=== PATIENT | female | born 2000 | race Caucasian/White ===

== ENCOUNTER 2018-05-29 18:23 | Emergency (ER) | payer OTHER ==
--- NOTE | 2018-05-29 20:29 | ER ---
Nurse's Notes [facility] Name: Mckenna Lou Age: 17 yrs Sex: Female : 2000 Arrival Date: 05/29/2018 Time: 18:25 Bed Treatment Private MD: None, None Diagnosis: Unspecified otitis externa, right ear Presentation: 05/29 19:04 Presenting complaint: Right ear pain x 2 weeks. Denies fever. Pt also reports she is hb approx 2 month . Transition of care: patient was not received from another setting of care. Onset of symptoms was May 18, 2018. Risk Assessment: Do you want to hurt yourself or someone else? Patient reports no desire to harm self or others. Care prior to arrival: None. 19:04 Method Of Arrival: Ambulatory hb 19:04 Acuity: VICKY 4 hb 20:21 Initial Sepsis Screen: Does the patient meet any 2 criteria? No. Patient's initial mg2 sepsis screen is negative. Does the patient have a suspected source of infection? No. Patient's initial sepsis screen is negative. 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 - Social history:: Smoking status: Patient/guardian denies using tobacco. - Ebola Screening: : No symptoms or risks identified at this time. Screenin:20 Abuse screen: Denies threats or abuse. Denies injuries from another. Nutritional mg2 screening: No deficits noted. Tuberculosis screening: No symptoms or risk factors identified. Fall Risk None identified. Assessment: 20:18 General: Appears in no apparent distress. comfortable, Behavior is calm, cooperative. mg2 Pain: Complains of pain in right ear Pain radiates to jaw Pain currently is 2 out of 10 on a pain scale. Quality of pain is described as aching, Pain began gradually, 2 weeks ago Is intermittent. Neuro: Level of Consciousness is awake, alert, obeys commands, Oriented to person, place, time, situation. Cardiovascular: Capillary refill < 3 seconds Patient's skin is warm and dry. Respiratory: Airway is patent Respiratory effort is even, unlabored, Respiratory pattern is regular, symmetrical. GI: No signs and/or symptoms were reported involving the gastrointestinal system. : No signs and/or symptoms were reported regarding the genitourinary system. EENT: Ear canal redness . Reports pain in right ear. Derm: Skin is intact, is healthy with good turgor, Skin is pink, warm \T\ dry. normal. Musculoskeletal: Circulation, motion, and sensation intact. Capillary refill < 3 seconds. Vital Signs: 19:05 BP 100 / 73; Pulse 76; Resp 16; Temp 97.9; Pulse Ox 100% on R/A; Pain 8/10; hb ED Course: 18:25 Patient arrived in ED. sb2 18:26 None, None is Private Physician. sb2 19:05 Triage completed. hb 19:06 Arm band placed on. hb 19:40 Michael Parr NP is PHCP. pm1 19:40 Ayush Mari MD is Attending Physician. pm1 20:09 Mohit Choi, FLORENCE is Primary Nurse. mg2 20:20 No provider procedures requiring assistance completed. Patient did not have IV access mg2 during this emergency room visit. 20:21 Patient has correct armband on for positive identification. Door closed. mg2 Administered Medications: No medications were administered Outcome: 20:29 Discharge ordered by MD. pm1 20:42 Discharged to home ambulatory, with family. mg2 20:42 Condition: stable 20:42 Discharge instructions given to patient, family, Instructed on discharge instructions, follow up and referral plans. medication usage, Demonstrated understanding of instructions, follow-up care, medications. 20:43 Patient left the ED. mg2 Signatures: Michael Parr NP MATERIAL CONTROL SUPERVISOR pm1 Svetlana Chacon RN RN Emmy Cornelius sb2 Mohit Choi, FLORENCE RN mg2 Corrections: (The following items were deleted from the chart) 19:07 19:04 Presenting complaint: Right ear pain x 2 weeks. Denies fever hb hb
--- NOTE | 2018-05-29 20:30 | EDPHYS ---
Physician Documentation [facility] Name: Mckenna Lou Age: 17 yrs Sex: Female : 2000 Arrival Date: 05/29/2018 Time: 18:25 Bed Treatment Private MD: None, None ED Physician Ayush Mari HPI: 05/29 20:25 This 17 yrs old Female presents to ER via Ambulatory with complaints of Right pm1 Ear Pain. 20:25 The patient presents with pain. The complaints affect the right ear. Onset: The pm1 symptoms/episode began/occurred 2 week(s) ago. Modifying factors: The symptoms are alleviated by nothing, the symptoms are aggravated by nothing. Associated signs and symptoms: Pertinent negatives: cough, fever, rhinorrhea. Severity of symptoms: in the emergency department the symptoms are worse. The patient has not experienced similar symptoms in the past. The patient has not recently seen a physician, and does not have an established primary care provider. Pain coming and going for the past two weeks. Worse the past few days. Patient has been taking baths. 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 - Social history:: Smoking status: Patient/guardian denies using tobacco. - Ebola Screening: : No symptoms or risks identified at this time. ROS: 20:25 Constitutional: Negative for fever, chills, and weight loss, Eyes: Negative for injury, pm1 pain, redness, and discharge. 20:25 Neck: Negative for injury, pain, and swelling, Cardiovascular: Negative for chest pain, palpitations, and edema, Respiratory: Negative for shortness of breath, cough, wheezing, and pleuritic chest pain, Abdomen/GI: Negative for abdominal pain, nausea, vomiting, diarrhea, and constipation, Back: Negative for injury and pain, : Negative for injury, bleeding, discharge, and swelling, MS/Extremity: Negative for injury and deformity, Skin: Negative for injury, rash, and discoloration, Neuro: Negative for headache, weakness, numbness, tingling, and seizure. 20:25 ENT: Positive for ear pain, Negative for drainage from ear(s), hearing loss, rhinorrhea, sinus congestion, sinus pain, sore throat, dental pain, difficulty swallowing, difficulty handling secretions, hoarseness. Exam: 20:25 Constitutional: This is a well developed, well nourished patient who is awake, alert, pm1 and in no acute distress. Head/Face: Normocephalic, atraumatic. Eyes: Pupils equal round and reactive to light, extra-ocular motions intact. Lids and lashes normal. Conjunctiva and sclera are non-icteric and not injected. Cornea within normal limits. Periorbital areas with no swelling, redness, or edema. 20:25 Neck: Trachea midline, no thyromegaly or masses palpated, and no cervical lymphadenopathy. Supple, full range of motion without nuchal rigidity, or vertebral point tenderness. No Meningismus. Chest/axilla: Normal chest wall appearance and motion. Nontender with no deformity. No lesions are appreciated. Cardiovascular: Regular rate and rhythm with a normal S1 and S2. No gallops, murmurs, or rubs. Normal PMI, no JVD. No pulse deficits. Respiratory: Lungs have equal breath sounds bilaterally, clear to auscultation and percussion. No rales, rhonchi or wheezes noted. No increased work of breathing, no retractions or nasal flaring. Abdomen/GI: Soft, non-tender, with normal bowel sounds. No distension or tympany. No guarding or rebound. No evidence of tenderness throughout. Back: No spinal tenderness. No costovertebral tenderness. Full range of motion. Skin: Warm, dry with normal turgor. Normal color with no rashes, no lesions, and no evidence of cellulitis. MS/ Extremity: Pulses equal, no cyanosis. Neurovascular intact. Full, normal range of motion. 20:25 ENT: External ear(s): pain with movement, Ear canal(s): erythema, that is minimal, of the right canal, swelling, that is minimal, TM's: are normal, no evidence of bulging, no dullness, no erythema, no fluid levels, no hemotympanum, no rupture, normal bony landmarks, Examination of the other ear shows no obvious abnormality, Nose: no acute changes, Mouth: is normal, no gum abnomalities, no lip abnormalities, no mucosal abnormalities, no tongue abnormalities, Dental exam: normal, no dental caries, no injury, no missing teeth, no pain, no trismus. 20:25 Neuro: Orientation: is normal, Motor: is normal, Gait: is steady, at a normal pace, without difficulty. Vital Signs: 19:05 BP 100 / 73; Pulse 76; Resp 16; Temp 97.9; Pulse Ox 100% on R/A; Pain 8/10; hb MDM: 19:50 Patient medically screened. [facility] 20:25 Data reviewed: vital signs. Data interpreted: Pulse oximetry: on room air is 100 %. pm1 Interpretation: normal. Counseling: I had a detailed discussion with the patient and/or guardian regarding: the historical points, exam findings, and any diagnostic results supporting the discharge/admit diagnosis, the need for outpatient follow up, to return to the emergency department if symptoms worsen or persist or if there are any questions or concerns that arise at home. Administered Medications: No medications were administered Disposition: 05/30 07:38 Co-signature as Attending Physician, Ayush Mari MD I agree with the assessment and [facility] plan of care. Disposition: 05/29/18 20:29 Discharged to Home. Impression: Unspecified otitis externa, right ear. - Condition is Stable. - Discharge Instructions: Ear Drops, Adult, Otitis Externa. - Prescriptions for Cortisporin 3.5- 10,000-1 mg/mL-unit/mL-% Otic solution - instill 4 drop by OTIC route every 6 hours for 10 days dispense suspension; 10 milliliter. - Medication Reconciliation Form, Thank You Letter, Antibiotic Education form. - Follow up: Emergency Department; When: As needed; Reason: Worsening of condition. Follow up: Private Physician; When: 2 - 3 days; Reason: Recheck today's complaints, Continuance of care, Re-evaluation by your physician. - Problem is new. - Symptoms have improved. Signatures: Ayush Mari MD MD cha Marinas, Patrick, PRESENTATION DESIGNER PRESENTATION DESIGNER pm1 Svetlana Chacon, FLORENCE RN hb Mohit Choi RN RN mg2 Corrections: (The following items were deleted from the chart) 05/29 20:43 20:29 05/29/2018 20:29 Discharged to Home. Impression: Unspecified otitis externa, mg2 right ear. Condition is Stable. Forms are Medication Reconciliation Form, Thank You Letter, Antibiotic Education, Prescription Opioid Use. Follow up: Emergency Department; When: As needed; Reason: Worsening of condition. Follow up: Private Physician; When: 2 - 3 days; Reason: Recheck today's complaints, Continuance of care, Re-evaluation by your physician. Problem is new. Symptoms have improved. pm1
== END 2018-05-29 20:43 | disposition home or self-care (01) ==
LOC: ER 18:23
DX: H60.91 Unspecified otitis externa, right ear (principal)
CPT/HCPCS: 99281

== ENCOUNTER 2018-06-24 17:59 | Emergency (ER) | payer OTHER ==
--- OUTSIDE RECORDS SUMMARY | 2018-06-24 18:01 | XMS REPORT ---
:2000 [facility] [address] [place] [address] Dr. Torres [address] [place] [id number] Care Team Providers Name Role Phone Unavailable Unavailable Unavailable Problems This patient has no known problems. Allergies, Adverse Reactions, Alerts This patient has no known allergies or adverse reactions. Medications This patient has no known medications.
[2018-06-24 22:03] LABS: Urine Blood NEGATIVE (NEG); Urine Glucose NEGATIVE (NEG); Urine Protein NEGATIVE (NEG)
[2018-06-24] MEDS ORDERED: NA CHLORIDE 0.9% 1,000 ML ONE (22:08)
[2018-06-24 22:23] LABS: Absolute Lymphocytes (CBC) 3.2 K/uL (0.7-4.9); Absolute Monocytes 0.7 K/uL (0.1-1.3); Absolute Neutrophil 8.2 K/uL (1.8-8.0); Basophils % 0.3 % (0-1.3); Eosinophils % 1.2 % (0-4.4); Hematocrit 40.4 % (36.0-45.0); Lymphocytes % 26.1 % (15.3-44.8); MPV 8.5 fL (7.6-11.3); Monocytes % 5.9 % (3.3-12.3); RBC Red Blood Cell Count 4.88 M/uL (3.86-4.86)
--- NOTE | 2018-06-24 22:45 | ER ---
Nurse's Notes [facility] Name: Mckenna Lou Age: 18 yrs Sex: Female : 2000 Arrival Date: 06/24/2018 Time: 18:05 Bed 11 Private MD: Diagnosis: related conditions, unspecified, first trimester;Headache;Dizziness and giddiness Presentation: 06/24 18:29 Presenting complaint: Patient states: intermittent lightheadedness and dizziness that ss began this morning. Pt reports she is 12 weeks . Transition of care: patient was not received from another setting of care. Onset of symptoms was June 24, 2018. Risk Assessment: Do you want to hurt yourself or someone else?. Initial Sepsis Screen: Does the patient meet any 2 criteria? No. Patient's initial sepsis screen is negative. Does the patient have a suspected source of infection? No. Patient's initial sepsis screen is negative. Care prior to arrival: None. 18:29 Method Of Arrival: Ambulatory ss 18:29 Acuity: VICKY 3 ss Historical: - Allergies: 18:31 No Known Allergies; ss - Home Meds: 18:31 None [Active]; ss - PMHx: 18:31 None; ss - PSHx: 18:31 None; ss - Immunization history:: Adult Immunizations up to date. - Social history:: Smoking status: Patient/guardian denies using tobacco. - Ebola Screening: : Patient denies exposure to infectious person Patient denies travel to an Ebola-affected area in the 21 days before illness onset. - Family history:: not pertinent. Screenin/12 00:26 Abuse screen: Denies threats or abuse. Denies injuries from another. Nutritional lp1 screening: No deficits noted. Tuberculosis screening: No symptoms or risk factors identified. Fall Risk None identified. Assessment: 06/24 21:30 General: Appears in no apparent distress. Behavior is appropriate for age. Pain: lp1 Complains of pain in head Pain currently is 6 out of 10 on a pain scale. Also complains of photophobia, inability to concentrate. Neuro: Level of Consciousness is awake, alert, obeys commands, Reports headache in entire. Cardiovascular: Patient's skin is warm and dry. Respiratory: Respiratory effort is even, unlabored. GI: No deficits noted. Patient currently denies cramping. : No signs and/or symptoms were reported regarding the genitourinary system. EENT: No signs and/or symptoms were reported regarding the EENT system. Derm: Skin is pink, warm \T\ dry. Musculoskeletal: No deficits noted. 06/25 00:25 Reassessment: Patient appears in no apparent distress at this time. Patient is alert, lp1 oriented x 3, equal unlabored respirations, skin warm/dry/pink. Patient states feeling better. Vital Signs: 06/24 18:31 BP 112 / 64; Pulse 89; Resp 16; Temp 98.1(TE); Pulse Ox 97% on R/A; Weight 48.08 kg; ss Height 5 ft. 1 in. (154.94 cm); Pain 0/10; 20:24 BP 122 / 66; Pulse 80; Resp 16; Pulse Ox 98% on R/A; ea 03 00:24 BP 124 / 65; Pulse 87; Resp 16; Pulse Ox 99% on R/A; Pain 1/10; lp1 03 18:31 Body Mass Index 20.03 (48.08 kg, 154.94 cm) ED Course: 06/24 18:05 Patient arrived in ED. mr 18:30 Triage completed. ss 18:31 Arm band placed on right wrist. ss 21:05 Maureen Stanley, [place]OR[place] is Primary Nurse. lp1 21:06 Ayush Mari MD is Attending Physician. luis 21:[address] via wheelchair. vm2 21:45 Matter Eval Tm 1 In Process Unspecified. EDMS 21:46 CT completed. Patient tolerated procedure well. Patient moved back from CT. vm2 21:54 CT Head Brain wo Cont In Process Unspecified. EDMS 22:22 Inserted saline lock: 22 gauge in right antecubital area, using aseptic technique. lp1 Blood collected. 03 00:26 No provider procedures requiring assistance completed. IV discontinued, No lp1 redness/swelling at site. Pressure dressing applied. 00:27 Patient has correct armband on for positive identification. lp1 Administered Medications: 06/24 22:23 Drug: NS 0.9% 1000 ml Route: IV; Rate: 1 bolus; Site: right antecubital; lp1 06/25 00:00 Follow up: IV Status: Completed infusion; IV Intake: 1000ml lp1 Intake: 00:00 IV: 1000ml; Total: 1000ml. lp1 Outcome: 06/24 22:45 Discharge ordered by . luis 06/25 00:28 Discharged to home ambulatory, with significant other. lp1 Condition: good Discharge instructions given to patient, Instructed on discharge instructions, follow up and referral plans. medication usage, Demonstrated understanding of instructions, follow-up care, medications, Prescriptions given X 1. 00:29 Patient left the ED. lp1 Signatures: Dispatcher [employer] [facility] Ayush Mari MD MD cha Rivera, Pattie mr Flor Silva, RN RN Maureen Hanks RN RN lp1 Tonja Vazquez 2 Nithya Cardona RN RN edilberto Corrections: (The following items were deleted from the chart) 00:27 06/24 22:22 Inserted saline lock: 20 gauge in right antecubital area, using aseptic lp1 technique. Blood collected. lp1 06/25 00:28 06/24 21:30 Pain: Complains of pain in head Pain currently is 6 out of 10 on a pain lp1 scale. lp1 06/25 00:28 06/24 21:30 Neuro: Level of Consciousness is awake, alert, obeys commands, Reports lp1 headache in entire lp1
--- NOTE | 2018-06-24 22:45 | EDPHYS ---
Physician Documentation [facility] Name: Mckenna Lou Age: 18 yrs Sex: Female : 2000 Arrival Date: 06/24/2018 Time: 18:05 Bed 11 Private MD: ED Physician Ayush Mari HPI: 06/24 21:26 This 18 yrs old Female presents to ER via Ambulatory with complaints of 12 luis wks , Dizziness, Blurred Vision, Headache. 21:26 The patient presents with dizziness, feeling faint. Onset: The symptoms/episode luis began/occurred just prior to arrival, this morning. Context: occurred at work. Modifying factors: The symptoms are alleviated by nothing, the symptoms are aggravated by nothing. Associated signs and symptoms: The patient has no apparent associated signs or symptoms. Severity of symptoms: At their worst the symptoms were. Patient's baseline: Neuro: alert and fully oriented. The patient has not experienced similar symptoms in the past. Historical: - Allergies: 18:31 No Known Allergies; ss - Home Meds: 18:31 None [Active]; ss - PMHx: 18:31 None; ss - PSHx: 18:31 None; ss - Immunization history:: Adult Immunizations up to date. - Social history:: Smoking status: Patient/guardian denies using tobacco. - Ebola Screening: : Patient denies exposure to infectious person Patient denies travel to an Ebola-affected area in the 21 days before illness onset. - Family history:: not pertinent. ROS: 21:26 Constitutional: Negative for fever, chills, and weight loss, Eyes: Negative for injury, luis pain, redness, and discharge, ENT: Negative for injury, pain, and discharge, Neck: Negative for injury, pain, and swelling, Cardiovascular: Negative for chest pain, palpitations, and edema, Respiratory: Negative for shortness of breath, cough, wheezing, and pleuritic chest pain, Back: Negative for injury and pain, : Negative for injury, bleeding, discharge, and swelling, MS/Extremity: Negative for injury and deformity, Skin: Negative for injury, rash, and discoloration, Neuro: Negative for headache, weakness, numbness, tingling, and seizure, Psych: Negative for depression, anxiety, suicide ideation, homicidal ideation, and hallucinations, Allergy/Immunology: Negative for hives, rash, and allergies, Endocrine: Negative for neck swelling, polydipsia, polyuria, polyphagia, and marked weight changes, Hematologic/Lymphatic: Negative for swollen nodes, abnormal bleeding, and unusual bruising. 21:26 Abdomen/GI: Positive for abdominal pain, of the suprapubic area. Exam: 21:26 Constitutional: This is a well developed, well nourished patient who is awake, alert, luis and in no acute distress. Head/Face: Normocephalic, atraumatic. Eyes: Pupils equal round and reactive to light, extra-ocular motions intact. Lids and lashes normal. Conjunctiva and sclera are non-icteric and not injected. Cornea within normal limits. Periorbital areas with no swelling, redness, or edema. ENT: Nares patent. No nasal discharge, no septal abnormalities noted. Tympanic membranes are normal and external auditory canals are clear. Oropharynx with no redness, swelling, or masses, exudates, or evidence of obstruction, uvula midline. Mucous membranes moist. Neck: Trachea midline, no thyromegaly or masses palpated, and no cervical lymphadenopathy. Supple, full range of motion without nuchal rigidity, or vertebral point tenderness. No Meningismus. Chest/axilla: Normal chest wall appearance and motion. Nontender with no deformity. No lesions are appreciated. Cardiovascular: Regular rate and rhythm with a normal S1 and S2. No gallops, murmurs, or rubs. Normal PMI, no JVD. No pulse deficits. Respiratory: Lungs have equal breath sounds bilaterally, clear to auscultation and percussion. No rales, rhonchi or wheezes noted. No increased work of breathing, no retractions or nasal flaring. Back: No spinal tenderness. No costovertebral tenderness. Full range of motion. Skin: Warm, dry with normal turgor. Normal color with no rashes, no lesions, and no evidence of cellulitis. MS/ Extremity: Pulses equal, no cyanosis. Neurovascular intact. Full, normal range of motion. Neuro: Awake and alert, GCS 15, oriented to person, place, time, and situation. Cranial nerves II-XII grossly intact. Motor strength 5/5 in all extremities. Sensory grossly intact. Cerebellar exam normal. Normal gait. 21:26 Abdomen/GI: Inspection: abdomen appears normal, Bowel sounds: normal, Palpation: nontender, Liver: no appreciated palpable abnormalities, Hernia: not appreciated. Vital Signs: 18:31 BP 112 / 64; Pulse 89; Resp 16; Temp 98.1(TE); Pulse Ox 97% on R/A; Weight 48.08 kg; ss Height 5 ft. 1 in. (154.94 cm); Pain 0/10; 20:24 BP 122 / 66; Pulse 80; Resp 16; Pulse Ox 98% on R/A; ea 06/25 00:24 BP 124 / 65; Pulse 87; Resp 16; Pulse Ox 99% on R/A; Pain 1/10; lp1 06/24 18:31 Body Mass Index 20.03 (48.08 kg, 154.94 cm) ss MDM: 06/24 21:06 Patient medically screened. [facility] 21:28 Data reviewed: vital signs, nurses notes, lab test result(s), radiologic studies, luis ultrasound. 06/24 21:26 Order name: Quantitative Hcg; Complete Time: 23:19 [facility] 06/24 21:26 Order name: Abo/rh Typing; Complete Time: 23:19 [facility] 06/24 21:26 Order name: Basic Metabolic Panel; Complete Time: 23:19 [facility] 06/24 21:26 Order name: CBC with Diff; Complete Time: 22:41 [facility] 06/24 21:26 Order name: Urine Culture [facility] 06/24 21:43 Order name: Urine Dipstick--Ancillary (enter results); Complete Time: 22:41 ms 06/24 21:26 Order name: Urine Test (obtain specimen); Complete Time: 21:45 [facility] 06/24 21:26 Order name: IV Saline Lock; Complete Time: 22:43 [facility] 06/24 21:26 Order name: Labs collected and sent; Complete Time: 22:43 [facility] 06/24 21:26 Order name: CT Head Brain wo Cont [facility] 06/24 21:43 Order name: Urine --Ancillary (enter results); Complete Time: 22:41 ms 06/24 21:45 Order name: Matter Eval Tm 1 EDMS 06/24 21:26 Order name: NPO; Complete Time: 22:43 [facility] 06/24 21:26 Order name: Urine Dipstick-Ancillary (obtain specimen); Complete Time: 21:45 [facility] Administered Medications: 22:23 Drug: NS 0.9% 1000 ml Route: IV; Rate: 1 bolus; Site: right antecubital; lp1 06/25 00:00 Follow up: IV Status: Completed infusion; IV Intake: 1000ml lp1 Disposition: 06/24/18 22:45 Discharged to Home. Impression: related conditions, unspecified, first trimester, Headache, Dizziness and giddiness. - Condition is Stable. - Discharge Instructions: Dizziness, General Headache Without Cause, First Trimester of , [id number], First Trimester of , Pelvic Rest, General Headache Without Cause, [id number], Dizziness, [id number]. - Prescriptions for Vitamin 27- 0.8 mg Oral Tablet - take 1 tablet by ORAL route once daily; 30 tablet. - Medication Reconciliation Form, Thank You Letter, Antibiotic Education, Prescription Opioid Use form. - Follow up: Private Physician; When: 2 - 3 days; Reason: Recheck today's complaints, Continuance of care, Re-evaluation by your physician. - Problem is new. - Symptoms have improved. Signatures: Dispatcher [employer] [facility] Ayush Mari MD MD cha Smirch, Shelby, RN RN Maureen Stanley RN RN lp1 Corrections: (The following items were deleted from the chart) 06/24 21:44 21:27 OB Limited+US.RAD.BRZ ordered. [facility] 06/25 00:29 06/24 22:45 06/24/2018 22:45 Discharged to Home. Impression: related lp1 conditions, unspecified, first trimester; Headache; Dizziness and giddiness. Condition is Stable. Discharge Instructions: Dizziness, General Headache Without Cause, First Trimester of , [id number], First Trimester of , Pelvic Rest, General Headache Without Cause, Zemi-[id number], Dizziness, [id number]. Prescriptions for Vitamin 27-0.8 mg Oral Tablet - take 1 tablet by ORAL route once daily; 30 tablet. and Forms are Medication Reconciliation Form, Thank You Letter, Antibiotic Education, Prescription Opioid Use. Follow up: Private Physician; When: 2 - 3 days; Reason: Recheck today's complaints, Continuance of care, Re-evaluation by your physician. Problem is new. Symptoms have improved. luis
[2018-06-24 23:02] LABS: BUN Blood Urea Nitrogen 8 mg/dL (7-18); Bicarbonate 24 mmol/L (21-32); Glucose Level 81 mg/dL (74-106); HCG, Quantitative 66555 mIU/mL (1-3); Potassium 3.8 mmol/L (3.5-5.1); Sodium Level 136 mmol/L (136-145)
--- NOTE | 2018-06-25 08:57 | RAD REPORT ---
EXAM DESCRIPTION: US - Matter Amyal Tm 1 - 06/24/2018 9:45 pm CLINICAL HISTORY: , abdominal and pelvic pain and cramping Preliminary findings were provided at the time of the study. COMPARISON: None. FINDINGS: A single intrauterine gestation is identified. Heart rate is 168 bpm. No hematoma, mass or other suspicious finding. Hazard-rump length measurement corresponds to a 12 W 3 D age. EWA is 2018. No suspicion for placental abnormality. Neither ovary was identifiable. No adnexal abnormality seen. No blood or fluid in the cul de sac. IMPRESSION: Single 12 W 3 D intrauterine gestation. EWA is 01/03/2019. No uterine or adnexal abnormalities seen.
--- NOTE | 2018-06-25 11:58 | RAD REPORT ---
EXAM DESCRIPTION: CT - Head Brain Wo Cont - 06/24/2018 9:54 pm CLINICAL HISTORY: The patient is 18 years old and is Female; intermittent lightheadedness and dizzin ess TECHNIQUE: Axial computed tomography images of the head/brain without intravenous contrast. Sagitt al and coronal reformatted images were created and reviewed. This CT exam was performed using one o r more of the following dose reduction techniques: automated exposure control, adjustment of the mA and/or kV according to patient size, and/or use of iterative reconstruction technique. COMPARISON: No relevant prior studies available. FINDINGS: Brain: Unremarkable. The concepcion-white matter differentiation is preserved . No hemorrhag e. No significant white matter disease. No edema. No extra-axial fluid collections. Ventricles: Unremarkable. No ventriculomegaly. Bones/joints: No acute fracture. Soft tissues: Unremarkable. Sinuses: Unremarkable as visualized. No acute sinusitis. Mastoid air cells: Unremarkable as visualized. No mastoid effusion. IMPRESSION: No acute intracranial findings. Electronically signed by: Dorothy Gary MD 06/24/2018 9:59 PM CDT Due to temporary technical issues with the PACS/Fluency reporting system, reports are being signed by the in house radiologist as a courtesy to ensure prompt reporting. The interpreting radiologist is f ully responsible for the content of the report.
== END 2018-06-25 00:29 | disposition home or self-care (01) ==
LOC: ER 17:59
DX: O26.891 Other specified pregnancy related conditions, first trimester (principal); R42 Dizziness and giddiness; R51 Headache; Z3A.12 12 weeks gestation of pregnancy
CPT/HCPCS: 36415; 70450; 76801; 80048; 81003; 81025; 84702; 85025; 86900; 86901; 87086; 87088; 96360; 96361; 99284; J7030

== ENCOUNTER 2019-09-24 12:04 | Emergency (ER) | payer OTHER ==
--- OUTSIDE RECORDS SUMMARY | 2019-09-24 12:07 | XMS REPORT | Continuity of Care Document ---
:2000 Author Organization [facility] t Address [address] [place] [address] Care Team Providers Name Role Phone Carlos HENRIQUEZ Attending Clinician Unavailable Armond Cunningham MD Attending Clinician Naomy Odonnell CRNA Attending Clinician Doctor Unassigned, Name Attending Clinician Unavailable Marty BRAND Attending Clinician Dina HENRIQUEZ Attending Clinician Unavailable [facility] Attending Clinician Armond Cunningham MD Admitting Clinician Marty BRAND Admitting Clinician Problems This patient has no known problems. Allergies, Adverse Reactions, Alerts This patient has no known allergies or adverse reactions. Medications This patient has no known medications. Procedures This patient has no known procedures. Encounters Start End Encounter Admission Attending Care Care Encounter Source Date/Time Date/Time Type Type Clinicians Facility Department ID 2019-09-18 2019-09-18 Nurse Camryn Gonzalez [id number] 00:00:00 00:00:00 Triage ARIADNE [id number] [facility] [id number] 2018-12-13 2018-12-16 [facility] Moon Cunningham [id number] 07:25:00 12:05:00 Encounter Armond Meredith [id number] [place] [id number] [place] [id number] 2018-12-14 2018-12-14 Anesthesia [place], [facility] [id number] 08:17:00 10:21:00 Irineo Meredith [id number] [place] [id number] [place] [id number] 2018-12-11 2018-12-11 Routine Cunningham, Moon [facility] [id number] 15:00:14 16:08:54 Armond Meredith 350.1.13.10 Visit [place] [id number] [facility] [id number] [address] 2018-12-11 2018-12-11 Orders Doctor KOBI [id number] 00:00:00 00:00:00 Only Unassigned, ARIADNE 350.1.13.10 [place] [id number] 2018-12-07 2018-12-08 [facility] KOBI Ferguson [id number] 22:27:00 02:15:00 Encounter Rosa Elena ARIADNE [id number] [place] [id number] [id number] 2018-12-07 2018-12-07 Nurse Milka Arroyo [id number] 00:00:00 00:00:00 Triage ARIADNE 350.1.13.10 [place] [id number] 2018-12-07 2018-12-07 Orders Doctor KOBI [id number] 00:00:00 00:00:00 Only Unassigned, ARIADNE 350.1.13.10 [place] [address]686 [id number] 2018-12-03 2018-12-03 [facility] [id number] 12:47:14 21:55:17 Visit [facility] [id number] [facility] [id number] [id number] 2018-11-20 2018-11-20 Orders Doctor PEACE [id number] 00:00:00 00:00:00 Only Unassigned, ARIADNE 350.1.13.10 [place] [facility] 4.2.7.2.686 [id number] 2018-11-18 2018-11-18 Patient Doctor KOBI [id number] 00:00:00 00:00:00 Secure Msg Unassigned, [facility]13.10 [facility] [id number] [id number] Results This patient has no known results.
--- OUTSIDE RECORDS SUMMARY | 2019-09-24 12:07 | XMS REPORT | Summary of Care ---
:2000 Author Organization [facility] Address [address] [place] [id number] Care Team Providers Name Role Phone Moon Cunningham MD Primary Care Provider Reason for Visit Reason Comments Assessment calf/ankle pain, swelling Encounter Details Date Type Department Care Team Description 09/18/2019 Nurse Triage [facility] Camryn Gonzalez RN Assessment (calf/ankle [address] pain, swellin g) [place] [address] Allergies No Known Allergiesdocumented as of this encounter (statuses as of 09/18/2019) Medications Medication Sig Dispensed Refills Start Date End Date Status vitamin w/FA Take 1 tablet by 100 tablet 3 12/16/2018 Active tabletIndications: 36 mouth daily. weeks gestation of , Maternal care for decelerations during , labor in third trimester with delivery, single or unspecified fetus, Liveborn infant, of sprague , born in hospital by delivery documented as of this encounter (statuses as of 09/18/2019) Active Problems Problem Noted Date depression 01/27/2019 labor 12/14/2018 documented as of this encounter (statuses as of 09/18/2019) Resolved Problems Problem Noted Date Resolved Date Liveborn infant, of sprague , born in hospital by 12/14/2018 01/27/2019 delivery Maternal care for decelerations during 12/1301/27/2019 Threatened labor, third trimester 12/13/2018 12/14/2018 36 weeks gestation of 12/01/2018 01/28/20 Abdominal pain affecting , antepartum 12/01/2018 12/13/2018 26 weeks gestation of 10/04/2018 12/14/19 19 documented as of this encounter (statuses as of 09/18/2019) Immunizations Name Administration Dates Next Due Influenza Virus Vaccine Quad .5 mL IM 6+ MO 06/12/2018 06/12/2019 TDAP (ADACEL) VACCINE 10/15/2018 documented as of this encounter Social History Tobacco Use Types Packs/Day Years Used Date Never Smoker Smokeless Tobacco: Never Used Alcohol Use Drinks/Week oz/Week Comments No Sex Assigned at Date Recorded Not on file Job Start Date Occupation Industry Not on file Not on file Not on file Travel History Travel Start Travel End No recent travel history available. COVID-19 Exposure Response Date Recorded In the last month, have you been in contact with No / Unsure 09/18/2019 9:18 PM CDT someone who was confirmed or suspected to have Coronavirus / COVID-19? documented as of this encounter Last Filed Vital Signs Not on filedocumented in this encounter Plan of Treatment Health Maintenance Due Date Last Done Comments MENINGOCOCCAL B VACCINES (1 of 2008 2 - Risk Bexsero 2-dose series) HPV VACCINES (1 - Female 2009 2-dose series) WELL CARE VISIT: 12-21 YEARS 2010 (yearly) PAP SMEAR 2019 CHLAMYDIA SCREENING 12/09/2019 12/08/2018, 06/12/2018 Depression Screening 12/12/2019 12/11/2018 INFLUENZA VACCINE (Season 12/16/2019 06/12/2018 Ended) DTaP,Tdap,and Td Vaccines (2 - 10/15/2028 10/15/2018 Td) MENINGOCOCCAL VACCINE Aged Out No longer eligible based on patient's age to complete this to pic PNEUMOCOCCAL 0-64 YEARS Aged Out No longe r eligible based COMBINED SERIES on patient's age to complete this to pic documented as of this encounter Results Not on filedocumented in this encounter Insurance Payer Benefit Plan / Subscriber ID Effective Phone Address T e Group Dates [facility] xxxxxxxxx 2018-Prese [address] Medic aid HEALTH CHOICE - HEALTH CHOICE nt [id number] 1 MANAGED MEDICAID [place], [place] [id number] documented as of this encounter
[2019-09-24 13:32] LABS: Urine Blood TRACE (NEG); Urine Glucose NEGATIVE (NEG); Urine Protein NEGATIVE (NEG)
[2019-09-24] MEDS ORDERED: ACETAMINOPHEN 325 MG TABLET ONE (13:54)
--- NOTE | 2019-09-24 14:15 | ER ---
Nurse's Notes [facility] Name: Mckenna Lou Age: 19 yrs Sex: Female : 2000 Arrival Date: 09/24/2019 Time: 12:09 Bed 18 Private MD: Diagnosis: Fever, unspecified;Acute pharyngitis Presentation: 09/23 12:12 Chief complaint: Patient states: i woke up this morning and my throat was really sore tw2 and i have a fever this morning, i took tylenol this morning about 1130, i think it might be strep. Coronavirus screen: Patient denies a cough. Patient denies shortness of breath or difficulty breathing. Patient reports a measured and/or subjective temperature greater than 100.4F. Patient denies travel on a cruise ship or to a country the [facility] currently lists as an affected area. Patient denies contact with known and/or suspected case of COVID-19. Ebola Screen: Patient denies travel to an Ebola-affected area in the 21 days before illness onset. Initial Sepsis Screen: Does the patient meet any 2 criteria? HR > 90 bpm. No. Patient's initial sepsis screen is negative. Does the patient have a suspected source of infection? No. Patient's initial sepsis screen is negative. Risk Assessment: Do you want to hurt yourself or someone else? Patient reports no desire to harm self or others. Onset of symptoms was September 24, 2019. 12:12 Method Of Arrival: Ambulatory tw2 12:12 Acuity: VICKY 4 tw2 Triage Assessment: 12:14 General: Appears in no apparent distress. slender, well groomed, Behavior is calm, tw2 cooperative, appropriate for age. Pain: Complains of pain in uvula, left aspect of posterior pharynx and right aspect of posterior pharynx and forehead. EENT: Denies nasal congestion, nasal discharge. 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 - Social history:: Smoking status: Patient/guardian denies using. Screenin:22 Abuse screen: Denies threats or abuse. Nutritional screening: No deficits noted. tw2 Tuberculosis screening: No symptoms or risk factors identified. Fall Risk None identified. Assessment: 12:20 General: Appears in no apparent distress. slender, well groomed, Behavior is calm, iw cooperative, appropriate for age. Pain: Complains of pain in right aspect of posterior pharynx and left aspect of posterior pharynx and uvula. Neuro: Level of Consciousness is awake, alert, obeys commands, Oriented to person, place, time, situation. Cardiovascular: Heart tones S1 S2 Patient's skin is warm and dry. Respiratory: Airway is patent Respiratory effort is even, unlabored, Respiratory pattern is regular, symmetrical, Breath sounds are clear bilaterally. GI: No signs and/or symptoms were reported involving the gastrointestinal system. Abdomen is flat, non-distended. : No signs and/or symptoms were reported regarding the genitourinary system. EENT: Throat is reddened Reports pain in right aspect of posterior pharynx and left aspect of posterior pharynx when swallowing. Derm: No signs and/or symptoms reported regarding the dermatologic system. Musculoskeletal: Range of motion: intact in all extremities. 13:59 Reassessment: Patient appears in no apparent distress at this time. No changes from iw previously documented assessment. Patient and/or family updated on plan of care and expected duration. Pain level reassessed. Patient is alert, oriented x 3, equal unlabored respirations, skin warm/dry/pink. pt sipping on juice at this time. 14:45 Reassessment: Patient appears in no apparent distress at this time. No changes from tw2 previously documented assessment. Patient and/or family updated on plan of care and expected duration. Pain level reassessed. Patient is alert, oriented x 3, equal unlabored respirations, skin warm/dry/pink. Vital Signs: 12:12 BP 117 / 66; Pulse 118; Resp 18; Temp 99.1(TE); Pulse Ox 98% on R/A; Weight 47.63 kg tw2 (R); Height 5 ft. 1 in. (154.94 cm); Pain 9/10; 14:01 BP 101 / 49; Pulse 92; Resp 17; Pulse Ox 100% on R/A; iw 14:45 Temp 98.8(TE); tw2 12:12 Body Mass Index 19.84 (47.63 kg, 154.94 cm) tw2 [place] Coma Score: 13:31 Eye Response: spontaneous(4). Verbal Response: oriented(5). Motor Response: obeys luis commands(6). Total: 15. ED Course: 12:09 Patient arrived in ED. mr 12:14 Triage completed. tw2 12:14 Arm band placed on. tw2 12:15 Bed in low position. Call light in reach. tw2 12:17 Sally Lee, RN is Primary Nurse. iw 12:28 Ayush Mari MD is Attending Physician. luis 13:11 Flu and/or RSV swab sent to lab. Strep swab sent to lab. jp3 13:21 Urine collected: clean catch specimen, clear, jessi colored. jp3 14:37 No provider procedures requiring assistance completed. Patient did not have IV access tw2 during this emergency room visit. Administered Medications: 13:49 Drug: Tylenol 650 mg Route: PO; hb 14:36 Follow up: Response: No adverse reaction tw2 14:30 Drug: Augmentin 875 mg Route: PO; tw2 14:45 Follow up: Response: No adverse reaction tw2 Point of Care Testing: Urine : 13:21 hCG Reading: Negative; Control Reading: Positive; jp3 Outcome: 14:13 Discharge ordered by . luis 14:37 Discharged to home ambulatory. tw2 14:45 Condition: stable tw2 14:45 Discharge instructions given to patient, Instructed on discharge instructions, follow up and referral plans. medication usage, Demonstrated understanding of instructions, follow-up care, medications, Prescriptions given X 1. 14:46 Patient left the ED. tw2 Signatures: Ayush Mari MD MD cha Rivera, Mary mr Sally Lee, RN RN Svetlana Chacon RN RN Izzy Kirk RN RN tw2 [place] jp3 Corrections: (The following items were deleted from the chart) 14:03 13:59 Reassessment: Patient appears in no apparent distress at this time. No changes iw from previously documented assessment. Patient and/or family updated on plan of care and expected duration. Pain level reassessed. Patient is alert, oriented x 3, equal unlabored respirations, skin warm/dry/pink. iw 14:04 14:01 BP 110 / 74; Pulse 92bpm; Resp 17bpm; Pulse Ox 100% RA; iw iw
--- NOTE | 2019-09-24 14:15 | EDPHYS ---
Physician Documentation [facility] Name: Mckenna Lou Age: 19 yrs Sex: Female : 2000 Arrival Date: 09/24/2019 Time: 12:09 Bed 18 Private MD: ED Physician Ayush Mari HPI: 09/23 13:25 This 19 yrs old Female presents to ER via Ambulatory with complaints of luis Fever, Sore Throat, Headache. 13:25 The patient reports fever, that was measured at 102 degrees Fahrenheit. Onset: The luis symptoms/episode began/occurred 2 day(s) ago. Onset: The symptoms/episode began/occurred acutely. Modifying factors: there are no obvious modifying factors. Associated signs and symptoms: Pertinent positives: chills, runny nose, sinus congestion. Severity of symptoms: At their worst the symptoms were mild in the emergency department the symptoms are unchanged. The patient has not experienced similar symptoms in the past. BUNDLE PERSON: 12:52 LMP 09/24/2019 tw2 Historical: - Allergies: 12:15 No Known Allergies; tw2 - Home Meds: 12:15 None [Active]; tw2 - PMHx: 12:15 None; tw2 - PSHx: 12:15 ; tw2 - Immunization history:: Adult Immunizations. - Social history:: Smoking status: Patient/guardian denies using. ROS: 13:27 Eyes: Negative for injury, pain, redness, and discharge, Neck: Negative for injury, luis pain, and swelling, Cardiovascular: Negative for chest pain, palpitations, and edema, Respiratory: Negative for shortness of breath, cough, wheezing, and pleuritic chest pain, Abdomen/GI: Negative for abdominal pain, nausea, vomiting, diarrhea, and constipation, Back: Negative for injury and pain, : Negative for injury, bleeding, discharge, and swelling, MS/Extremity: Negative for injury and deformity, Neuro: Negative for headache, weakness, numbness, tingling, and seizure, Psych: Negative for depression, anxiety, suicide ideation, homicidal ideation, and hallucinations, Allergy/Immunology: Negative for hives, rash, and allergies, Endocrine: Negative for neck swelling, polydipsia, polyuria, polyphagia, and marked weight changes, Hematologic/Lymphatic: Negative for swollen nodes, abnormal bleeding, and unusual bruising. 13:27 Constitutional: Positive for body aches, chills, fever. 13:27 ENT: Positive for difficulty swallowing, rhinorrhea, sinus congestion, sinus pain, sore throat. Exam: 13:27 Constitutional: This is a well developed, well nourished patient who is awake, alert, luis and in no acute distress. Head/Face: Normocephalic, atraumatic. Eyes: Pupils equal round and reactive to light, extra-ocular motions intact. Lids and lashes normal. Conjunctiva and sclera are non-icteric and not injected. Cornea within normal limits. Periorbital areas with no swelling, redness, or edema. Neck: Trachea midline, no thyromegaly or masses palpated, and no cervical lymphadenopathy. Supple, full range of motion without nuchal rigidity, or vertebral point tenderness. No Meningismus. Chest/axilla: Normal chest wall appearance and motion. Nontender with no deformity. No lesions are appreciated. Cardiovascular: Regular rate and rhythm with a normal S1 and S2. No gallops, murmurs, or rubs. Normal PMI, no JVD. No pulse deficits. Respiratory: Lungs have equal breath sounds bilaterally, clear to auscultation and percussion. No rales, rhonchi or wheezes noted. No increased work of breathing, no retractions or nasal flaring. Abdomen/GI: Soft, non-tender, with normal bowel sounds. No distension or tympany. No guarding or rebound. No evidence of tenderness throughout. Back: No spinal tenderness. No costovertebral tenderness. Full range of motion. Skin: Warm, dry with normal turgor. Normal color with no rashes, no lesions, and no evidence of cellulitis. MS/ Extremity: Pulses equal, no cyanosis. Neurovascular intact. Full, normal range of motion. Neuro: Awake and alert, GCS 15, oriented to person, place, time, and situation. Cranial nerves II-XII grossly intact. Motor strength 5/5 in all extremities. Sensory grossly intact. Cerebellar exam normal. Normal gait. Psych: Awake, alert, with orientation to person, place and time. Behavior, mood, and affect are within normal limits. 13:27 ENT: Posterior pharynx: Airway: normal, no evidence of obstruction, Tonsils: enlarged on the right, enlarged on the left, bilaterally enlarged, with erythema, with exudate, Uvula: normal, midline, non-edematous, no erythema, swelling, is not appreciated, that is mild, erythema, is not appreciated, that is mild, exudate, is not appreciated, peritonsillar mass, is not appreciated. 13:27 Neck: ROM/movement: is normal, no acute changes, Meningeal signs: are not present, Kernig's sign is negative, Brudzinski's sign is negative. Vital Signs: 12:12 BP 117 / 66; Pulse 118; Resp 18; Temp 99.1(TE); Pulse Ox 98% on R/A; Weight 47.63 kg tw2 (R); Height 5 ft. 1 in. (154.94 cm); Pain 9/10; 14:01 BP 101 / 49; Pulse 92; Resp 17; Pulse Ox 100% on R/A; iw 14:45 Temp 98.8(TE); tw2 12:12 Body Mass Index 19.84 (47.63 kg, 154.94 cm) tw2 [place] Coma Score: 13:31 Eye Response: spontaneous(4). Verbal Response: oriented(5). Motor Response: obeys [facility] commands(6). Total: 15. MDM: 12:28 Patient medically screened. [facility] 13:29 Data reviewed: vital signs, nurses notes, lab test result(s), Flu: strep. [facility] 13:31 Differential diagnosis: viral Infection, bacterial infection, URI, bronchitis, group A luis strep tonsillitis. Data interpreted: monitor worker: not applicable for this patient encounter. Pulse oximetry: on room air is 98 %. Counseling: I had a detailed discussion with the patient and/or guardian regarding: the historical points, exam findings, and any diagnostic results supporting the discharge/admit diagnosis, lab results. 14:08 ED course: weak, fever , sore throat and weakness. [facility] 14:45 ED course: case and finding explained to the patient. a note to work was givin to the [facility] patient through 09/26/19. 09/23 13:04 Order name: Flu; Complete Time: 14:04 iw 09/23 13:04 Order name: Strep; Complete Time: 14:04 09/23 13:27 Order name: Urine Dipstick--Ancillary (enter results); Complete Time: 14:04 09/23 13:27 Order name: Urine --Ancillary (enter results); Complete Time: 14:04 09/23 13:49 Order name: Throat Culture [facility] 09/23 13:30 Order name: PO challenge; Complete Time: 13:44 [facility] Administered Medications: 13:49 Drug: Tylenol 650 mg Route: PO; 14:36 Follow up: Response: No adverse reaction tw2 14:30 Drug: Augmentin 875 mg Route: PO; tw2 14:45 Follow up: Response: No adverse reaction tw2 Point of Care Testing: Urine : 13:21 hCG Reading: Negative; Control Reading: Positive; jp3 Disposition: 09/24/19 14:13 Discharged to Home. Impression: Fever, unspecified, Acute pharyngitis. - Condition is Stable. - Discharge Instructions: Fever, Adult, Pharyngitis, Pharyngitis, [id number]-[id number], Sore Throat, Gwav-rv-Vjaf, Fever, Adult, [id number]-[id number]. - Prescriptions for Augmentin 875- 125 mg Oral Tablet - take 1 tablet by ORAL route every 12 hours for 7 days; 14 tablet. - Medication Reconciliation Form, Thank You Letter, Antibiotic Education, Prescription Opioid Use, Work release form form. - Follow up: Private Physician; When: 2 - 3 days; Reason: Recheck today's complaints, Continuance of care, Re-evaluation by your physician. - Problem is new. - Symptoms have improved. Signatures: Dispatcher [employer] [facility] Ayush Mari MD MD cha Baxter, Heather, RN RN Izzy Kirk RN RN tw2 Corrections: (The following items were deleted from the chart) 14:46 14:13 09/24/2019 14:13 Discharged to Home. Impression: Fever, unspecified; Acute tw2 pharyngitis. Condition is Stable. Forms are Work release form, Medication Reconciliation Form, Thank You Letter, Antibiotic Education, Prescription Opioid Use. Follow up: Private Physician; When: 2 - 3 days; Reason: Recheck today's complaints, Continuance of care, Re-evaluation by your physician. Problem is new. Symptoms have improved. [facility]
[2019-09-24] MEDS ORDERED: AMOX/K CLAV 875 MG TAB ONE (14:41)
[2019-09-24 14:54] VITALS: BP 101/49; O2SAT 100
[2019-09-24 14:55] VITALS: TEMP 98.8
== END 2019-09-24 14:46 | disposition home or self-care (01) ==
LOC: ER 12:04
DX: R50.9 Fever, unspecified (principal); J02.9 Acute pharyngitis, unspecified
CPT/HCPCS: 81003; 81025; 87070; 87081; 87804; 99283

== ENCOUNTER 2020-10-31 05:51 | Emergency (ER) | payer OTHER ==
--- OUTSIDE RECORDS SUMMARY | 2020-10-31 05:55 | XMS REPORT | Continuity of Care Document ---
:2000 Author Organization [facility] t Address [address] [place] [address] Care Team Providers Name Role Phone Tavares Swanson DO Attending Clinician Ryan BRAND Attending Clinician Problems This patient has no known problems. Allergies, Adverse Reactions, Alerts This patient has no known allergies or adverse reactions. Medications This patient has no known medications. Procedures This patient has no known procedures. Encounters Start End Encounter Admission Attending Care Care Encounter Source Date/Time Date/Time Type Type Clinicians Facility Department ID 2020-07-06 2020-07-06 Patient ILIA Swanson [id number] 00:00:00 00:00:00 Outreach [facility] [id number] Tavares [facility] [id number] PAVILLION [phone] [facility] 2020-02-17 2020-02-17 [facility] [id number] 00:00:00 00:00:00 Oscar Meredith [id number] [place] [id number] Professio [phone] nal 044 [facility] 2020-01-20 2020-01-20 [facility] [id number] 00:00:00 00:00:00 Oscar Meredith [id number] [place] [id number] Professio [phone] nal [address] [place] [address] 2020-01-17 2020-01-17 [facility] [id number] 00:00:00 00:00:00 Oscar Meredith [id number] [place] [id number] Professio [phone] [address] 2020-01-05 2020-01-05 [facility] [id number] 00:00:00 00:00:00 Oscar Viri [id number] [place] [id number] Professio [phone] [address] 2019-12-29 2019-12-29 [facility] [id number] 00:00:00 00:00:00 Oscar Meredith [id number] [place] [id number] Professio [phone] [address] 2019-12-25 2019-12-25 Office [facility] [id number] 09:51:03 10:55:51 Visit Oscar [place] [id number] [place] [id number] Professio [phone] [address] Results This patient has no known results.
[2020-10-31] MEDS ORDERED: HYDROCODONE/CHLORPHEN 5 ML/OSYR ONE (07:12)
[2020-10-31 07:26] LABS: Urine Blood Negative (Negative); Urine Glucose Negative (Negative); Urine Protein Negative (Negative); Urine Specific Gravity 1.025 (1.005-1.030); Urine pH 5.5 (5.0-7.0)
--- NOTE | 2020-10-31 07:39 | RAD REPORT ---
EXAM DESCRIPTION: RAD - Chest Single View - 10/31/2020 6:58 am CLINICAL HISTORY: COUGH Chest pain. COMPARISON: No comparisons FINDINGS: Portable technique limits examination quality. The lungs are grossly clear. The heart is normal in size. No displaced fractures. IMPRESSION: No acute intrathoracic process suspected.
--- NOTE | 2020-10-31 08:13 | EDPHYS ---
Physician Documentation [facility] Name: Mckenna Lou Age: 20 yrs Sex: Female : 2000 Arrival Date: 10/31/2020 Time: 05:53 Bed 20 Private MD: ED Physician Justin Pollard HPI: 10/31 06:43 This 20 yrs old Female presents to ER via Ambulatory with complaints of pm1 Cough, Chest Pain, Nasal Congestion, Chest Congestion. 06:43 The patient or guardian reports cough, with no sputum. Onset: The symptoms/episode pm1 began/occurred 4 day(s) ago. Severity of symptoms: in the emergency department the symptoms are actually worse. Modifying factors: The symptoms are alleviated by nothing, the symptoms are aggravated by nothing. Associated signs and symptoms: Pertinent positives: chest pain, with cough, sore throat, Pertinent negatives: diarrhea, ear ache, fever, nausea, vomiting. The patient has not experienced similar symptoms in the past. The patient has not recently seen a physician. Onset of sore throat 4 days ago with cough and congestion 2 days ago. Patient reports chest pain with coughing. No shortness of breath, N/V/D. Daughter with onset of similar symptoms yesterday. Historical: - Allergies: 06:12 No Known Allergies; jb4 - Home Meds: 06:12 None [Active]; jb4 - PMHx: 06:12 None; jb4 - PSHx: 06:12 ; jb4 - Immunization history:: Adult Immunizations up to date. - Social history:: Smoking status: Patient denies any tobacco usage or history of. Patient/guardian denies using alcohol, street drugs. ROS: 06:43 Constitutional: Negative for fever, chills, and weight loss. pm1 06:43 Abdomen/GI: Negative for abdominal pain, nausea, vomiting, diarrhea, and constipation, Back: Negative for injury and pain, MS/Extremity: Negative for injury and deformity, Skin: Negative for injury, rash, and discoloration, Neuro: Negative for headache, weakness, numbness, tingling, and seizure. 06:43 ENT: Positive for sore throat, Negative for ear pain, difficulty swallowing, difficulty handling secretions, hoarseness. 06:43 Cardiovascular: Positive for chest pain, with cough, Negative for edema, palpitations. 06:43 Respiratory: Positive for cough, Negative for shortness of breath. 06:43 All other systems are negative. Exam: 06:43 Constitutional: This is a well developed, well nourished patient who is awake, alert, pm1 and in no acute distress. Head/Face: Normocephalic, atraumatic. 06:43 Skin: Warm, dry with normal turgor. Normal color with no rashes, no lesions, and no evidence of cellulitis. MS/ Extremity: Pulses equal, no cyanosis. Neurovascular intact. Full, normal range of motion. 06:43 Eyes: Exam is negative for acute changes, Extraocular movements: no acute changes, Conjunctiva: no acute changes, no injection. 06:43 ENT: External ear(s): are unremarkable, Ear canal(s): are normal, TM's: no acute changes, Mouth: Lips: normal, Oral mucosa: normal, pink and intact, moist, Posterior pharynx: Airway: no evidence of obstruction, Tonsils: bilaterally enlarged, with erythema, no exudate, no ulcerations, erythema, that is mild. 06:43 Cardiovascular: Exam negative for acute changes, Rate: normal, Rhythm: regular, Pulses: no pulse deficits are appreciated, Heart sounds: normal, normal S1and S2. 06:43 Respiratory: Exam negative for acute changes, respiratory distress, shortness of breath, Breath sounds: are clear throughout. 06:43 Abdomen/GI: Inspection: abdomen appears normal, Palpation: abdomen is soft and non-tender, in all quadrants. 06:43 Neuro: Exam negative for acute changes, Orientation: is normal, Mentation: is normal, Motor: is normal, moves all fours. Vital Signs: 06:10 BP 125 / 83; Pulse 113; Resp 16; Temp 98.7; Pulse Ox 100% on R/A; Weight 47.63 kg (R); jb4 Height 5 ft. 1 in. (154.94 cm) (R); Pain 9/10; 06:10 Body Mass Index 19.84 (47.63 kg, 154.94 cm) jb4 MDM: 06:37 Patient medically screened. pm1 07:07 Data reviewed: vital signs. Data interpreted: Pulse oximetry: on room air is 100 %. pm1 Interpretation: normal. 08:12 Counseling: I had a detailed discussion with the patient and/or guardian regarding: the pm1 historical points, exam findings, and any diagnostic results supporting the discharge/admit diagnosis, lab results, radiology results, the need for outpatient follow up, to return to the emergency department if symptoms worsen or persist or if there are any questions or concerns that arise at home. 08:21 ED course: [place] reviewed. pm1 08:22 ED course: Patient reports cough has resolved with medication given in the ER and chest pm1 pain has resolved since she is no longer coughing. Would like to go with something similar, therefore will give guaifenesin with codeine. 10/31 06:14 Order name: Flu jb4 10/31 06:14 Order name: Influenza Screen (A ; Complete Time: 07:22 EDMS 10/31 06:42 Order name: Strep; Complete Time: 08:11 pm1 10/31 07:25 Order name: Urine Dipstick-Ancillary; Complete Time: 07:44 EDMS 10/31 08:00 Order name: Throat Culture EDMS 10/31 06:43 Order name: Chest Single View XRAY; Complete Time: 07:44 pm1 10/31 06:43 Order name: Droplet/Contact Precautions; Complete Time: 06:46 pm1 10/31 06:43 Order name: Labs collected and sent; Complete Time: 06:46 pm1 10/31 06:43 Order name: Urine Dipstick-Ancillary (obtain specimen); Complete Time: 07:36 pm1 10/31 06:43 Order name: Urine Test (obtain specimen); Complete Time: 07:36 pm1 10/31 08:07 Order name: SARS-COV-2 RT PCR; Complete Time: 08:11 EDMS Administered Medications: 06:59 Drug: Tussionex Pennkinetic ER (chlorpheniramine-hydrocodone) Suspension 5 ml Route: PO;ea Disposition Summary: 10/31/20 08:12 Discharge Ordered Location: Home pm1 Problem: new pm1 Symptoms: have improved pm1 Condition: Stable pm1 Diagnosis - Acute upper respiratory infection, unspecified pm1 Followup: pm1 - With: Emergency Department - When: As needed - Reason: Worsening of condition Followup: pm1 - With: Private Physician - When: 2 - 3 days - Reason: Recheck today's complaints, Continuance of care, Re-evaluation by your physician Discharge Instructions: - Discharge Summary Sheet pm1 - Antibiotic Resistance pm1 - Upper Respiratory Infection, Adult pm1 Forms: - Medication Reconciliation Form pm1 - Thank You Letter pm1 - Antibiotic Education pm1 - Prescription Opioid Use pm1 Prescriptions: - Guaifenesin AC 10-100 mg/5 mL Oral Liquid - take 10 milliliters by ORAL route every 4 hours As needed; 240 milliliter; pm1 Refills: 0, Product Selection Permitted Signatures: Dispatcher [employer] EDMS Michael Parr NP LOAN OPERATIONS MANAGER pm1 Diego Duarte, RN RN jb4 Nithya Cardona RN RN ea Corrections: (The following items were deleted from the chart) 07:08 06:14 CORONAVIRUS+[email or web address] ordered. EDIA EDMS
--- NOTE | 2020-10-31 08:13 | ER ---
Nurse's Notes [facility] Name: Mckenna Lou Age: 20 yrs Sex: Female : 2000 Arrival Date: 10/31/2020 Time: 05:53 Bed 20 Private MD: Diagnosis: Acute upper respiratory infection, unspecified Presentation: 10/31 06:10 Chief complaint: Patient states: I have had a cough for the past 2 days. I started jb4 having a sharp chest pain about midday yesterday. My daughter is now coughing and I just wanted to know what I have incase I gave it to her. Coronavirus screen: Client denies travel out of the [place] in the last 14 days. Client presents with at least one sign or symptom that may indicate coronavirus-19. Standard/surgical mask placed on the client. Provider contacted for isolation considerations. Ebola Screen: No symptoms or risks identified at this time. Initial Sepsis Screen: Does the patient meet any 2 criteria? HR > 90 bpm. Yes Does the patient have a suspected source of infection? No. Patient's initial sepsis screen is negative. Risk Assessment: Do you want to hurt yourself or someone else? Patient reports no desire to harm self or others. Onset of symptoms was October 31, 2020. Transition of care: patient was not received from another setting of care. 06:10 Method Of Arrival: Ambulatory jb4 06:10 Acuity: VICKY 3 jb4 Historical: - Allergies: 06:12 No Known Allergies; jb4 - Home Meds: 06:12 None [Active]; jb4 - PMHx: 06:12 None; jb4 - PSHx: 06:12 ; jb4 - Immunization history:: Adult Immunizations up to date. - Social history:: Smoking status: Patient denies any tobacco usage or history of. Patient/guardian denies using alcohol, street drugs. Screenin:36 Abuse screen: Denies threats or abuse. Nutritional screening: No deficits noted. ea Tuberculosis screening: No symptoms or risk factors identified. Fall Risk None identified. Assessment: 06:35 General: Appears in no apparent distress. Neuro: Level of Consciousness is awake, ea alert, obeys commands, Oriented to person, place, time. Respiratory: Airway is patent Respiratory effort is even, unlabored, Respiratory pattern is regular, symmetrical. Derm: Skin is pink, warm \T\ dry. Vital Signs: 06:10 BP 125 / 83; Pulse 113; Resp 16; Temp 98.7; Pulse Ox 100% on R/A; Weight 47.63 kg (R); jb4 Height 5 ft. 1 in. (154.94 cm) (R); Pain 9/10; 06:10 Body Mass Index 19.84 (47.63 kg, 154.94 cm) jb4 ED Course: 05:53 Patient arrived in ED. cf2 06:08 Michael Parr NP is PHCP. pm1 06:08 Justin Pollard MD is Attending Physician. pm1 06:10 Diego Duarte, RN is Primary Nurse. jb4 06:10 Arm band placed on right wrist. jb4 06:12 Triage completed. jb4 06:36 Patient has correct armband on for positive identification. Bed in low position. Call ea light in reach. Adult w/ patient. Pulse ox on. NIBP on. 06:39 Patient maintains SpO2 saturation greater than 95% on room air. ea 06:58 Chest Single View XRAY In Process Unspecified. EDMS 07:39 Primary Nurse role handed off by Diego Duarte, [place] tr6 07:39 Marylin Aparicio, [place] is Primary Nurse. tr6 Administered Medications: 06:59 Drug: Tussionex Pennkinetic ER (chlorpheniramine-hydrocodone) Suspension 5 ml Route: PO;ea Outcome: 08:12 Discharge ordered by . pm1 08:56 Patient left the ED. tr6 Signatures: Dispatcher [employer] EDMS Michael Parr NP MILK VENDOR pm1 Diego Duarte, RN [place] jb4 Nithya Cardona RN RN ea Frazier, [place] cf2 Marylin Aparicio, [place] HENRIQUEZ tr6
[2020-10-31 09:07] VITALS: BP 125/83; TEMP 98.7; O2SAT 100
== END 2020-10-31 08:56 | disposition home or self-care (01) ==
LOC: ER 05:51
DX: J06.9 Acute upper respiratory infection, unspecified (principal); Z20.822 Contact with and (suspected) exposure to COVID-19
CPT/HCPCS: 87070; 87081; 81003; 87804 ×2; 71045; 99284; U0003

== ENCOUNTER 2022-05-21 20:54 | Emergency (ER) | payer OTHER ==
--- OUTSIDE RECORDS SUMMARY | 2022-05-21 20:57 | XMS REPORT | Continuity of Care Document ---
:2000 Author Organization [facility] t Address [address] [place] [address] Care Team Providers Name Role Phone Basil Davis MD Primary Care Physician BRENDA BEARDEN Attending Clinician Unavailable Brenda Morley Attending Clinician Unknown, Attending Attending Clinician Unavailable BASIL DAVIS Attending Clinician Unavailable LEBRON HENSLEY Attending Clinician Unavailable Basil Davis MD Attending Clinician Stephanie Dean Attending Clinician Matthew Luna Attending Clinician STEPHANIE HOWARD Attending Clinician Unavailable 2, [facility] Attending Clinician Unavailable Rachna Rubio NP Attending Clinician Vaccine, [facility] Attending Clinician Unavailable RACHNA RUBIO Attending Clinician Unavailable Lebron Hensley MD Attending Clinician Licha Ron DO Attending Clinician LICHA RON Attending Clinician Unavailable Doctor Unassigned, [place] Attending Clinician Unavailable Wilber Swanson DO Attending Clinician ANGELA MAHONEY Attending Clinician Unavailable Payers Payer Name Policy Type Policy Number Effective Date Expiration Date [facility] [id number] 2018 [facility] [place] ST[place] 00:00:00 Problems Condition Condition Condition Status Onset Resolution Last Treating Co mments Source Name Details Category Date Date Treatment Clinician Date Need for Need for Disease Active Unive rs prophylact prophylact 8-19 it y of ic ic 00:00: [place] vaccinatio vaccinatio 00 Me dical n against n against Bran ch human human papillomav papillomav irus (HPV) irus (HPV) types 6, types 6, 11, 16, 11, 16, and 18 and 18 ADHD ADHD Disease Active Univers (attention (attention 9-10 it y of deficit deficit 00:00: [place] hyperactiv hyperactiv 00 Me dical ity ity Branch disorder), disorder), combined combined type type PTSD PTSD Disease Active Univers (post-trau (post-trau 9-10 it y of matic matic 00:00: [place] stress stress 00 Medical disorder) disorder) Bran ch Primary Primary Disease Active Univers insomnia insomnia 9-10 ity of 00:00: Medical Branch Mild Mild Disease Active Univers depression depression 9-10 it y of 00:00: [place] Medical Branch Anxiety Anxiety Disease Active Univers 9-10 ity of 00:00: [place] 00 Medical Branch Screening Screening Disease Active Uni vers for for 9-10 ity of diabetes diabetes 00:00: [place] mellitus mellitus 00 Medica l (DM) (DM) Branch Suicide Suicide Disease Active Univers attempt attempt 9-10 ity of 00:00: [place] 00 Medical Branch Insomnia, Insomnia, Disease Active Uni vers unspecifie unspecifie 9-10 it y of d type d type 00:00: [place] 00 Medical Branch Allergies, Adverse Reactions, Alerts Allergy Allergy Status Severity Reaction(s) Onset Inactive Treating Comm ents Source Name Type Date Date Clinician NO KNOWN Drug Active Univers ALLERGIE Class ity of S [place] [facility] Social History Social Habit Start Date Stop Date Quantity Comments Source Alcohol intake 2022-04-06 2022-04-06 Current University of 00:00:00 00:00:00 non-drinker of [place] [facility] alcohol (finding) Branch Exposure to 2022-03-26 2022-04-05 Not sure [facility] SARS-CoV-2 00:00:00 21:50:00 [place] Medical (event) Branch Tobacco use and 2021-12-09 2021-12-09 Smokeless tobacco Un iversity of exposure 00:00:00 00:00:[address] non-[address] [facility] Sex Assigned At [birth year] Universit y of 00:00:00 00:00:00 [facility] Smoking Status Start Date Stop Date Source Never smoked tobacco [facility] Medications Ordered Filled Start Stop Current Ordering Indication Dosage Frequency Signature Comments Components Source Medication Medication Date Date Medication? Clinician (SIG) Name Name ondansetron 2021-04 Yes [id number] 4mg Take 1 Univers 4 mg 2-22 tablet by ity of disintegrat 00:00: mouth [place] ing tablet 00 every 8 Medica l (eight) Branch hours as needed for Nausea and Vomiting (N/V). ondansetron 2021-04 Yes [id number] 4mg Take 1 Univers 4 mg 2-22 tablet by ity of disintegrat 00:00: mouth [place] ing tablet 00 every 8 Medica l (eight) Branch hours as needed for Nausea and Vomiting (N/V). traZODone 2021-04 Yes [id number] 50mg Take 1 Uni vers 50 mg 0-18 tablet by ity of tablet 00:00: mouth at [place] [address] bedtime. Medical Branch traZODone 2021-04 Yes [id number] 50mg Take 1 Uni vers 50 mg 0-18 tablet by ity of tablet 00:00: mouth at [place] [address] bedtime. Medical Branch traZODone 2021-04 Yes [id number] 50mg Take 1 Uni vers 50 mg 0-18 tablet by ity of tablet 00:00: mouth at [place] [address] bedtime. Medical Branch dextroamphe Yes [id number] 5mg Take 0.5 Univers tamine-amph 9-20 tablets by it y of etamine 00:00: mouth in [place] (ADDERALL) 00 the Medical 10 mg morning. Branch tablet traZODone Yes [id number] 50mg Take 1 Uni vers 50 mg 9-20 tablet by ity of tablet 00:00: mouth at [place] [address] bedtime. Medical Branch QUEtiapine Yes [id number] 25mg Take 1 Un zenaida 25 mg 9-20 tablet by ity of tablet 00:00: mouth at [place] [address] bedtime. Medical Branch dextroamphe 2022-0 Yes [id number] 5mg Take 0.5 Univers tamine-amph 9-20 tablets by it y of etamine 00:00: mouth in [place] (ADDERALL) 00 the Medical 10 mg morning. Branch tablet QUEtiapine 2021-0 Yes [id number] 25mg Take 1 Un zenaida 25 mg 9-20 tablet by ity of tablet 00:00: mouth at [place] 00 bedtime. Medical Branch dextroamphe 2021-0 Yes [id number] 5mg Take 0.5 Univers tamine-amph 9-20 tablets by it y of etamine 00:00: mouth in [place] (ADDERALL) 00 the Medical 10 mg morning. Branch tablet QUEtiapine 2021-0 Yes [id number] 25mg Take 1 Un zenaida 25 mg 9-20 tablet by ity of tablet 00:00: mouth at [place] 00 bedtime. Medical Branch dextroamphe 0 Yes [id number] 5mg Take 0.5 Univers tamine-amph 9-20 tablets by it y of etamine 00:00: mouth in [place] (ADDERALL) 00 the Medical 10 mg morning. Branch tablet QUEtiapine 0 Yes [id number] 25mg Take 1 Un zenaida 25 mg 9-20 tablet by ity of tablet 00:00: mouth at [place] 00 bedtime. Medical Branch dextroamphe 2021-0 Yes [id number] 5mg Take 0.5 Univers tamine-amph 9-20 tablets by it y of etamine 00:00: mouth in [place] (ADDERALL) 00 the Medical 10 mg morning. Branch tablet QUEtiapine 2021-0 Yes [id number] 25mg Take 1 Un zenaida 25 mg 9-20 tablet by ity of tablet 00:00: mouth at [place] 00 bedtime. Medical Branch traZODone 2021-0 2021- No [id number] 50mg Take 1 Un zenaida 50 mg 9-20 10-18 tablet by ity of tablet 00:00: 00:00 mouth at [place] 00 :00 bedtime. Medical Branch fluconazole 2021-0 Yes [id number] 200mg Take 1 Univers (DIFLUCAN) 8-28 tablet by ity of 200 mg 00:00: mouth in [place] tablet 00 the Medical morning. Branch fluconazole 2021-0 2021- No [id number] 200mg Take 1 Univers (DIFLUCAN) 8-28 09-20 tablet by ity of 200 mg 00:00: 00:00 mouth in [place] tablet 00 :00 the Medical morning. [place] metroNIDAZO 2021- No [id number] 500mg Take 1 Univers LE (FLAGYL) 12-11 tablet by it y of 500 mg 00:00: 04:59 mouth [place] tablet 00 :00 every 12 Medical (twelve) Branch hours for 7 days. Nitrofurant 2021- No [id number] 100mg Take 1 Univers oin&Nit. 12-09 capsule by ity of Macrocryst 00:00: 04:59 [place] (MACROBID) 00 :00 the Medical 100 mg morning Branch capsule and 1 capsule in the evening. Do all this for 7 days. dextroamphe Yes [id number] 5mg Take 1 U nivers tamine-amph 8-20 tablet by ity of etamine 00:00: mouth in [place] (ADDERALL) 00 the Medical 5 mg tablet morning. [facility] QUEtiapine Yes [id number] 25mg Take 1 Un zenaida 25 mg 8-20 tablet by ity of tablet 00:00: mouth in [place] 00 the Medical morning. [place] dextroamphe 2021- No [id number] 5mg Take 1 Univers tamine-amph 8-01-03 tablet by it y of etamine 00:00: 00:00 mouth in [place] (ADDERALL) 00 :00 the Medical 5 mg tablet morning. [facility] QUEtiapine 2021- No [id number] 25mg Take 1 U nivers 25 mg 8-20 -20 tablet by ity of tablet 00:00: 00:00 mouth in [place] 00 :00 the Medical morning. Branch NUVARING Yes [id number] 1{each} Insert 1 Univers 0.12-0.015 5-04 Each into ity of mg/24 hr 00:00: vagina [place] vaginal 00 once every Medica l insert month. Branch Insert vaginally and leave in place for 3 consecutiv e weeks, then remove for 1 week. NUVARING Yes [id number] 1{each} Insert 1 Univers 0.12-0.015 5-04 Each into ity of mg/24 hr 00:00: vagina [place] vaginal 00 once every Medica l insert month. Branch Insert vaginally and leave in place for 3 consecutiv e weeks, then remove for 1 week. NUVARING Yes [id number] 1{each} Insert 1 Univers 0.12-0.015 5-04 Each into ity of mg/24 hr 00:00: vagina [place] vaginal 00 once every Medica l insert month. Branch Insert vaginally and leave in place for 3 consecutiv e weeks, then remove for 1 week. NUVARING Yes [id number] 1{each} Insert 1 Univers 0.12-0.015 5-04 Each into ity of mg/24 hr 00:00: vagina [place] vaginal 00 once every Medica l insert month. Branch Insert vaginally and leave in place for 3 consecutiv e weeks, then remove for 1 week. NUVARING Yes [id number] 1{each} Insert 1 Univers 0.12-0.015 5-04 Each into ity of mg/24 hr 00:00: vagina [place] vaginal 00 once every Medica l insert month. Branch Insert vaginally and leave in place for 3 consecutiv e weeks, then remove for 1 week. NUVARING Yes [id number] 1{each} Insert 1 Univers 0.12-0.015 5-04 Each into ity of mg/24 hr 00:00: vagina [place] vaginal 00 once every Medica l insert month. Branch Insert vaginally and leave in place for 3 consecutiv e weeks, then remove for 1 week. Immunizations Ordered Filled Immunization Date Status Comments [facility] e Immunization Name Name HPV9 2021-12-02 Completed University of 00:00:00 [facility] SARS-COV-2 COVID-19 2021-12-02 Completed Unive rsity of MODERNA 0.25ML 00:00:00 [place] Medi isaac BOOSTER VACCINE Branch HPV9 2021-12-02 Completed University of 00:00:00 [facility] SARS-COV-2 COVID-19 2021-12-02 Completed Unive rsity of MODERNA 0.25ML 00:00:00 [place] Medi isaac BOOSTER VACCINE Branch HPV9 2021-12-02 Completed University of 00:00:00 [facility] SARS-COV-2 COVID-19 2021-12-02 Completed Unive rsity of MODERNA 0.25ML 00:00:00 [place] Medi isaac BOOSTER VACCINE Branch HPV9 2021-12-02 Completed University of 00:00:00 [place] [facility] SARS-COV-2 COVID-19 2021-12-02 Completed Unive rsity of MODERNA 0.25ML 00:00:00 [place] Medi isaac BOOSTER VACCINE Branch HPV9 2021-12-02 Completed University of 00:00:00 [place] [facility] SARS-COV-2 COVID-19 2021-12-02 Completed Unive rsity of MODERNA 0.25ML 00:00:00 [place] Medi isaac BOOSTER VACCINE Branch HPV9 2021-12-02 Completed University of 00:00:00 [place] [facility] SARS-COV-2 COVID-19 2021-12-02 Completed Unive rsity of MODERNA 0.25ML 00:00:00 [place] Medi isaac BOOSTER VACCINE Branch SARS-COV-2 COVID-19 2020-12-23 Completed Unive rsity of MODERNA 12+ YRS 00:00:00 [place] Med ical VACCINE Branch SARS-COV-2 COVID-19 2020-12-23 Completed Unive rsity of MODERNA 12+ YRS 00:00:00 [place] Med ical VACCINE Branch SARS-COV-2 COVID-19 2020-12-23 Completed Unive rsity of MODERNA 12+ YRS 00:00:00 [place] Med ical VACCINE Branch SARS-COV-2 COVID-19 2020-12-23 Completed Unive rsity of MODERNA 12+ YRS 00:00:00 [place] Med ical VACCINE Branch SARS-COV-2 COVID-19 2020-12-23 Completed Unive rsity of MODERNA 12+ YRS 00:00:00 [place] Med ical VACCINE Branch SARS-COV-2 COVID-19 2020-12-23 Completed Unive rsity of MODERNA 12+ YRS 00:00:00 [place] Med ical VACCINE Branch SARS-COV-2 COVID-19 2020-11-25 Completed Unive rsity of MODERNA 12+ YRS 00:00:00 [place] Med ical VACCINE Branch SARS-COV-2 COVID-19 2020-11-25 Completed Unive rsity of MODERNA 12+ YRS 00:00:00 [place] Med ical VACCINE Branch SARS-COV-2 COVID-19 2020-11-25 Completed Unive rsity of MODERNA 12+ YRS 00:00:00 [facility] ical VACCINE Branch SARS-COV-2 COVID-19 2020-11-25 Completed Unive rsity of MODERNA 12+ YRS 00:00:00 [facility] ical VACCINE Branch SARS-COV-2 COVID-19 2020-11-25 Completed Unive rsity of MODERNA 12+ YRS 00:00:00 [facility] [place] VACCINE Branch SARS-COV-2 COVID-19 2020-11-25 Completed Unive rsity of MODERNA 12+ YRS 00:00:00 [facility] [place] VACCINE Branch TDAP (ADACEL) 2018-10-15 Completed University of VACCINE 00:00:00 [facility] TDAP (ADACEL) 2018-10-15 Completed University of VACCINE 00:00:00 [facility] TDAP (ADACEL) 2018-10-15 Completed University of VACCINE 00:00:00 [facility] TDAP (ADACEL) 2018-10-15 Completed University of VACCINE 00:00:00 [facility] TDAP (ADACEL) 2018-10-15 Completed University of VACCINE 00:00:00 [facility] TDAP (ADACEL) 2018-10-15 Completed University of VACCINE 00:00:00 [facility] Influenza Virus 2018-06-12 Completed Universit y of Vaccine Quad .5 mL 00:00:00 [facility] 6+ MO Branch Influenza Virus 2018-06-12 Completed Universit y of Vaccine [place] .5 mL 00:00:00 [facility] 6+ MO Branch Influenza Virus 2018-06-12 Completed Universit y of Vaccine [place] .5 mL 00:00:[address] [facility] IM 6+ MO Branch Influenza Virus 2018-06-12 Completed Universit y of Vaccine [place] .5 mL 00:00:[address] [facility] IM 6+ MO Branch Influenza Virus 2018-06-12 Completed Universit y of Vaccine [place] .5 mL 00:00:[address] [facility] IM 6+ MO Branch Influenza Virus 2018-06-12 Completed Universit y of Vaccine [place] .5 mL 00:00:00 [facility] 6+ MO Branch Vital Signs Vital Name Observation Time Observation Value Comments Source Systolic blood 2022-04-06 16:23:00 104 mm[Hg] Univer sity of pressure [facility] Diastolic blood 2022-04-06 16:23:00 58 mm[Hg] Unive rsity of pressure [facility] Heart rate 2022-04-06 16:23:00 107 /min [facility] Body temperature 2022-04-06 16:23:00 37.06 Kimber [facility] Respiratory rate 2022-04-06 16:23:00 16 /min [facility] Body height 2022-04-06 16:23:00 154.9 cm [facility] Body weight 2022-04-06 16:23:[address] [facility] 2022-04-06 16:23:00 20.97 kg/m2 [facility] Oxygen saturation in 2022-04-06 16:23:00 99 /min [facility] Arterial blood by [facility] [place] [facility] Pulse oximetry [place] Procedures Procedure Date / Time Performed Performing Clinician Sourc e POCT MOLECULAR FLU 2022-04-06 16:31:00 Unknown, Attending Aat brito [facility] POCT MOLECULAR STREP 2022-04-06 16:29:00 Unknown, Attending [facility] Encounters Start End Encounter Admission Attending Care Care Encounter Source Date/Time Date/Time Type Type Clinicians Facility Department ID 2022-04-06 2022-04-06 Outpatient R MONISHA [facility] [id number] [facility] 09:20:00 10:51:30 [address]ENDA herzog o f [facility] 2022-04-06 2022-04-06 Urgent Brenda Bearden [facility] 1.2.840. [id number] [facility] 09:20:00 09:40:00 Care Unknown, Attending HEALTH [id number] ity of [place] 4.2.7.2.686 [place] EULOGIO?BLEA [id number] [address] MEDICAL OFFICE BUILDING 2022-04-06 2022-04-06 Letter Monisha [facility] [id number] [facility] 00:00:00 00:00:00 (Out) Brenda [facility] [id number] i ty of [place] [id number] [place] EULOGIO?BLEA [id number] [address] MEDICAL OFFICE BUILDING 2022-03-07 2022-03-07 Outpatient R RYAN [facility] [id number] Univers 14:40:00 14:40:00 BASIL rosenda [facility] 2022-02-20 2022-02-20 Outpatient R LEBRON HENSLEY [facility] [id number] Univers 08:30:00 08:30:00 ity [facility] 2022-01-27 2022-01-27 Outpatient R RYAN [facility] [id number] Univers 15:20:00 15:20:00 BASIL rosenda [facility] 2022-01-26 2022-01-26 [id number] Univers 10:40:00 10:40:00 BASIL slime [facility] 2022-01-26 2022-01-26 [facility] [id number] Univers 00:00:00 00:00:00 Basil [place] [id number] i ty [facility] [id number] PROF[place] [id number] Hi dical NAL [address] [place] [address] 2022-01-03 2022-01-03 Outpatient R RYAN [facility] [id number] Univers 08:00:00 09:15:41 BASIL slime [facility] 2022-01-03 2022-01-03 [facility] 1.2.840.114 [id number] Univers 08:00:00 09:15:41 ne Visit Basil [place] [id number] ity [facility] [id number] [place] [phone] Hi dical NAL [address] [place] [address] 2022-01-03 2022-01-03 Outpatient R RYAN [facility] [id number] Univers 08:00:00 08:00:00 BASIL herzog [facility] 2022-01-03 2022-01-03 Telephone [facility] .2.840.114 [id number] Univers 00:00:00 00:00:00 Basil [place] [id number] i ty [facility] [id number] [id number] Me dical NAL [address] [facility] 2021-12-12 2021-12-12 Patient Ryan [facility] 1.2.840.114 [id number] Univers 00:00:00 00:00:00 Secure Msg Basil [facility] [id number] ity [facility] [id number] [id number] Me dical NAL [address] [facility] 2021-12-11 2021-12-11 [place] Lee [facility] [id number] Univers 00:00:00 00:00:00 [facility] [id number] it y of [place] 4.2.7.2.686 [place] EULOGIO?BLEA [phone] [facility] [address] [facility] OFFICE [facility] 2021-12-09 2021-12-09 Urgent IldefonsonobleMatthew [facility] 1.2.840.114 [id number] Univers 19:40:00 20:00:00 [facility] [id number] ity of [place] 4.2.7.2.686 [place] EULOIGO?BLEA [id number] [address] OFFICE [facility] 2021-12-09 2021-12-09 Outpatient R LEE [facility] [id number] Univers 19:40:00 19:40:[address] 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 [facility] 1.2.840.114 [id number] Univers 16:15:00 16:30:00 Visit Rachna Rubio 350.1.13.1 0 ity [facility] 4.2.7.2.686 [place] [id number] Hi dical NAL [address] [facility] 2021-12-02 2021-12-02 Imm/Inj Vaccine, Adc Family Medicine [facility] 1.2.840.114 [id number] Univers 13:00:00 16:13:48 Visit Rachna Rubio 350.1.13.1 0 ity of [place] 4.2.7.2.686 [place] [id number] [facility] 2021-12-02 2021-12-02 Outpatient R RACHNA RUBIO [facility] [id number] Univers 14:30:00 16:11:03 [address] ity of [facility] 2021-12-02 2021-12-02 Office Basil Davis [facility] 1.2.840.1 [id number] Univers 14:30:00 16:11:03 Visit Rachna Rubio 350.1.13.1 0 ity of [place] 4.2.7.2.686 [place] [id number] [facility] 0[address] [facility] 2021-12-02 2021-12-02 Refill Lebron Hensley [facility] [id number] Univers 00:00:00 00:00:00 Armond [place] 350.1.13.10 i ty of [place] 4.2.7.2.[place] [id number] [facility] [address] [facility] 2021-10-25 2021-10-25 Emergency [facility] [id number] Univers 08:14:00 08:45:00 Licha [place] 350.1.13.10 i ty of [place] 4.2.7.2.[place] [facility] [id number] [facility] 084 [place] 2021-10-25 2021-10-25 Emergency X [facility] ERT [id number] Univers 08:14:00 08:45:[address] [facility] 2021-10-25 2021-10-25 Orders Doctor PEACE 1.2.840.114 [id number] Univers 00:00:00 00:00:00 Only Unassigned, ARIADNE 350.1.13.10 ity of [place] [facility] 4.2.7.2.686 [place] as [id number] [facility] 009 [place] 2021-08-17 2021-08-17 Office Lebron Hensley [facility] [id number] Univers 13:15:00 13:59:35 Visit Armond [place] 350.1.13.10 i ty of [place] 4.2.7.2.[place] [phone] [address] 2021-08-17 2021-08-17 Outpatient R SHELLIE [facility] [id number] Univers 13:15:00 13:59:35 ity [facility] 2021-08-17 2021-08-17 Outpatient R SHELLIE [facility] [id number] Univers 13:15:00 13:15:00 ity [facility] 2021-08-17 2021-08-17 Orders Doctor PEACE 1.2.840.114 [id number] Univers 00:00:00 00:00:00 Only Unassigned, ARIADNE 350.1.13.10 ity of [place] [facility] 4.2.7.2.686 [place] as [id number] [address] 2021-07-08 2021-07-08 Telephone Shellie [facility] 1.2.840.114 [id number] Univers 00:00:00 00:00:00 Armond [place] 350.1.13.10 i ty of [place] 4.2.7.2.[place] [id number] [address] 2020-07-06 2020-07-06 Patient Sky [facility] 1.2.840.114 [id number] 00:00:00 00:00:00 Outreach Wilber [facility] 350.1.13.10 [facility] 4.2.7.2.686 [place] [phone] [id number] 2020-03-17 2020-03-17 Outpatient R RYAN [facility] [id number] Univers 13:40:00 13:40:00 BASIL herzog [facility] 2020-02-17 2020-02-17 Refill Ryan [facility] 1.2.840.114 [id number] 00:00:00 00:00:00 Basil Bledsoe 350.1.13.10 [place] 4.2.7.2.686 Professio [id number] [address] 2020-01-20 2020-01-20 Refill [facility] 1.2.840.114 [id number] 00:00:00 00:00:00 Basil Bledsoe 350.1.13.10 [place] 4.2.7.2.686 Professio [id number] [address] 2020-01-17 2020-01-17 Refill [facility] 1.2.840.114 [id number] 00:00:00 00:00:00 Basil Bledsoe 350.1.13.10 [place] 4.2.7.2.686 Professio [id number] [address] 2020-01-05 2020-01-05 Telephone [facility] 1.2.840.114 [id number] 00:00:00 00:00:00 Basil Viri 350.1.13.10 [place] 4.2.7.2.686 Professio [phone] [address] 2019-12-29 2019-12-29 Refill [facility] 1.2.840.114 [id number] 00:00:00 00:00:00 Basil Viri 350.1.13.10 [place] 4.2.7.2.686 Professio [id number] [address] 2019-12-25 2019-12-25 Office [facility] 1.2.840.114 [id number] 09:51:03 10:55:51 Visit Basil Keaton 350.1.13.10 [place] 4.2.7.2.686 Professio [phone] [address] 2019-12-25 2019-12-25 Outpatient R RYAN [facility] [id number] Univers 10:00:00 10:00:00 BASIL herzog [facility] 2019-09-24 2019-09-24 Outpatient R ANGELA MAHONEY [facility] [id number] Univers 14:40:00 14:40:00 [facility] Results Test Description Test Time Test Comments Results Result Comments Source POCT MOLECULAR FLU 2022-04-06 16:42:50 Test Item Value Reference Range Interpretation Comme nts POCT Molecular FluA (test code = 30612-6) Negative Negative POCT Molecular FluB (test code = 34862-2) Negative Negative Lab Interpretation (test code = 91589-6) [facility]05[facility] 16:37:24 Test Item Value Reference Range Interpretation Comments POCT Molecular Strep (test code = Negative Negative 60681-9) Lab Interpretation (test code = Normal 15019-4) [facility]
[2022-05-21 21:28] LABS: Hematocrit 49.2 % (36.0-45.0); Lymphocytes % 45.2 % (15.3-44.8); MCV 86.2 fL (80-100); MPV 8.3 fL (7.6-11.3); RBC Red Blood Cell Count 5.71 M/uL (3.86-4.86)
[2022-05-21 21:32] LABS: Protime INR 1.06
[2022-05-21] MEDS ORDERED: NA CHLORIDE 0.9% 1,000 ML ONE (21:37)
[2022-05-21] MEDS ORDERED: FAMOTIDINE 20 MG/2 ML VIAL IV ONE (21:39)
[2022-05-21] MEDS ORDERED: METHYLPREDNISOLONE 125 MG INJ ONE (21:39)
[2022-05-21] MEDS ORDERED: DIPHENHYDRAMINE 50 MG/ML VIAL ONE (21:40)
[2022-05-21 21:46] LABS: Albumin 4.4 g/dL (3.4-5.0); Bilirubin Direct 0.2 mg/dL (0-0.2); Bilirubin Total 0.9 mg/dL (0.2-1.0); Potassium 3.3 mmol/L (3.5-5.1); Protein, Total 8.6 g/dL (6.4-8.2)
[2022-05-22] MEDS ORDERED: ONDANSETRON 4 MG/2 ML VIAL ONE (00:20)
[2022-05-22] MEDS ORDERED: POTASSIUM 25 MEQ EFFERV TAB ONE (00:21)
--- NOTE | 2022-05-22 01:06 | EDPHYS ---
Physician Documentation [facility] Name: Mckenna Lou Age: 21 yrs Sex: Female : 2000 Arrival Date: 05/21/2022 Time: 20:55 Bed 3 Private MD: ED Physician Ayush Mari HPI: 05/21 22:27 This 21 yrs old Female presents to ER via Wheelchair with complaints of luis Possible Overdose. 22:27 The patient presents to the emergency department with a known poisoning, took tylenol luis #3 #30. Associated signs and symptoms: Pertinent positives: depression, tearfulness. Severity of symptoms: At their worst the symptoms were mild moderate in the emergency department the symptoms are unchanged. The patient has experienced a previous episode, many years ago. Historical: - Allergies: 21:19 No Known Allergies; kr3 - PMHx: 21:19 depression; kr3 - PSHx: 21:19 ; kr3 - Immunization history:: Adult Immunizations not up to date. - Social history:: Smoking status: . ROS: 22:28 Constitutional: Negative for fever, chills, and weight loss, Eyes: Negative for injury, luis pain, redness, and discharge, ENT: Negative for injury, pain, and discharge, Neck: Negative for injury, pain, and swelling, Cardiovascular: Negative for chest pain, palpitations, and edema, Respiratory: Negative for shortness of breath, cough, wheezing, and pleuritic chest pain, Abdomen/GI: Negative for abdominal pain, nausea, vomiting, diarrhea, and constipation, Back: Negative for injury and pain, : Negative for injury, bleeding, discharge, and swelling, MS/Extremity: Negative for injury and deformity, Allergy/Immunology: Negative for hives, rash, and allergies, Endocrine: Negative for neck swelling, polydipsia, polyuria, polyphagia, and marked weight changes. 22:28 Skin: Positive for rash, diffusely. 22:28 Psych: Positive for depression, suicide gesture. Exam: 22:28 Constitutional: This is a well developed, well nourished patient who is awake, alert, luis and in no acute distress. Head/Face: Normocephalic, atraumatic. Eyes: Pupils equal round and reactive to light, extra-ocular motions intact. Lids and lashes normal. Conjunctiva and sclera are non-icteric and not injected. Cornea within normal limits. Periorbital areas with no swelling, redness, or edema. ENT: Nares patent. No nasal discharge, no septal abnormalities noted. Tympanic membranes are normal and external auditory canals are clear. Oropharynx with no redness, swelling, or masses, exudates, or evidence of obstruction, uvula midline. Mucous membranes moist. Neck: Trachea midline, no thyromegaly or masses palpated, and no cervical lymphadenopathy. Supple, full range of motion without nuchal rigidity, or vertebral point tenderness. No Meningismus. Chest/axilla: Normal chest wall appearance and motion. Nontender with no deformity. No lesions are appreciated. Cardiovascular: Regular rate and rhythm with a normal S1 and S2. No gallops, murmurs, or rubs. Normal PMI, no JVD. No pulse deficits. Respiratory: Lungs have equal breath sounds bilaterally, clear to auscultation and percussion. No rales, rhonchi or wheezes noted. No increased work of breathing, no retractions or nasal flaring. Abdomen/GI: Soft, non-tender, with normal bowel sounds. No distension or tympany. No guarding or rebound. No evidence of tenderness throughout. Back: No spinal tenderness. No costovertebral tenderness. Full range of motion. Skin: Warm, dry with normal turgor. Normal color with no rashes, no lesions, and no evidence of cellulitis. MS/ Extremity: Pulses equal, no cyanosis. Neurovascular intact. Full, normal range of motion. Neuro: Awake and alert, GCS 15, oriented to person, place, time, and situation. Cranial nerves II-XII grossly intact. Motor strength 5/5 in all extremities. Sensory grossly intact. Cerebellar exam normal. Normal gait. 22:28 Psych: Behavior/mood is depressed, Affect is flat, Oriented to person, place, time, Patient has no thoughts/intents to harm self or others. Judgement / Insight is normal. Memory is normal. Delusions/hallucinations are not present. 05/22 01:09 ECG was reviewed by the Attending Physician. [facility] Vital Signs: 05/21 21:14 Weight 47.63 kg; Height 5 ft. 1 in. (154.94 cm); kr3 21:42 BP 115 / 68; Pulse 87; Resp 22; Temp 97.8; Pulse Ox 98% on R/A; zm 21:58 BP 148 / 105; Pulse 83; Resp 20 S; Pulse Ox 99% on R/A; as6 23:00 BP 126 / 79; Pulse 103; Resp 19 S; Pulse Ox 100% on R/A; as6 02 00:00 BP 122 / 77; Pulse 85; Resp 17 S; Pulse Ox 97% on R/A; as6 00:59 BP 125 / 80; Pulse 87; Resp 17 S; Pulse Ox 97% on R/A; as6 02:00 BP 120 / 81; Pulse 90; Resp 17 S; Pulse Ox 97% on R/A; as6 03:00 BP 112 / 64; Pulse 81; Resp 16 S; Pulse Ox 96% on R/A; as6 04:00 BP 129 / 78; Pulse 88; Resp 15 S; Pulse Ox 99% on R/A; as6 05:00 BP 132 / 83; Pulse 82; Resp 17 S; Pulse Ox 97% on R/A; as6 05/21 21:14 Body Mass Index 19.84 (47.63 kg, 154.94 cm) kr3 MDM: 05/21 21:[address] [facility] 22:32 Differential diagnosis: polypharmacy, over medication, acute psychotic break, luis depression, psychosis secondary to non-compliance. Data reviewed: vital signs, nurses notes, lab test result(s), EKG, radiologic studies. Consideration of Admission/Observation Patient was admitted/placed on observation. Escalation of care including admission/observation considered. Test considered but Not performed: CT: ct head not done. Care significantly affected by the following chronic conditions: depression. 22:35 Historians other than the Patient: Parent: mom. [facility] 05/21 21:13 Order name: Acetaminophen; Complete Time: 22:12 luis 05/21 21:13 Order name: Basic Metabolic Panel; Complete Time: 23:29 luis 05/21 21:13 Order name: CBC with Diff; Complete Time: 23:29 [facility] 05/21 21:13 Order name: ETOH Level; Complete Time: 23:29 luis 05/21 21:13 Order name: Hepatic Function; Complete Time: 23:29 luis 05/21 21:13 Order name: PT-INR; Complete Time: 23:29 luis 05/21 21:13 Order name: Ptt, Activated; Complete Time: 23:29 [facility] 05/21 21:13 Order name: Salicylate; Complete Time: 23:29 [facility] 05/21 21:37 Order name: Tylenol Level: 1230 am; Complete Time: 01:01 [facility] 05/22 01:10 Order name: SARS RAPID luis 05/21 21:13 Order name: EKG; Complete Time: 21:14 [facility] 05/21 21:13 Order name: EKG - Nurse/Tech; Complete Time: 21:24 [facility] 05/21 21:13 Order name: IV Saline Lock; Complete Time: 21:21 [facility] 05/21 21:13 Order name: Labs collected and sent; Complete Time: 21:21 [facility] 05/21 21:13 Order name: Suicide Precautions [facility] 05/21 21:13 Order name: Suicide Screening ([place]) [facility] 05/21 21:13 Order name: Urine Dipstick-Ancillary (obtain specimen) [facility] 05/21 21:13 Order name: Urine Test (obtain specimen) [facility] 05/21 21:13 Order name: Misc. Order: call poison control; Complete Time: 23:49 [facility] EC/06 01:09 Rate is 114 beats/min. Rhythm is regular. QRS [place] is Normal. ND interval is normal. [facility] QRS interval is normal. QT interval is normal. No Q waves. T waves are Normal. No ST changes noted. Clinical impression: Sinus tachycardia and No evidence of ischemia. Interpreted by me. Reviewed by me. Administered Medications: 05/21 21:45 Drug: NS 0.9% 1000 ml Route: IV; Rate: 1 bolus; Site: right antecubital; 05/22 05:49 Follow up: Response: No adverse reaction; IV Status: Completed infusion; IV Intake: as6 1000ml 05/21 21:45 Drug: Benadryl (diphenhydrAMINE) 25 mg Route: IVP; Site: right antecubital; 05/22 05:48 Follow up: Response: No adverse reaction 05/21 21:45 Drug: SOLU-Medrol (methylPrednisoLONE) 125 mg Route: IVP; Site: right antecubital; 05/22 05:48 Follow up: Response: No adverse reaction 05/21 21:45 Drug: Pepcid (famotidine) 40 mg Route: IVP; Site: right antecubital; 06 05:48 Follow up: Response: No adverse reaction as6 00:26 Not Given (Other Intervention Used): Benadryl (diphenhydrAMINE) 25 mg IVP once as6 00:26 Drug: Zofran (Ondansetron) 4 mg Route: IVP; Site: right antecubital; as6 05:48 Follow up: Response: No adverse reaction as6 00:48 Drug: Potassium Effervescent Tablet 25 mEq Route: PO; as6 05:48 Follow up: Response: No adverse reaction as6 Disposition Summary: 05/22/22 01:06 Transfer Ordered Transfer Location: Psych Facility luis Reason: Higher level of care luis Condition: Fair luis Problem: new luis Symptoms: have improved luis Accepting Physician: to psych(05/22/22 05:51) as6 Diagnosis - Major depressive disorder, recurrent, moderate luis - Suicide attempt luis - Suicidal ideations luis Forms: - Medication Reconciliation Form luis - SBAR form luis Signatures: Dispatcher [employer] EDAyush Cassidy MD MD cha Attema, Lee, BEHAVIORAL INTERVENTIONIST-C BEHAVIORAL INTERVENTIONIST-Cla1 Delgado Duenas RN RN as6 Isabel Rojas RN RN kr3 Corrections: (The following items were deleted from the chart) 05:51 01:06 to psych luis as6
--- NOTE | 2022-05-22 01:06 | ER ---
Nurse's Notes [facility] Name: Mckenna Lou Age: 21 yrs Sex: Female : 2000 Arrival Date: 05/21/2022 Time: 20:55 Bed 3 Private MD: Diagnosis: Major depressive disorder, recurrent, moderate;Suicide attempt;Suicidal ideations Presentation: 05/21 21:14 Chief complaint: Friend and/or Co-Worker states: patient txt friend at 2022 stating she missy had ingested several tylenol 3 w/ codeine. once friend arrived she counted and there were only 3-4 pills left in the bottle of a script for 30. Patient states" i didn't mean too, I dont want I just dont want to feel this anymore, I am dealing with a lot" Friend stated this is the second time she has done something like this. patient states " I did it the first time right after my sister because I was tired of listening to my mom". Coronavirus screen: Vaccine status: Patient reports being unvaccinated. Ebola Screen: Patient denies travel to an Ebola-affected area in the 21 days before illness onset. Initial Sepsis Screen: Does the patient meet any 2 criteria? No. Patient's initial sepsis screen is negative. Does the patient have a suspected source of infection? No. Patient's initial sepsis screen is negative. Risk Assessment: Do you want to hurt yourself or someone else? Patient reports desire/thoughts of hurting themselves or someone else. Provider notified. Onset of symptoms was May 21, 2022. 21:14 Method Of Arrival: Wheelchair kr3 21:14 Acuity: VICKY 2 as6 Triage Assessment: 21:19 General: Appears uncomfortable, Behavior is calm, cooperative. kr3 Historical: - Allergies: 21:19 No Known Allergies; kr3 - PMHx: 21:19 depression; kr3 - PSHx: 21:19 ; kr3 - Immunization history:: Adult Immunizations not up to date. - Social history:: Smoking status: . Screenin:59 [facility] ED Fall Risk Assessment (Adult) History of falling in the last 3 months, as6 including since admission No falls in past 3 months (0 pts) Confusion or Disorientation No (0 pts) Intoxicated or Sedated Yes (3 pts) Impaired Gait Yes (1 pt) Mobility Assist Device Used No (0 pt) Altered Elimination No (0 pt) Score/Fall Risk Level 3 or more points = High Risk. Abuse screen: Denies threats or abuse. Denies injuries from another. Nutritional screening: No deficits noted. Tuberculosis screening: No symptoms or risk factors identified. Assessment: 21:51 General: Appears slender, Behavior is cooperative, drowsy. Pain: Denies pain. Neuro: as6 Level of Consciousness is lethargic, able to arouse . Cardiovascular: Capillary refill < 3 seconds Patient's skin is warm and dry. Respiratory: Respiratory effort is even, unlabored, Respiratory pattern is regular, symmetrical. Derm: Reports itching. 22:00 General: poison control their recommendation is to monitor liver as6 function and for respiratory depression. Draw acetaminophen level 4 hr post ingestion time. if above 150 admit . 23:01 General: Behavior is drowsy. Neuro: Level of Consciousness is lethargic. as6 05/22 00:59 General: pt sleeping. family at bedside . as6 02:02 General: report given to Jane at [facility] . as6 Overdose: 01:15 [place] Suicide Severity Screening: "In the past month, have you wished you were as6 or wished you could go to sleep and not wake up?" Patient responds "no." "In the past month, have you actually had any thoughts of killing yourself?" Patient responds "no." "In your lifetime, have you ever done anything, started to do anything, or prepared to do anything to end your life?" Patient responds "yes." Patient reports suicidal intent occurred greater than 3 months prior. Vital Signs: 05/21 21:14 Weight 47.63 kg; Height 5 ft. 1 in. (154.94 cm); kr3 21:42 BP 115 / 68; Pulse 87; Resp 22; Temp 97.8; Pulse Ox 98% on R/A; zm 21:58 BP 148 / 105; Pulse 83; Resp 20 S; Pulse Ox 99% on R/A; as6 23:00 BP 126 / 79; Pulse 103; Resp 19 S; Pulse Ox 100% on R/A; as6 05/22 00:00 BP 122 / 77; Pulse 85; Resp 17 S; Pulse Ox 97% on R/A; as6 00:59 BP 125 / 80; Pulse 87; Resp 17 S; Pulse Ox 97% on R/A; as6 02:00 BP 120 / 81; Pulse 90; Resp 17 S; Pulse Ox 97% on R/A; as6 03:00 BP 112 / 64; Pulse 81; Resp 16 S; Pulse Ox 96% on R/A; as6 04:00 BP 129 / 78; Pulse 88; Resp 15 S; Pulse Ox 99% on R/A; as6 05:00 BP 132 / 83; Pulse 82; Resp 17 S; Pulse Ox 97% on R/A; as6 02/ 21:14 Body Mass Index 19.84 (47.63 kg, 154.94 cm) kr3 ED Course: 05/21 20:55 Patient arrived in ED. jj6 21:10 Delgado Duenas, FLORENCE is Primary Nurse. as6 21:10 Ayush Mari MD is Attending Physician. [facility] 21:19 Triage completed. kr3 21:20 Patient placed in an exam room, on a stretcher. kr3 21:20 Inserted saline lock: 20 gauge in right antecubital area, using aseptic technique. Blood collected. 21:21 Acetaminophen Sent. zm 21:21 Basic Metabolic Panel Sent. zm 21:21 CBC with Diff Sent. zm 21:21 ETOH Level Sent. zm 21:21 Hepatic Function Sent. zm 21:22 PT-INR Sent. zm 21:22 Ptt, Activated Sent. zm 21:22 Salicylate Sent. zm 21:59 Arm band placed on. as6 21:59 Placed in gown. Bed in low position. Call light in reach. Side rails up X2. Adult w/ as6 patient. Client placed on continuous cardiac and pulse oximetry monitoring. NIBP monitoring applied. Warm blanket given. 05/22 01:15 No provider procedures requiring assistance completed. as6 05:47 IV discontinued, intact, bleeding controlled, No redness/swelling at site. Pressure as6 dressing applied. Administered Medications: 05/21 21:45 Drug: NS 0.9% 1000 ml Route: IV; Rate: 1 bolus; Site: right antecubital; as6 05/22 05:49 Follow up: Response: No adverse reaction; IV Status: Completed infusion; IV Intake: as6 1000ml 05/21 21:45 Drug: Benadryl (diphenhydrAMINE) 25 mg Route: IVP; Site: right antecubital; as6 05/22 05:48 Follow up: Response: No adverse reaction as6 05/21 21:45 Drug: SOLU-Medrol (methylPrednisoLONE) 125 mg Route: IVP; Site: right antecubital; as6 05/22 05:48 Follow up: Response: No adverse reaction as6 05/21 21:45 Drug: Pepcid (famotidine) 40 mg Route: IVP; Site: right antecubital; as6 05/22 05:48 Follow up: Response: No adverse reaction as6 00:26 Not Given (Other Intervention Used): Benadryl (diphenhydrAMINE) 25 mg IVP once as6 00:26 Drug: Zofran (Ondansetron) 4 mg Route: IVP; Site: right antecubital; as6 05:48 Follow up: Response: No adverse reaction as6 00:48 Drug: Potassium Effervescent Tablet 25 mEq Route: PO; as6 05:48 Follow up: Response: No adverse reaction as6 Medication: 05/21 21:59 VIS not applicable for this client. as6 Intake: 05/22 05:49 IV: 1000ml; Total: 1000ml. as6 Outcome: 01:06 ER care complete, transfer ordered by MD. smith 05:47 Transferred by ground EMS Transfer form completed. X-rays sent w/ patient. as6 05:47 Condition: stable 05:47 Instructed on the need for transfer. 05:51 Patient left the ED. as6 Signatures: Ayush Mari MD MD cha Jeffries, Jennifer jj6 Delgado Duenas RN RN as6 Pepper Gomez Kelley, RN RN kr3 Corrections: (The following items were deleted from the chart) 05/21 21:48 21:14 Acuity: VICKY 3 kr3 as6
[2022-05-22 01:33] LABS: SARS-CoV-2 Antigen Rapid Res Negative (Negative)
[2022-05-22 06:06] VITALS: TEMP 97.8
[2022-05-22 06:24] VITALS: BP 132/83; O2SAT 97
== END 2022-05-22 05:51 ==
LOC: ER 20:54
DX: T39.1X2A Poisoning by 4-Aminophenol derivatives, intentional self-harm, initial encounter (principal); F33.1 Major depressive disorder, recurrent, moderate; Z20.822 Contact with and (suspected) exposure to COVID-19
CPT/HCPCS: 93005; 85025; 80048; 36415; 85610; 80076; 85730; 87811; J1200; J7030; J2930; J2405; G0480 ×4

== ENCOUNTER 2023-12-30 20:22 | Emergency (ER) | payer OTHER, SELFPAY ==
--- OUTSIDE RECORDS SUMMARY | 2023-12-30 20:30 | XMS REPORT | Continuity of Care Document ---
Author Name Unknown Address [address] [facility] [address] [place] [address] [facility] thconnect Address [address] [facility] [address] [place] [address] Care Team Providers Care Actionscript Developer Name Role Phone BASIL DAVIS Primary Care Physician Unavaila JAMEEL Katz Attending Clinician Unavailable Jameel Dennison Attending Clinician [phone] CHACHA LOCKE Attending Clinician Unavailab VICKEY Huber Attending Clinician UnavailVICKEY Haro Attending Clinician Unavaila nyla Doctor Unassigned, [place] Attending Clinician U navailable Lab, Ang - Db Attending Clinician Unavailable BERNY MACDONALD Attending Clinician Unavail able Torres WHBerny LEWIS Attending Clinician + Lab, Ang-Rmchp Attending Clinician Unavailable LEBRON HENSLEY Attending Clinician Unavailable VÍCTOR BENSON Attending Clinician Unavailable Víctor Benson MD Attending Clinician [phone] MARINA BEARDEN Attending Clinician UnavailMarina Prasad Attending Clinician [phone] Unknown, Attending Attending Clinician Unavailab BASIL Vaughn Attending Clinician Unavailable Basil Davis MD Attending Clinician [phone] Celio Dean Attending Clinician [phone] Markeladianoble FIRE SPRINKLER INSTALLERMatthew Attending Clinician [phone] CELIO HOWARD Attending Clinician Unavailable 2, [facility] Attending Clinician Unavailable Lisa LORD, Rachna Attending Clinician [phone] Vaccine, [facility] Attending Clinician Unavailable RACHNA RUBIO Attending Clinician UnavailLebron Finnegan MD Attending Clinician [phone] Pascual Ron DO Attending Clinician [phone] PASCUAL RON Attending Clinician Unavailable Wilber Swanson DO Attending Clinician [phone] ANGELA MAHONEY Attending Clinician Unavailable ANDREA MCLAUGHLIN Attending Clinician UnavailANDREA Warren Attending Clinician UnavailAndrea Warren MD Attending Clinician [phone] CHACHA LOCKE Admitting Clinician Unavailab lashae Payers Payer Name Policy Type Policy Number Effective Date Expirati on Date Source [facility] [id number] 2018 00:00:00 Problems Condition Name Condition Details Condition Category Status Onset Date Resolution Date Last Treatment Date Treating Clinician Comments Source examinatio n or test, negative result examinatio n or test, negative result Disease Active 10-12 00:00: 00 [facility] History of miscarriag e History of miscarriag e Disease Active 10-12 00:00: 00 [facility] Nexplanon insertion Nexplanon insertion Disease Active - 00:00: 00 [facility] Need for prophylact ic vaccinatio n against human papillomav irus (HPV) types 6, 11, 16, and 18 Need for prophylact ic vaccinatio n against human papillomav irus (HPV) types 6, 11, 16, and 18 Disease Active 8- 00:00: 00 [facility] ADHD (attention deficit hyperactiv ity disorder), combined type ADHD (attention deficit hyperactiv ity disorder), combined type Disease Active 9- 00:00: 00 [facility] PTSD (post-trau matic stress disorder) PTSD (post-trau matic stress disorder) Disease Active - 00:00: 00 [facility] Primary insomnia Primary insomnia Disease Active 12-24 00:00: 00 [facility] Mild depression Mild depression Disease Active - 00:00: 00 [facility] Anxiety Anxiety Disease Active 12-24 00:00: 00 [facility] Screening for diabetes mellitus (DM) Screening for diabetes mellitus (DM) Disease Active 12-24 00:00: 00 [facility] Suicide attempt Suicide attempt Disease Active 12-24 00:00: 00 [facility] Insomnia, unspecifie d type Insomnia, unspecifie d type Disease Active 12-24 00:00: 00 [facility] Allergies, Adverse Reactions, Alerts Allergy Name Allergy Type Status Severity Reaction(s) Onset Date Inactive Date Treating Clinician Comments Source NO KNOWN ALLERGIE S Drug Class Active [facility] Social History Social Habit Start Date Stop Date Quantity Comments Source [facility] Alcoholic beverage intake 2023-09-04 00:00:00 2023-09-04 00:00:00 .29 /d [facility] Alcohol intake 2023-08-06 00:00:00 2023-08-06 00:00:00 .29 /d [facility] History of Social function 2022-10-12 00:00:00 2022-10-12 00:00:00 [facility] Exposure to SARS-CoV-2 (event) 2022-09-30 00:00:00 2022-10-10 14:54:00 Not sure [facility] Tobacco use and exposure 2021-12-09 00:00:00 2021-12-09 00:00:00 Smokeless tobacco non-user [facility] Sex assigned at 2000 00:00:00 2000 00:00:00 [facility] Smoking Status Start Date Stop Date Source Never smoked tobacco [facility] Medications Ordered Medication Name Filled Medication Name Start Date Stop Date Current Medication? Ordering Clinician Indication Dosage Frequency Signature (SIG) Comments Components Source dexamethaso ne sod phos PF injection 10 mg 09-03 23:30: 00 09-04 00:12 :00 No 10mg 10 mg, Intramuscu lar, ONCE, 1 dose, On Sun09/04/23 at 1830, 1 mL [facility] ibuprofen (IBU) tablet 600 mg 09-03 23:30: 00 09-04 00:14 :00 No 600mg 600 mg, Oral, ONCE, 1 dose, On Sun09/04/23 at 1830, RAHAT [facility] amoxicillin 500 mg capsule 09-03 00:00: 00 09-14 04:59 :00 No [id number] 500mg Take 1 capsule by mouth in the morning and 1 capsule in the evening. Do all this for 10 days. [facility] ondansetron (ZOFRAN-ODT ) disintegrat ing tablet 4 mg 08-06 01:30: 00 08-06 01:27 :00 No 4mg 4 mg, Oral, ONCE, 1 dose, On Sun08/06/23 at 2030, Routine [facility] acetaminoph en (TYLENOL) tablet 1,000 mg 08-06 00:45: 00 08-06 01:27 :00 No 1000mg 1,000 mg, Oral, ONCE, 1 dose, On Sun08/06/23 at 1945, Routine [facility] ondansetron 4 mg disintegrat ing tablet 08-05 00:00: 00 Yes [id number] 4mg Take 1 tablet by mouth every 8 (eight) hours as needed for Nausea and Vomiting (N/V). [facility] etonogestre L (NEXPLANON) implant 68 mg 10-12 16:45: 00 10-12 15:54 :00 No [id number] 68mg Univer s [facility] NaCl 0.9% (NS) IV infusion 1,000 mL 07-19 04:15: 00 Yes 1000mL at 999 mL/hr, Intravenou s, CONTINUOUS , Starting on Sun07/18/22 at 2315, Until Discontinu ed, Routine [facility] amoxicillin 500 mg capsule 07-18 00:00: 00 08-16 00:00 :00 No [id number] 500mg Take 1 capsule by mouth in the morning and 1 capsule at noon and 1 capsule in the evening. [facility] FLUoxetine 20 mg capsule 05-19 00:00: 00 Yes [facility] vit calc,iron,f olic ( VITAMIN ORAL) 2021-04 13:14: 13 12-16 00:00 :00 No Take by mouth. [facility] ondansetron 4 mg disintegrat ing tablet 2021-04 00:00: 00 08-16 00:00 :00 No [id number] 4mg Take 1 tablet by mouth every 8 (eight) hours as needed for Nausea and Vomiting (N/V). [facility] traZODone 50 mg tablet 2021-04 00:00: 00 Yes [id number] 50mg Take 1 tablet by mouth at bedtime. [facility] dextroamphe tamine-amph etamine (ADDERALL) 10 mg tablet 01-03 00:00: 00 Yes [id number] 5mg Take 0.5 tablets by mouth in the morning. [facility] QUEtiapine 25 mg tablet 01-03 00:00: 00 Yes [id number] 25mg Take 1 tablet by mouth at bedtime. [facility] traZODone 50 mg tablet 01-03 00:00: 00 Yes [id number] 50mg Take 1 tablet by mouth at bedtime. [facility] fluconazole (DIFLUCAN) 200 mg tablet 12-11 00:00: 00 Yes [id number] 200mg Take 1 tablet by mouth in the morning. [facility] metroNIDAZO LE (FLAGYL) 500 mg tablet 12-11 00:00: 00 12-19 04:59 :00 No [id number] 500mg Take 1 tablet by mouth every 12 (twelve) hours for 7 days. [facility] Nitrofurant oin&Nit. Macrocryst (MACROBID) 100 mg capsule 12-09 00:00: 00 12-17 04:59 :00 No [id number] 100mg Take 1 capsule by mouth in the morning and 1 capsule in the evening. Do all this for 7 days. [facility] dextroamphe tamine-amph etamine (ADDERALL) 5 mg tablet 12-03 00:00: 00 Yes [id number] 5mg Take 1 tablet by mouth in the morning. [facility] QUEtiapine 25 mg tablet 12-03 00:00: 00 Yes [id number] 25mg Take 1 tablet by mouth in the morning. [facility] NUVARING 0.12-0.015 mg/24 hr vaginal insert 08-17 00:00: 00 08-16 00:00 :00 No [id number] 1{each} Insert 1 Each into vagina once every month. Insert vaginally and leave in place for 3 consecutiv e weeks, then remove for 1 week. [facility] Immunizations Ordered Immunization Name Filled Immunization Name Date Status Comments Source HPV9 2021-12-02 00:00:00 Completed [facility] SARS-COV-2 COVID-19 MODERNA 0.25ML BOOSTER VACCINE 2021-12-02 00:00:00 Completed [facility] HPV9 2021-12-02 00:00:00 Completed [facility] SARS-COV-2 COVID-19 MODERNA 0.25ML BOOSTER VACCINE 2021-12-02 00:00:00 Completed [facility] HPV9 2021-12-02 00:00:00 Completed [facility] SARS-COV-2 COVID-19 MODERNA 0.25ML BOOSTER VACCINE 2021-12-02 00:00:00 Completed [facility] HPV9 2021-12-02 00:00:00 Completed [facility] SARS-COV-2 COVID-19 MODERNA 0.25ML BOOSTER VACCINE 2021-12-02 00:00:00 Completed [facility] HPV9 2021-12-02 00:00:00 Completed [facility] SARS-COV-2 COVID-19 MODERNA 0.25ML BOOSTER VACCINE 2021-12-02 00:00:00 Completed [facility] HPV9 2021-12-02 00:00:00 Completed [facility] SARS-COV-2 COVID-19 MODERNA 0.25ML BOOSTER VACCINE 2021-12-02 00:00:00 Completed [facility] HPV9 2021-12-02 00:00:00 Completed [facility] SARS-COV-2 COVID-19 MODERNA 0.25ML BOOSTER VACCINE 2021-12-02 00:00:00 Completed [facility] HPV9 2021-12-02 00:00:00 Completed [facility] SARS-COV-2 COVID-19 MODERNA 0.25ML BOOSTER VACCINE 2021-12-02 00:00:00 Completed [facility] HPV9 2021-12-02 00:00:00 Completed [facility] SARS-COV-2 COVID-19 MODERNA 0.25ML BOOSTER VACCINE 2021-12-02 00:00:00 Completed [facility] HPV9 2021-12-02 00:00:00 Completed [facility] SARS-COV-2 COVID-19 MODERNA 0.25ML BOOSTER VACCINE 2021-12-02 00:00:00 Completed [facility] HPV9 2021-12-02 00:00:00 Completed [facility] SARS-COV-2 COVID-19 MODERNA 0.25ML BOOSTER VACCINE 2021-12-02 00:00:00 Completed [facility] HPV9 2021-12-02 00:00:00 Completed [facility] SARS-COV-2 COVID-19 MODERNA 0.25ML BOOSTER VACCINE 2021-12-02 00:00:00 Completed [facility] HPV9 2021-12-02 00:00:00 Completed [facility] SARS-COV-2 COVID-19 MODERNA 0.25ML BOOSTER VACCINE 2021-12-02 00:00:00 Completed [facility] HPV9 2021-12-02 00:00:00 Completed [facility] SARS-COV-2 COVID-19 MODERNA 0.25ML BOOSTER VACCINE 2021-12-02 00:00:00 Completed [facility] HPV9 2021-12-02 00:00:00 Completed [facility] SARS-COV-2 COVID-19 MODERNA 0.25ML BOOSTER VACCINE 2021-12-02 00:00:00 Completed [facility] HPV9 2021-12-02 00:00:00 Completed [facility] SARS-COV-2 COVID-19 MODERNA 0.25ML BOOSTER VACCINE 2021-12-02 00:00:00 Completed [facility] HPV9 2021-12-02 00:00:00 Completed [facility] SARS-COV-2 COVID-19 MODERNA 0.25ML BOOSTER VACCINE 2021-12-02 00:00:00 Completed [facility] HPV9 2021-12-02 00:00:00 Completed [facility] SARS-COV-2 COVID-19 MODERNA 0.25ML BOOSTER VACCINE 2021-12-02 00:00:00 Completed [facility] HPV9 2021-12-02 00:00:00 Completed [facility] SARS-COV-2 COVID-19 MODERNA 0.25ML BOOSTER VACCINE 2021-12-02 00:00:00 Completed [facility] HPV9 2021-12-02 00:00:00 Completed [facility] SARS-COV-2 COVID-19 MODERNA 0.25ML BOOSTER VACCINE 2021-12-02 00:00:00 Completed [facility] HPV9 2021-12-02 00:00:00 Completed [facility] SARS-COV-2 COVID-19 MODERNA 0.25ML BOOSTER VACCINE 2021-12-02 00:00:00 Completed [facility] HPV9 2021-12-02 00:00:00 Completed [facility] SARS-COV-2 COVID-19 MODERNA 0.25ML BOOSTER VACCINE 2021-12-02 00:00:00 Completed [facility] HPV9 2021-12-02 00:00:00 Completed [facility] SARS-COV-2 COVID-19 MODERNA 0.25ML BOOSTER VACCINE 2021-12-02 00:00:00 Completed [facility] HPV9 2021-12-02 00:00:00 Completed [facility] SARS-COV-2 COVID-19 MODERNA 0.25ML BOOSTER VACCINE 2021-12-02 00:00:00 Completed [facility] HPV9 2021-12-02 00:00:00 Completed [facility] SARS-COV-2 COVID-19 MODERNA 0.25ML BOOSTER VACCINE 2021-12-02 00:00:00 Completed [facility] HPV9 2021-12-02 00:00:00 Completed [facility] SARS-COV-2 COVID-19 MODERNA 0.25ML BOOSTER VACCINE 2021-12-02 00:00:00 Completed [facility] HPV9 2021-12-02 00:00:00 Completed [facility] SARS-COV-2 COVID-19 MODERNA 0.25ML BOOSTER VACCINE 2021-12-02 00:00:00 Completed [facility] HPV9 2021-12-02 00:00:00 Completed [facility] SARS-COV-2 COVID-19 MODERNA 0.25ML BOOSTER VACCINE 2021-12-02 00:00:00 Completed [facility] HPV9 2021-12-02 00:00:00 Completed [facility] SARS-COV-2 COVID-19 MODERNA 0.25ML BOOSTER VACCINE 2021-12-02 00:00:00 Completed [facility] HPV9 2021-12-02 00:00:00 Completed [facility] SARS-COV-2 COVID-19 MODERNA 0.25ML BOOSTER VACCINE 2021-12-02 00:00:00 Completed [facility] HPV9 2021-12-02 00:00:00 Completed [facility] SARS-COV-2 COVID-19 MODERNA 0.25ML BOOSTER VACCINE 2021-12-02 00:00:00 Completed [facility] HPV9 2021-12-02 00:00:00 Completed [facility] SARS-COV-2 COVID-19 MODERNA 0.25ML BOOSTER VACCINE 2021-12-02 00:00:00 Completed [facility] HPV9 2021-12-02 00:00:00 Completed [facility] SARS-COV-2 COVID-19 MODERNA 0.25ML BOOSTER VACCINE 2021-12-02 00:00:00 Completed [facility] HPV9 2021-12-02 00:00:00 Completed [facility] SARS-COV-2 COVID-19 MODERNA 0.25ML BOOSTER VACCINE 2021-12-02 00:00:00 Completed [facility] HPV9 2021-12-02 00:00:00 Completed [facility] SARS-COV-2 COVID-19 MODERNA 0.25ML BOOSTER VACCINE 2021-12-02 00:00:00 Completed [facility] HPV9 2021-12-02 00:00:00 Completed [facility] SARS-COV-2 COVID-19 MODERNA 0.25ML BOOSTER VACCINE 2021-12-02 00:00:00 Completed [facility] HPV9 2021-12-02 00:00:00 Completed [facility] SARS-COV-2 COVID-19 MODERNA 0.25ML BOOSTER VACCINE 2021-12-02 00:00:00 Completed [facility] HPV9 2021-12-02 00:00:00 Completed [facility] SARS-COV-2 COVID-19 MODERNA 0.25ML BOOSTER VACCINE 2021-12-02 00:00:00 Completed [facility] HPV9 2021-12-02 00:00:00 Completed [facility] SARS-COV-2 COVID-19 MODERNA 0.25ML BOOSTER VACCINE 2021-12-02 00:00:00 Completed [facility] HPV9 2021-12-02 00:00:00 Completed [facility] SARS-COV-2 COVID-19 MODERNA 0.25ML BOOSTER VACCINE 2021-12-02 00:00:00 Completed [facility] HPV9 2021-12-02 00:00:00 Completed [facility] SARS-COV-2 COVID-19 MODERNA 0.25ML BOOSTER VACCINE 2021-12-02 00:00:00 Completed [facility] HPV9 2021-12-02 00:00:00 Completed [facility] SARS-COV-2 COVID-19 MODERNA 0.25ML BOOSTER VACCINE 2021-12-02 00:00:00 Completed [facility] HPV9 2021-12-02 00:00:00 Completed [facility] SARS-COV-2 COVID-19 MODERNA 0.25ML BOOSTER VACCINE 2021-12-02 00:00:00 Completed [facility] SARS-COV-2 COVID-19 MODERNA 12+ YRS VACCINE 2020-12-23 00:00:00 Completed [facility] SARS-COV-2 COVID-19 MODERNA 12+ YRS VACCINE 2020-12-23 00:00:00 Completed [facility] SARS-COV-2 COVID-19 MODERNA 12+ YRS VACCINE 2020-12-23 00:00:00 Completed [facility] SARS-COV-2 COVID-19 MODERNA 12+ YRS VACCINE 2020-12-23 00:00:00 Completed [facility] SARS-COV-2 COVID-19 MODERNA 12+ YRS VACCINE 2020-12-23 00:00:00 Completed [facility] SARS-COV-2 COVID-19 MODERNA 12+ YRS VACCINE 2020-12-23 00:00:00 Completed [facility] SARS-COV-2 COVID-19 MODERNA 12+ YRS VACCINE 2020-12-23 00:00:00 Completed [facility] SARS-COV-2 COVID-19 MODERNA 12+ YRS VACCINE 2020-12-23 00:00:00 Completed [facility] SARS-COV-2 COVID-19 MODERNA 12+ YRS VACCINE 2020-12-23 00:00:00 Completed [facility] SARS-COV-2 COVID-19 MODERNA 12+ YRS VACCINE 2020-12-23 00:00:00 Completed [facility] SARS-COV-2 COVID-19 MODERNA 12+ YRS VACCINE 2020-12-23 00:00:00 Completed [facility] SARS-COV-2 COVID-19 MODERNA 12+ YRS VACCINE 2020-12-23 00:00:00 Completed [facility] SARS-COV-2 COVID-19 MODERNA 12+ YRS VACCINE 2020-12-23 00:00:00 Completed [facility] SARS-COV-2 COVID-19 MODERNA 12+ YRS VACCINE 2020-12-23 00:00:00 Completed [facility] SARS-COV-2 COVID-19 MODERNA 12+ YRS VACCINE 2020-12-23 00:00:00 Completed [facility] SARS-COV-2 COVID-19 MODERNA 12+ YRS VACCINE 2020-12-23 00:00:00 Completed [facility] SARS-COV-2 COVID-19 MODERNA 12+ YRS VACCINE 2020-12-23 00:00:00 Completed [facility] SARS-COV-2 COVID-19 MODERNA 12+ YRS VACCINE 2020-12-23 00:00:00 Completed [facility] SARS-COV-2 COVID-19 MODERNA 12+ YRS VACCINE 2020-12-23 00:00:00 Completed [facility] SARS-COV-2 COVID-19 MODERNA 12+ YRS VACCINE 2020-12-23 00:00:00 Completed [facility] SARS-COV-2 COVID-19 MODERNA 12+ YRS VACCINE 2020-12-23 00:00:00 Completed [facility] SARS-COV-2 COVID-19 MODERNA 12+ YRS VACCINE 2020-12-23 00:00:00 Completed [facility] SARS-COV-2 COVID-19 MODERNA 12+ YRS VACCINE 2020-12-23 00:00:00 Completed [facility] SARS-COV-2 COVID-19 MODERNA 12+ YRS VACCINE 2020-12-23 00:00:00 Completed [facility] SARS-COV-2 COVID-19 MODERNA 12+ YRS VACCINE 2020-12-23 00:00:00 Completed [facility] SARS-COV-2 COVID-19 MODERNA 12+ YRS VACCINE 2020-12-23 00:00:00 Completed [facility] SARS-COV-2 COVID-19 MODERNA 12+ YRS VACCINE 2020-12-23 00:00:00 Completed [facility] SARS-COV-2 COVID-19 MODERNA 12+ YRS VACCINE 2020-12-23 00:00:00 Completed [facility] SARS-COV-2 COVID-19 MODERNA 12+ YRS VACCINE 2020-12-23 00:00:00 Completed [facility] SARS-COV-2 COVID-19 MODERNA 12+ YRS VACCINE 2020-12-23 00:00:00 Completed [facility] SARS-COV-2 COVID-19 MODERNA 12+ YRS VACCINE 2020-12-23 00:00:00 Completed [facility] SARS-COV-2 COVID-19 MODERNA 12+ YRS VACCINE 2020-12-23 00:00:00 Completed [facility] SARS-COV-2 COVID-19 MODERNA 12+ YRS VACCINE 2020-12-23 00:00:00 Completed [facility] SARS-COV-2 COVID-19 MODERNA 12+ YRS VACCINE 2020-12-23 00:00:00 Completed [facility] SARS-COV-2 COVID-19 MODERNA 12+ YRS VACCINE 2020-12-23 00:00:00 Completed [facility] SARS-COV-2 COVID-19 MODERNA 12+ YRS VACCINE 2020-12-23 00:00:00 Completed [facility] SARS-COV-2 COVID-19 MODERNA 12+ YRS VACCINE 2020-12-23 00:00:00 Completed [facility] SARS-COV-2 COVID-19 MODERNA 12+ YRS VACCINE 2020-12-23 00:00:00 Completed [facility] SARS-COV-2 COVID-19 MODERNA 12+ YRS VACCINE 2020-12-23 00:00:00 Completed [facility] SARS-COV-2 COVID-19 MODERNA 12+ YRS VACCINE 2020-12-23 00:00:00 Completed [facility] SARS-COV-2 COVID-19 MODERNA 12+ YRS VACCINE 2020-12-23 00:00:00 Completed [facility] SARS-COV-2 COVID-19 MODERNA 12+ YRS VACCINE 2020-12-23 00:00:00 Completed [facility] SARS-COV-2 COVID-19 MODERNA 12+ YRS VACCINE 2020-12-23 00:00:00 Completed [facility] SARS-COV-2 COVID-19 MODERNA 12+ YRS VACCINE 2020-11-25 00:00:00 Completed [facility] SARS-COV-2 COVID-19 MODERNA 12+ YRS VACCINE 2020-11-25 00:00:00 Completed [facility] SARS-COV-2 COVID-19 MODERNA 12+ YRS VACCINE 2020-11-25 00:00:00 Completed [facility] SARS-COV-2 COVID-19 MODERNA 12+ YRS VACCINE 2020-11-25 00:00:00 [facility] [facility] SARS-COV-2 COVID-19 MODERNA 12+ YRS VACCINE 2020-11-25 00:00:00 Completed [facility] SARS-COV-2 COVID-19 MODERNA 12+ YRS VACCINE 2020-11-25 00:00:00 Completed [facility] SARS-COV-2 COVID-19 MODERNA 12+ YRS VACCINE 2020-11-25 00:00:00 Completed [facility] SARS-COV-2 COVID-19 MODERNA 12+ YRS VACCINE 2020-11-25 00:00:00 Completed [facility] SARS-COV-2 COVID-19 MODERNA 12+ YRS VACCINE 2020-11-25 00:00:00 Completed [facility] SARS-COV-2 COVID-19 MODERNA 12+ YRS VACCINE 2020-11-25 00:00:00 Completed [facility] SARS-COV-2 COVID-19 MODERNA 12+ YRS VACCINE 2020-11-25 00:00:00 Completed [facility] SARS-COV-2 COVID-19 MODERNA 12+ YRS VACCINE 2020-11-25 00:00:00 Completed [facility] SARS-COV-2 COVID-19 MODERNA 12+ YRS VACCINE 2020-11-25 00:00:00 Completed [facility] SARS-COV-2 COVID-19 MODERNA 12+ YRS VACCINE 2020-11-25 00:00:00 Completed [facility] SARS-COV-2 COVID-19 MODERNA 12+ YRS VACCINE 2020-11-25 00:00:00 Completed [facility] SARS-COV-2 COVID-19 MODERNA 12+ YRS VACCINE 2020-11-25 00:00:00 Completed [facility] SARS-COV-2 COVID-19 MODERNA 12+ YRS VACCINE 2020-11-25 00:00:00 Completed [facility] SARS-COV-2 COVID-19 MODERNA 12+ YRS VACCINE 2020-11-25 00:00:00 Completed [facility] SARS-COV-2 COVID-19 MODERNA 12+ YRS VACCINE 2020-11-25 00:00:00 Completed [facility] SARS-COV-2 COVID-19 MODERNA 12+ YRS VACCINE 2020-11-25 00:00:00 Completed [facility] SARS-COV-2 COVID-19 MODERNA 12+ YRS VACCINE 2020-11-25 00:00:00 Completed [facility] SARS-COV-2 COVID-19 MODERNA 12+ YRS VACCINE 2020-11-25 00:00:00 Completed [facility] SARS-COV-2 COVID-19 MODERNA 12+ YRS VACCINE 2020-11-25 00:00:00 Completed [facility] SARS-COV-2 COVID-19 MODERNA 12+ YRS VACCINE 2020-11-25 00:00:00 Completed [facility] SARS-COV-2 COVID-19 MODERNA 12+ YRS VACCINE 2020-11-25 00:00:00 Completed [facility] SARS-COV-2 COVID-19 MODERNA 12+ YRS VACCINE 2020-11-25 00:00:00 Completed [facility] SARS-COV-2 COVID-19 MODERNA 12+ YRS VACCINE 2020-11-25 00:00:00 Completed [facility] SARS-COV-2 COVID-19 MODERNA 12+ YRS VACCINE 2020-11-25 00:00:00 Completed [facility] SARS-COV-2 COVID-19 MODERNA 12+ YRS VACCINE 2020-11-25 00:00:00 Completed [facility] SARS-COV-2 COVID-19 MODERNA 12+ YRS VACCINE 2020-11-25 00:00:00 Completed [facility] SARS-COV-2 COVID-19 MODERNA 12+ YRS VACCINE 2020-11-25 00:00:00 Completed [facility] SARS-COV-2 COVID-19 MODERNA 12+ YRS VACCINE 2020-11-25 00:00:00 Completed [facility] SARS-COV-2 COVID-19 MODERNA 12+ YRS VACCINE 2020-11-25 00:00:00 Completed [facility] SARS-COV-2 COVID-19 MODERNA 12+ YRS VACCINE 2020-11-25 00:00:00 Completed [facility] SARS-COV-2 COVID-19 MODERNA 12+ YRS VACCINE 2020-11-25 00:00:00 Completed [facility] SARS-COV-2 COVID-19 MODERNA 12+ YRS VACCINE 2020-11-25 00:00:00 Completed [facility] SARS-COV-2 COVID-19 MODERNA 12+ YRS VACCINE 2020-11-25 00:00:00 Completed [facility] SARS-COV-2 COVID-19 MODERNA 12+ YRS VACCINE 2020-11-25 00:00:00 Completed [facility] SARS-COV-2 COVID-19 MODERNA 12+ YRS VACCINE 2020-11-25 00:00:00 Completed [facility] SARS-COV-2 COVID-19 MODERNA 12+ YRS VACCINE 2020-11-25 00:00:00 Completed [facility] SARS-COV-2 COVID-19 MODERNA 12+ YRS VACCINE 2020-11-25 00:00:00 Completed [facility] SARS-COV-2 COVID-19 MODERNA 12+ YRS VACCINE 2020-11-25 00:00:00 Completed [facility] SARS-COV-2 COVID-19 MODERNA 12+ YRS VACCINE 2020-11-25 00:00:00 Completed [facility] TDAP (ADACEL) VACCINE 2018-10-15 00:00:00 Completed [facility] TDAP (ADACEL) VACCINE 2018-10-15 00:00:00 Completed [facility] TDAP (ADACEL) VACCINE 2018-10-15 00:00:00 Completed [facility] TDAP (ADACEL) VACCINE 2018-10-15 00:00:00 Completed [facility] TDAP (ADACEL) VACCINE 2018-10-15 00:00:00 Completed [facility] TDAP (ADACEL) VACCINE 2018-10-15 00:00:00 Completed [facility] TDAP (ADACEL) VACCINE 2018-10-15 00:00:00 Completed [facility] TDAP (ADACEL) VACCINE 2018-10-15 00:00:00 Completed [facility] TDAP (ADACEL) VACCINE 2018-10-15 00:00:00 Completed [facility] TDAP (ADACEL) VACCINE 2018-10-15 00:00:00 Completed [facility] TDAP (ADACEL) VACCINE 2018-10-15 00:00:00 Completed [facility] TDAP (ADACEL) VACCINE 2018-10-15 00:00:00 Completed [facility] TDAP (ADACEL) VACCINE 2018-10-15 00:00:00 Completed [facility] TDAP (ADACEL) VACCINE 2018-10-15 00:00:00 Completed [facility] TDAP (ADACEL) VACCINE 2018-10-15 00:00:00 Completed [facility] TDAP (ADACEL) VACCINE 2018-10-15 00:00:00 Completed [facility] TDAP (ADACEL) VACCINE 2018-10-15 00:00:00 Completed [facility] TDAP (ADACEL) VACCINE 2018-10-15 00:00:00 Completed [facility] TDAP (ADACEL) VACCINE 2018-10-15 00:00:00 Completed [facility] TDAP (ADACEL) VACCINE 2018-10-15 00:00:00 Completed [facility] TDAP (ADACEL) VACCINE 2018-10-15 00:00:00 Completed [facility] TDAP (ADACEL) VACCINE 2018-10-15 00:00:00 Completed [facility] TDAP (ADACEL) VACCINE 2018-10-15 00:00:00 Completed [facility] TDAP (ADACEL) VACCINE 2018-10-15 00:00:00 Completed [facility] TDAP (ADACEL) VACCINE 2018-10-15 00:00:00 Completed [facility] TDAP (ADACEL) VACCINE 2018-10-15 00:00:00 Completed [facility] TDAP (ADACEL) VACCINE 2018-10-15 00:00:00 Completed [facility] TDAP (ADACEL) VACCINE 2018-10-15 00:00:00 Completed [facility] TDAP (ADACEL) VACCINE 2018-10-15 00:00:00 Completed [facility] TDAP (ADACEL) VACCINE 2018-10-15 00:00:00 Completed [facility] TDAP (ADACEL) VACCINE 2018-10-15 00:00:00 Completed [facility] TDAP (ADACEL) VACCINE 2018-10-15 00:00:00 Completed [facility] TDAP (ADACEL) VACCINE 2018-10-15 00:00:00 Completed [facility] TDAP (ADACEL) VACCINE 2018-10-15 00:00:00 Completed [facility] TDAP (ADACEL) VACCINE 2018-10-15 00:00:00 Completed [facility] TDAP (ADACEL) VACCINE 2018-10-15 00:00:00 Completed [facility] TDAP (ADACEL) VACCINE 2018-10-15 00:00:00 Completed [facility] TDAP (ADACEL) VACCINE 2018-10-15 00:00:00 Completed [facility] TDAP (ADACEL) VACCINE 2018-10-15 00:00:00 Completed [facility] TDAP (ADACEL) VACCINE 2018-10-15 00:00:00 Completed [facility] TDAP (ADACEL) VACCINE 2018-10-15 00:00:00 Completed [facility] TDAP (ADACEL) VACCINE 2018-10-15 00:00:00 Completed [facility] TDAP (ADACEL) VACCINE 2018-10-15 00:00:00 Completed [facility] Influenza Virus Vaccine Quad .5 mL IM 6+ MO 2018-06-12 00:00:00 Completed [facility] Influenza Virus Vaccine Quad .5 mL IM 6+ MO 2018-06-12 00:00:00 Completed [facility] Influenza Virus Vaccine Quad .5 mL IM 6+ MO 2018-06-12 00:00:00 Completed [facility] Influenza Virus Vaccine Quad .5 mL IM 6+ MO 2018-06-12 00:00:00 Completed [facility] Influenza Virus Vaccine Quad .5 mL IM 6+ MO 2018-06-12 00:00:00 Completed [facility] Influenza Virus Vaccine Quad .5 mL IM 6+ MO 2018-06-12 00:00:00 Completed [facility] Influenza Virus Vaccine Quad .5 mL IM 6+ MO 2018-06-12 00:00:00 Completed [facility] Influenza Virus Vaccine Quad .5 mL IM 6+ MO 2018-06-12 00:00:00 Completed [facility] Influenza Virus Vaccine Quad .5 mL IM 6+ MO 2018-06-12 00:00:00 Completed [facility] Influenza Virus Vaccine Quad .5 mL IM 6+ MO 2018-06-12 00:00:00 Completed [facility] Influenza Virus Vaccine Quad .5 mL IM 6+ MO 2018-06-12 00:00:00 Completed [facility] Influenza Virus Vaccine Quad .5 mL IM 6+ MO 2018-06-12 00:00:00 Completed [facility] Influenza Virus Vaccine Quad .5 mL IM 6+ MO 2018-06-12 00:00:00 Completed [facility] Influenza Virus Vaccine Quad .5 mL IM 6+ MO 2018-06-12 00:00:00 Completed [facility] Influenza Virus Vaccine Quad .5 mL IM 6+ MO 2018-06-12 00:00:00 Completed [facility] Influenza Virus Vaccine Quad .5 mL IM 6+ MO 2018-06-12 00:00:00 Completed [facility] Influenza Virus Vaccine Quad .5 mL IM 6+ MO 2018-06-12 00:00:00 Completed [facility] Influenza Virus Vaccine Quad .5 mL IM 6+ MO 2018-06-12 00:00:00 Completed [facility] Influenza Virus Vaccine Quad .5 mL IM 6+ MO 2018-06-12 00:00:00 Completed [facility] Influenza Virus Vaccine Quad .5 mL IM 6+ MO 2018-06-12 00:00:00 Completed [facility] Influenza Virus Vaccine Quad .5 mL IM 6+ MO 2018-06-12 00:00:00 Completed [facility] Influenza Virus Vaccine Quad .5 mL IM 6+ MO 2018-06-12 00:00:00 Completed [facility] Influenza Virus Vaccine Quad .5 mL IM 6+ MO 2018-06-12 00:00:00 Completed [facility] Influenza Virus Vaccine Quad .5 mL IM 6+ MO 2018-06-12 00:00:00 Completed [facility] Influenza Virus Vaccine Quad .5 mL IM 6+ MO 2018-06-12 00:00:00 Completed [facility] Influenza Virus Vaccine Quad .5 mL IM 6+ MO 2018-06-12 00:00:00 Completed [facility] Influenza Virus Vaccine Quad .5 mL IM 6+ MO 2018-06-12 00:00:00 Completed [facility] Influenza Virus Vaccine Quad .5 mL IM 6+ MO 2018-06-12 00:00:00 Completed [facility] Influenza Virus Vaccine Quad .5 mL IM 6+ MO 2018-06-12 00:00:00 Completed [facility] Influenza Virus Vaccine Quad .5 mL IM 6+ MO 2018-06-12 00:00:00 Completed [facility] Influenza Virus Vaccine Quad .5 mL IM 6+ MO 2018-06-12 00:00:00 Completed [facility] Influenza Virus Vaccine Quad .5 mL IM 6+ MO 2018-06-12 00:00:00 Completed [facility] Influenza Virus Vaccine Quad .5 mL IM 6+ MO 2018-06-12 00:00:00 Completed [facility] Influenza Virus Vaccine Quad .5 mL IM 6+ MO 2018-06-12 00:00:00 Completed [facility] Influenza Virus Vaccine Quad .5 mL IM 6+ MO 2018-06-12 00:00:00 Completed [facility] Influenza Virus Vaccine Quad .5 mL IM 6+ MO 2018-06-12 00:00:00 Completed [facility] Influenza Virus Vaccine Quad .5 mL IM 6+ MO 2018-06-12 00:00:00 Completed [facility] Influenza Virus Vaccine Quad .5 mL IM 6+ MO 2018-06-12 00:00:00 Completed [facility] Influenza Virus Vaccine Quad .5 mL IM 6+ MO 2018-06-12 00:00:00 Completed [facility] Influenza Virus Vaccine Quad .5 mL IM 6+ MO 2018-06-12 00:00:00 Completed [facility] Influenza Virus Vaccine Quad .5 mL IM 6+ MO 2018-06-12 00:00:00 Completed [facility] Influenza Virus Vaccine Quad .5 mL IM 6+ MO 2018-06-12 00:00:00 Completed [facility] Influenza Virus Vaccine Quad .5 mL IM 6+ MO 2018-06-12 00:00:00 Completed [facility] Influenza Virus Vaccine Quad .5 mL IM 6+ MO 2018-06-12 00:00:00 Completed [facility] Influenza Virus Vaccine Quad .5 mL IM 6+ MO 2018-06-12 00:00:00 Completed [facility] Influenza Virus Vaccine Nasal 2015-04-27 00:00:00 Completed [facility] Influenza Virus Vaccine Nasal 2015-04-27 00:00:00 Completed [facility] Influenza Virus Vaccine Nasal 2015-04-27 00:00:00 Completed [facility] Influenza Virus Vaccine Nasal 2015-04-27 00:00:00 Completed [facility] Influenza Virus Vaccine Nasal 2015-04-27 00:00:00 Completed [facility] Influenza Virus Vaccine Nasal 2015-04-27 00:00:00 Completed [facility] Influenza Virus Vaccine Nasal 2015-04-27 00:00:00 Completed [facility] Influenza Virus Vaccine Nasal 2015-04-27 00:00:00 Completed [facility] Influenza Virus Vaccine Nasal 2015-04-27 00:00:00 Completed [facility] Influenza Virus Vaccine Nasal 2015-04-27 00:00:00 Completed [facility] Influenza Virus Vaccine Nasal 2015-04-27 00:00:00 Completed [facility] Influenza Virus Vaccine Nasal 2015-04-27 00:00:00 Completed [facility] Influenza Virus Vaccine Nasal 2015-04-27 00:00:00 Completed [facility] Influenza Virus Vaccine Nasal 2015-04-27 00:00:00 Completed [facility] Influenza Virus Vaccine Nasal 2015-04-27 00:00:00 Completed [facility] Influenza Virus Vaccine Nasal 2015-04-27 00:00:00 Completed [facility] Influenza Virus Vaccine Nasal 2015-04-27 00:00:00 Completed [facility] Influenza Virus Vaccine Nasal 2015-04-27 00:00:00 Completed [facility] Influenza Virus Vaccine Nasal 2015-04-27 00:00:00 Completed [facility] Influenza Virus Vaccine Nasal 2015-04-27 00:00:00 Completed [facility] Influenza Virus Vaccine Nasal 2015-04-27 00:00:00 Completed [facility] Influenza Virus Vaccine Nasal 2015-04-27 00:00:00 Completed [facility] Influenza Virus Vaccine Nasal 2015-04-27 00:00:00 Completed [facility] Influenza Virus Vaccine Nasal 2015-04-27 00:00:00 Completed [facility] Influenza Virus Vaccine Nasal 2015-04-27 00:00:00 Completed [facility] Influenza Virus Vaccine Nasal 2015-04-27 00:00:00 Completed [facility] Influenza Virus Vaccine Nasal 2015-04-27 00:00:00 Completed [facility] Influenza Virus Vaccine Nasal 2015-04-27 00:00:00 Completed [facility] Influenza Virus Vaccine Nasal 2015-04-27 00:00:00 Completed [facility] Influenza Virus Vaccine Nasal 2015-04-27 00:00:00 Completed [facility] Influenza Virus Vaccine Nasal 2015-04-27 00:00:00 Completed [facility] Influenza Virus Vaccine Nasal 2015-04-27 00:00:00 Completed [facility] Influenza Virus Vaccine Nasal 2015-04-27 00:00:00 Completed [facility] Influenza Virus Vaccine Nasal 2015-04-27 00:00:00 Completed [facility] Influenza Virus Vaccine Nasal 2015-04-27 00:00:00 Completed [facility] Influenza Virus Vaccine Nasal 2015-04-27 00:00:00 Completed [facility] HPV 2015-01-07 00:00:00 Completed [facility] Meningococcal Oligosaccharide (groups A, C, Y and W-135) conjugate vaccine (MCV4O) 2015-01-07 00:00:00 Completed [facility] HPV 2015-01-07 00:00:00 Completed [facility] Meningococcal Oligosaccharide (groups A, C, Y and W-135) conjugate vaccine (MCV4O) 2015-01-07 00:00:00 Completed [facility] HPV 2015-01-07 00:00:00 Completed [facility] Meningococcal Oligosaccharide (groups A, C, Y and W-135) conjugate vaccine (MCV4O) 2015-01-07 00:00:00 Completed [facility] HPV 2015-01-07 00:00:00 Completed [facility] Meningococcal Oligosaccharide (groups A, C, Y and W-135) conjugate vaccine (MCV4O) 2015-01-07 00:00:00 Completed [facility] HPV 2015-01-07 00:00:00 Completed [facility] Meningococcal Oligosaccharide (groups A, C, Y and W-135) conjugate vaccine (MCV4O) 2015-01-07 00:00:00 Completed [facility] HPV 2015-01-07 00:00:00 Completed [facility] Meningococcal Oligosaccharide (groups A, C, Y and W-135) conjugate vaccine (MCV4O) 2015-01-07 00:00:00 Completed [facility] HPV 2015-01-07 00:00:00 Completed [facility] Meningococcal Oligosaccharide (groups A, C, Y and W-135) conjugate vaccine (MCV4O) 2015-01-07 00:00:00 Completed [facility] HPV 2015-01-07 00:00:00 Completed [facility] Meningococcal Oligosaccharide (groups A, C, Y and W-135) conjugate vaccine (MCV4O) 2015-01-07 00:00:00 Completed [facility] HPV 2015-01-07 00:00:00 Completed [facility] Meningococcal Oligosaccharide (groups A, C, Y and W-135) conjugate vaccine (MCV4O) 2015-01-07 00:00:00 Completed [facility] HPV 2015-01-07 00:00:00 Completed [facility] Meningococcal Oligosaccharide (groups A, C, Y and W-135) conjugate vaccine (MCV4O) 2015-01-07 00:00:00 Completed [facility] HPV 2015-01-07 00:00:00 Completed [facility] Meningococcal Oligosaccharide (groups A, C, Y and W-135) conjugate vaccine (MCV4O) 2015-01-07 00:00:00 Completed [facility] HPV 2015-01-07 00:00:00 Completed [facility] Meningococcal Oligosaccharide (groups A, C, Y and W-135) conjugate vaccine (MCV4O) 2015-01-07 00:00:00 Completed [facility] HPV 2015-01-07 00:00:00 Completed [facility] Meningococcal Oligosaccharide (groups A, C, Y and W-135) conjugate vaccine (MCV4O) 2015-01-07 00:00:00 Completed [facility] HPV 2015-01-07 00:00:00 Completed [facility] Meningococcal Oligosaccharide (groups A, C, Y and W-135) conjugate vaccine (MCV4O) 2015-01-07 00:00:00 Completed [facility] HPV 2015-01-07 00:00:00 Completed [facility] Meningococcal Oligosaccharide (groups A, C, Y and W-135) conjugate vaccine (MCV4O) 2015-01-07 00:00:00 Completed [facility] HPV 2015-01-07 00:00:00 Completed [facility] Meningococcal Oligosaccharide (groups A, C, Y and W-135) conjugate vaccine (MCV4O) 2015-01-07 00:00:00 Completed [facility] HPV 2015-01-07 00:00:00 Completed [facility] Meningococcal Oligosaccharide (groups A, C, Y and W-135) conjugate vaccine (MCV4O) 2015-01-07 00:00:00 Completed [facility] HPV 2015-01-07 00:00:00 Completed [facility] Meningococcal Oligosaccharide (groups A, C, Y and W-135) conjugate vaccine (MCV4O) 2015-01-07 00:00:00 Completed [facility] HPV 2015-01-07 00:00:00 Completed [facility] Meningococcal Oligosaccharide (groups A, C, Y and W-135) conjugate vaccine (MCV4O) 2015-01-07 00:00:00 Completed [facility] HPV 2015-01-07 00:00:00 Completed [facility] Meningococcal Oligosaccharide (groups A, C, Y and W-135) conjugate vaccine (MCV4O) 2015-01-07 00:00:00 Completed [facility] HPV 2015-01-07 00:00:00 Completed [facility] Meningococcal Oligosaccharide (groups A, C, Y and W-135) conjugate vaccine (MCV4O) 2015-01-07 00:00:00 Completed [facility] HPV 2015-01-07 00:00:00 Completed [facility] Meningococcal Oligosaccharide (groups A, C, Y and W-135) conjugate vaccine (MCV4O) 2015-01-07 00:00:00 Completed [facility] HPV 2015-01-07 00:00:00 Completed [facility] Meningococcal Oligosaccharide (groups A, C, Y and W-135) conjugate vaccine (MCV4O) 2015-01-07 00:00:00 Completed [facility] HPV 2015-01-07 00:00:00 Completed [facility] Meningococcal Oligosaccharide (groups A, C, Y and W-135) conjugate vaccine (MCV4O) 2015-01-07 00:00:00 Completed [facility] HPV 2015-01-07 00:00:00 Completed [facility] Meningococcal Oligosaccharide (groups A, C, Y and W-135) conjugate vaccine (MCV4O) 2015-01-07 00:00:00 Completed [facility] HPV 2015-01-07 00:00:00 Completed [facility] Meningococcal Oligosaccharide (groups A, C, Y and W-135) conjugate vaccine (MCV4O) 2015-01-07 00:00:00 Completed [facility] HPV 2015-01-07 00:00:00 Completed [facility] Meningococcal Oligosaccharide (groups A, C, Y and W-135) conjugate vaccine (MCV4O) 2015-01-07 00:00:00 Completed [facility] HPV 2015-01-07 00:00:00 Completed [facility] Meningococcal Oligosaccharide (groups A, C, Y and W-135) conjugate vaccine (MCV4O) 2015-01-07 00:00:00 Completed [facility] HPV 2015-01-07 00:00:00 Completed [facility] Meningococcal Oligosaccharide (groups A, C, Y and W-135) conjugate vaccine (MCV4O) 2015-01-07 00:00:00 Completed [facility] HPV 2015-01-07 00:00:00 Completed [facility] Meningococcal Oligosaccharide (groups A, C, Y and W-135) conjugate vaccine (MCV4O) 2015-01-07 00:00:00 Completed [facility] HPV 2015-01-07 00:00:00 Completed [facility] Meningococcal Oligosaccharide (groups A, C, Y and W-135) conjugate vaccine (MCV4O) 2015-01-07 00:00:00 Completed [facility] HPV 2015-01-07 00:00:00 Completed [facility] Meningococcal Oligosaccharide (groups A, C, Y and W-135) conjugate vaccine (MCV4O) 2015-01-07 00:00:00 Completed [facility] HPV 2015-01-07 00:00:00 Completed [facility] Meningococcal Oligosaccharide (groups A, C, Y and W-135) conjugate vaccine (MCV4O) 2015-01-07 00:00:00 Completed [facility] HPV 2015-01-07 00:00:00 Completed [facility] Meningococcal Oligosaccharide (groups A, C, Y and W-135) conjugate vaccine (MCV4O) 2015-01-07 00:00:00 Completed [facility] HPV 2015-01-07 00:00:00 Completed [facility] Meningococcal Oligosaccharide (groups A, C, Y and W-135) conjugate vaccine (MCV4O) 2015-01-07 00:00:00 Completed [facility] HPV 2015-01-07 00:00:00 Completed [facility] Meningococcal Oligosaccharide (groups A, C, Y and W-135) conjugate vaccine (MCV4O) 2015-01-07 00:00:00 Completed [facility] Meningococcal Oligosaccharide (groups A, C, Y and W-135) conjugate vaccine (MCV4O) 2014-02-23 00:00:00 Completed [facility] Influenza Virus Vaccine Quad Nasal 2014-02-23 00:00:00 Completed [facility] Meningococcal Oligosaccharide (groups A, C, Y and W-135) conjugate vaccine (MCV4O) 2014-02-23 00:00:00 Completed [facility] Influenza Virus Vaccine Quad Nasal 2014-02-23 00:00:00 Completed [facility] Meningococcal Oligosaccharide (groups A, C, Y and W-135) conjugate vaccine (MCV4O) 2014-02-23 00:00:00 Completed [facility] Influenza Virus Vaccine Quad Nasal 2014-02-23 00:00:00 Completed [facility] Meningococcal Oligosaccharide (groups A, C, Y and W-135) conjugate vaccine (MCV4O) 2014-02-23 00:00:00 Completed [facility] Influenza Virus Vaccine Quad Nasal 2014-02-23 00:00:00 Completed [facility] Meningococcal Oligosaccharide (groups A, C, Y and W-135) conjugate vaccine (MCV4O) 2014-02-23 00:00:00 Completed [facility] Influenza Virus Vaccine Quad Nasal 2014-02-23 00:00:00 Completed [facility] Meningococcal Oligosaccharide (groups A, C, Y and W-135) conjugate vaccine (MCV4O) 2014-02-23 00:00:00 Completed [facility] Influenza Virus Vaccine Quad Nasal 2014-02-23 00:00:00 Completed [facility] Meningococcal Oligosaccharide (groups A, C, Y and W-135) conjugate vaccine (MCV4O) 2014-02-23 00:00:00 Completed [facility] Influenza Virus Vaccine Quad Nasal 2014-02-23 00:00:00 Completed [facility] Meningococcal Oligosaccharide (groups A, C, Y and W-135) conjugate vaccine (MCV4O) 2014-02-23 00:00:00 Completed [facility] Influenza Virus Vaccine Quad Nasal 2014-02-23 00:00:00 Completed [facility] Meningococcal Oligosaccharide (groups A, C, Y and W-135) conjugate vaccine (MCV4O) 2014-02-23 00:00:00 Completed [facility] Influenza Virus Vaccine Quad Nasal 2014-02-23 00:00:00 Completed [facility] Meningococcal Oligosaccharide (groups A, C, Y and W-135) conjugate vaccine (MCV4O) 2014-02-23 00:00:00 Completed [facility] Influenza Virus Vaccine Quad Nasal 2014-02-23 00:00:00 Completed [facility] Meningococcal Oligosaccharide (groups A, C, Y and W-135) conjugate vaccine (MCV4O) 2014-02-23 00:00:00 Completed [facility] Influenza Virus Vaccine Quad Nasal 2014-02-23 00:00:00 Completed [facility] Meningococcal Oligosaccharide (groups A, C, Y and W-135) conjugate vaccine (MCV4O) 2014-02-23 00:00:00 Completed [facility] Influenza Virus Vaccine Quad Nasal 2014-02-23 00:00:00 Completed [facility] Meningococcal Oligosaccharide (groups A, C, Y and W-135) conjugate vaccine (MCV4O) 2014-02-23 00:00:00 Completed [facility] Influenza Virus Vaccine Quad Nasal 2014-02-23 00:00:00 Completed [facility] Meningococcal Oligosaccharide (groups A, C, Y and W-135) conjugate vaccine (MCV4O) 2014-02-23 00:00:00 Completed [facility] Influenza Virus Vaccine Quad Nasal 2014-02-23 00:00:00 Completed [facility] Meningococcal Oligosaccharide (groups A, C, Y and W-135) conjugate vaccine (MCV4O) 2014-02-23 00:00:00 Completed [facility] Influenza Virus Vaccine Quad Nasal 2014-02-23 00:00:00 Completed [facility] Meningococcal Oligosaccharide (groups A, C, Y and W-135) conjugate vaccine (MCV4O) 2014-02-23 00:00:00 Completed [facility] Influenza Virus Vaccine Quad Nasal 2014-02-23 00:00:00 Completed [facility] Meningococcal Oligosaccharide (groups A, C, Y and W-135) conjugate vaccine (MCV4O) 2014-02-23 00:00:00 Completed [facility] Influenza Virus Vaccine Quad Nasal 2014-02-23 00:00:00 Completed [facility] Meningococcal Oligosaccharide (groups A, C, Y and W-135) conjugate vaccine (MCV4O) 2014-02-23 00:00:00 Completed [facility] Influenza Virus Vaccine Quad Nasal 2014-02-23 00:00:00 Completed [facility] Meningococcal Oligosaccharide (groups A, C, Y and W-135) conjugate vaccine (MCV4O) 2014-02-23 00:00:00 Completed [facility] Influenza Virus Vaccine Quad Nasal 2014-02-23 00:00:00 Completed [facility] Meningococcal Oligosaccharide (groups A, C, Y and W-135) conjugate vaccine (MCV4O) 2014-02-23 00:00:00 Completed [facility] Influenza Virus Vaccine Quad Nasal 2014-02-23 00:00:00 Completed [facility] Meningococcal Oligosaccharide (groups A, C, Y and W-135) conjugate vaccine (MCV4O) 2014-02-23 00:00:00 Completed [facility] Influenza Virus Vaccine Quad Nasal 2014-02-23 00:00:00 Completed [facility] Meningococcal Oligosaccharide (groups A, C, Y and W-135) conjugate vaccine (MCV4O) 2014-02-23 00:00:00 Completed [facility] Influenza Virus Vaccine Quad Nasal 2014-02-23 00:00:00 Completed [facility] Meningococcal Oligosaccharide (groups A, C, Y and W-135) conjugate vaccine (MCV4O) 2014-02-23 00:00:00 Completed [facility] Influenza Virus Vaccine Quad Nasal 2014-02-23 00:00:00 Completed [facility] Meningococcal Oligosaccharide (groups A, C, Y and W-135) conjugate vaccine (MCV4O) 2014-02-23 00:00:00 Completed [facility] Influenza Virus Vaccine Quad Nasal 2014-02-23 00:00:00 Completed [facility] Meningococcal Oligosaccharide (groups A, C, Y and W-135) conjugate vaccine (MCV4O) 2014-02-23 00:00:00 Completed [facility] Influenza Virus Vaccine Quad Nasal 2014-02-23 00:00:00 Completed [facility] Meningococcal Oligosaccharide (groups A, C, Y and W-135) conjugate vaccine (MCV4O) 2014-02-23 00:00:00 Completed [facility] Influenza Virus Vaccine Quad Nasal 2014-02-23 00:00:00 Completed [facility] Meningococcal Oligosaccharide (groups A, C, Y and W-135) conjugate vaccine (MCV4O) 2014-02-23 00:00:00 Completed [facility] Influenza Virus Vaccine Quad Nasal 2014-02-23 00:00:00 Completed [facility] Meningococcal Oligosaccharide (groups A, C, Y and W-135) conjugate vaccine (MCV4O) 2014-02-23 00:00:00 Completed [facility] Influenza Virus Vaccine Quad Nasal 2014-02-23 00:00:00 Completed [facility] Meningococcal Oligosaccharide (groups A, C, Y and W-135) conjugate vaccine (MCV4O) 2014-02-23 00:00:00 Completed [facility] Influenza Virus Vaccine Quad Nasal 2014-02-23 00:00:00 Completed [facility] Meningococcal Oligosaccharide (groups A, C, Y and W-135) conjugate vaccine (MCV4O) 2014-02-23 00:00:00 Completed [facility] Influenza Virus Vaccine Quad Nasal 2014-02-23 00:00:00 Completed [facility] Meningococcal Oligosaccharide (groups A, C, Y and W-135) conjugate vaccine (MCV4O) 2014-02-23 00:00:00 Completed [facility] Influenza Virus Vaccine Quad Nasal 2014-02-23 00:00:00 Completed [facility] Meningococcal Oligosaccharide (groups A, C, Y and W-135) conjugate vaccine (MCV4O) 2014-02-23 00:00:00 Completed [facility] Influenza Virus Vaccine Quad Nasal 2014-02-23 00:00:00 Completed [facility] Meningococcal Oligosaccharide (groups A, C, Y and W-135) conjugate vaccine (MCV4O) 2014-02-23 00:00:00 Completed [facility] Influenza Virus Vaccine Quad Nasal 2014-02-23 00:00:00 Completed [facility] Meningococcal Oligosaccharide (groups A, C, Y and W-135) conjugate vaccine (MCV4O) 2014-02-23 00:00:00 Completed [facility] Influenza Virus Vaccine Quad Nasal 2014-02-23 00:00:00 Completed [facility] Meningococcal Oligosaccharide (groups A, C, Y and W-135) conjugate vaccine (MCV4O) 2014-02-23 00:00:00 Completed [facility] Influenza Virus Vaccine Quad Nasal 2014-02-23 00:00:00 Completed [facility] Meningococcal Oligosaccharide (groups A, C, Y and W-135) conjugate vaccine (MCV4O) 2014-02-23 00:00:00 Completed [facility] Influenza Virus Vaccine Quad Nasal 2014-02-23 00:00:00 Completed [facility] HPV 2012-01-01 00:00:00 Completed [facility] Influenza Virus Vaccine - Whole 2012-01-01 00:00:00 Completed [facility] HPV 2012-01-01 00:00:00 Completed [facility] Influenza Virus Vaccine - Whole 2012-01-01 00:00:00 Completed [facility] HPV 2012-01-01 00:00:00 Completed [facility] Influenza Virus Vaccine - Whole 2012-01-01 00:00:00 Completed [facility] HPV 2012-01-01 00:00:00 Completed [facility] Influenza Virus Vaccine - Whole 2012-01-01 00:00:00 Completed [facility] HPV 2012-01-01 00:00:00 Completed [facility] Influenza Virus Vaccine - Whole 2012-01-01 00:00:00 Completed [facility] HPV 2012-01-01 00:00:00 Completed [facility] Influenza Virus Vaccine - Whole 2012-01-01 00:00:00 Completed [facility] HPV 2012-01-01 00:00:00 Completed [facility] Influenza Virus Vaccine - Whole 2012-01-01 00:00:00 Completed [facility] HPV 2012-01-01 00:00:00 Completed [facility] Influenza Virus Vaccine - Whole 2012-01-01 00:00:00 Completed [facility] HPV 2012-01-01 00:00:00 Completed [facility] Influenza Virus Vaccine - Whole 2012-01-01 00:00:00 Completed [facility] HPV 2012-01-01 00:00:00 Completed [facility] Influenza Virus Vaccine - Whole 2012-01-01 00:00:00 Completed [facility] HPV 2012-01-01 00:00:00 Completed [facility] Influenza Virus Vaccine - Whole 2012-01-01 00:00:00 Completed [facility] HPV 2012-01-01 00:00:00 Completed [facility] Influenza Virus Vaccine - Whole 2012-01-01 00:00:00 Completed [facility] HPV 2012-01-01 00:00:00 Completed [facility] Influenza Virus Vaccine - Whole 2012-01-01 00:00:00 Completed [facility] HPV 2012-01-01 00:00:00 Completed [facility] Influenza Virus Vaccine - Whole 2012-01-01 00:00:00 Completed [facility] HPV 2012-01-01 00:00:00 Completed [facility] Influenza Virus Vaccine - Whole 2012-01-01 00:00:00 Completed [facility] HPV 2012-01-01 00:00:00 Completed [facility] Influenza Virus Vaccine - Whole 2012-01-01 00:00:00 Completed [facility] HPV 2012-01-01 00:00:00 Completed [facility] Influenza Virus Vaccine - Whole 2012-01-01 00:00:00 Completed [facility] HPV 2012-01-01 00:00:00 Completed [facility] Influenza Virus Vaccine - Whole 2012-01-01 00:00:00 Completed [facility] HPV 2012-01-01 00:00:00 Completed [facility] Influenza Virus Vaccine - Whole 2012-01-01 00:00:00 Completed [facility] HPV 2012-01-01 00:00:00 Completed [facility] Influenza Virus Vaccine - Whole 2012-01-01 00:00:00 Completed [facility] HPV 2012-01-01 00:00:00 Completed [facility] Influenza Virus Vaccine - Whole 2012-01-01 00:00:00 Completed [facility] HPV 2012-01-01 00:00:00 Completed [facility] Influenza Virus Vaccine - Whole 2012-01-01 00:00:00 Completed [facility] HPV 2012-01-01 00:00:00 Completed [facility] Influenza Virus Vaccine - Whole 2012-01-01 00:00:00 Completed [facility] HPV 2012-01-01 00:00:00 Completed [facility] Influenza Virus Vaccine - Whole 2012-01-01 00:00:00 Completed [facility] HPV 2012-01-01 00:00:00 Completed [facility] Influenza Virus Vaccine - Whole 2012-01-01 00:00:00 Completed [facility] HPV 2012-01-01 00:00:00 Completed [facility] Influenza Virus Vaccine - Whole 2012-01-01 00:00:00 Completed [facility] HPV 2012-01-01 00:00:00 Completed [facility] Influenza Virus Vaccine - Whole 2012-01-01 00:00:00 Completed [facility] HPV 2012-01-01 00:00:00 Completed [facility] Influenza Virus Vaccine - Whole 2012-01-01 00:00:00 Completed [facility] HPV 2012-01-01 00:00:00 Completed [facility] Influenza Virus Vaccine - Whole 2012-01-01 00:00:00 Completed [facility] HPV 2012-01-01 00:00:00 Completed [facility] Influenza Virus Vaccine - Whole 2012-01-01 00:00:00 Completed [facility] HPV 2012-01-01 00:00:00 Completed [facility] Influenza Virus Vaccine - Whole 2012-01-01 00:00:00 Completed [facility] HPV 2012-01-01 00:00:00 Completed [facility] Influenza Virus Vaccine - Whole 2012-01-01 00:00:00 Completed [facility] HPV 2012-01-01 00:00:00 Completed [facility] Influenza Virus Vaccine - Whole 2012-01-01 00:00:00 Completed [facility] HPV 2012-01-01 00:00:00 Completed [facility] Influenza Virus Vaccine - Whole 2012-01-01 00:00:00 Completed [facility] HPV 2012-01-01 00:00:00 Completed [facility] Influenza Virus Vaccine - Whole 2012-01-01 00:00:00 Completed [facility] HPV 2012-01-01 00:00:00 Completed [facility] Influenza Virus Vaccine - Whole 2012-01-01 00:00:00 Completed [facility] HPV Unspecified 2011-10-31 00:00:00 Completed [facility] HPV Unspecified 2011-10-31 00:00:00 Completed [facility] HPV Unspecified 2011-10-31 00:00:00 Completed [facility] HPV Unspecified 2011-10-31 00:00:00 Completed [facility] HPV Unspecified 2011-10-31 00:00:00 Completed [facility] HPV Unspecified 2011-10-31 00:00:00 Completed [facility] HPV Unspecified 2011-10-31 00:00:00 Completed [facility] HPV Unspecified 2011-10-31 00:00:00 Completed [facility] HPV Unspecified 2011-10-31 00:00:00 Completed [facility] HPV Unspecified 2011-10-31 00:00:00 Completed [facility] HPV Unspecified 2011-10-31 00:00:00 Completed [facility] HPV Unspecified 2011-10-31 00:00:00 Completed [facility] HPV Unspecified 2011-10-31 00:00:00 Completed [facility] HPV Unspecified 2011-10-31 00:00:00 Completed [facility] HPV Unspecified 2011-10-31 00:00:00 Completed [facility] HPV Unspecified 2011-10-31 00:00:00 Completed [facility] HPV Unspecified 2011-10-31 00:00:00 Completed [facility] HPV Unspecified 2011-10-31 00:00:00 Completed [facility] HPV Unspecified 2011-10-31 00:00:00 Completed [facility] HPV Unspecified 2011-10-31 00:00:00 Completed [facility] HPV Unspecified 2011-10-31 00:00:00 Completed [facility] HPV Unspecified 2011-10-31 00:00:00 Completed [facility] HPV Unspecified 2011-10-31 00:00:00 Completed [facility] HPV Unspecified 2011-10-31 00:00:00 Completed [facility] HPV Unspecified 2011-10-31 00:00:00 Completed [facility] HPV Unspecified 2011-10-31 00:00:00 Completed [facility] HPV Unspecified 2011-10-31 00:00:00 Completed [facility] HPV Unspecified 2011-10-31 00:00:00 Completed [facility] HPV Unspecified 2011-10-31 00:00:00 Completed [facility] HPV Unspecified 2011-10-31 00:00:00 Completed [facility] HPV Unspecified 2011-10-31 00:00:00 Completed [facility] HPV Unspecified 2011-10-31 00:00:00 Completed [facility] HPV Unspecified 2011-10-31 00:00:00 Completed [facility] HPV Unspecified 2011-10-31 00:00:00 Completed [facility] HPV Unspecified 2011-10-31 00:00:00 Completed [facility] HPV Unspecified 2011-10-31 00:00:00 Completed [facility] HPV Unspecified 2011-05-18 00:00:00 Completed [facility] HPV Unspecified 2011-05-18 00:00:00 Completed [facility] HPV Unspecified 2011-05-18 00:00:00 Completed [facility] HPV Unspecified 2011-05-18 00:00:00 Completed [facility] HPV Unspecified 2011-05-18 00:00:00 Completed [facility] HPV Unspecified 2011-05-18 00:00:00 Completed [facility] HPV Unspecified 2011-05-18 00:00:00 Completed [facility] HPV Unspecified 2011-05-18 00:00:00 Completed [facility] [facility] HPV Unspecified 2011-05-18 00:00:00 Completed [facility] HPV Unspecified 2011-05-18 00:00:00 Completed [facility] HPV Unspecified 2011-05-18 00:00:00 Completed [facility] HPV Unspecified 2011-05-18 00:00:00 Completed [facility] HPV Unspecified 2011-05-18 00:00:00 Completed [facility] HPV Unspecified 2011-05-18 00:00:00 Completed [facility] HPV Unspecified 2011-05-18 00:00:00 Completed [facility] HPV Unspecified 2011-05-18 00:00:00 Completed [facility] HPV Unspecified 2011-05-18 00:00:00 Completed [facility] HPV Unspecified 2011-05-18 00:00:00 Completed [facility] HPV Unspecified 2011-05-18 00:00:00 Completed [facility] HPV Unspecified 2011-05-18 00:00:00 Completed [facility] HPV Unspecified 2011-05-18 00:00:00 Completed [facility] HPV Unspecified 2011-05-18 00:00:00 Completed [facility] HPV Unspecified 2011-05-18 00:00:00 Completed [facility] HPV Unspecified 2011-05-18 00:00:00 Completed [facility] HPV Unspecified 2011-05-18 00:00:00 Completed [facility] HPV Unspecified 2011-05-18 00:00:00 Completed [facility] HPV Unspecified 2011-05-18 00:00:00 Completed [facility] HPV Unspecified 2011-05-18 00:00:00 Completed [facility] HPV Unspecified 2011-05-18 00:00:00 Completed [facility] HPV Unspecified 2011-05-18 00:00:00 Completed [facility] HPV Unspecified 2011-05-18 00:00:00 Completed [facility] HPV Unspecified 2011-05-18 00:00:00 Completed [facility] HPV Unspecified 2011-05-18 00:00:00 Completed [facility] HPV Unspecified 2011-05-18 00:00:00 Completed [facility] HPV Unspecified 2011-05-18 00:00:00 Completed [facility] HPV Unspecified 2011-05-18 00:00:00 Completed [facility] Meningococcal Polysaccharide (groups A, C, Y and W-135) conjugate vaccine (MCV4P) 2009-12-01 00:00:00 Completed [facility] TDAP 2009-12-01 00:00:00 Completed [facility] Meningococcal Polysaccharide (groups A, C, Y and W-135) conjugate vaccine (MCV4P) 2009-12-01 00:00:00 Completed [facility] TDAP 2009-12-01 00:00:00 Completed [facility] Meningococcal Polysaccharide (groups A, C, Y and W-135) conjugate vaccine (MCV4P) 2009-12-01 00:00:00 Completed [facility] TDAP 2009-12-01 00:00:00 Completed [facility] Meningococcal Polysaccharide (groups A, C, Y and W-135) conjugate vaccine (MCV4P) 2009-12-01 00:00:00 Completed [facility] TDAP 2009-12-01 00:00:00 Completed [facility] Meningococcal Polysaccharide (groups A, C, Y and W-135) conjugate vaccine (MCV4P) 2009-12-01 00:00:00 Completed [facility] TDAP 2009-12-01 00:00:00 Completed [facility] Meningococcal Polysaccharide (groups A, C, Y and W-135) conjugate vaccine (MCV4P) 2009-12-01 00:00:00 Completed [facility] TDAP 2009-12-01 00:00:00 Completed [facility] Meningococcal Polysaccharide (groups A, C, Y and W-135) conjugate vaccine (MCV4P) 2009-12-01 00:00:00 Completed [facility] TDAP 2009-12-01 00:00:00 Completed [facility] Meningococcal Polysaccharide (groups A, C, Y and W-135) conjugate vaccine (MCV4P) 2009-12-01 00:00:00 Completed [facility] TDAP 2009-12-01 00:00:00 Completed [facility] Meningococcal Polysaccharide (groups A, C, Y and W-135) conjugate vaccine (MCV4P) 2009-12-01 00:00:00 Completed [facility] TDAP 2009-12-01 00:00:00 Completed [facility] Meningococcal Polysaccharide (groups A, C, Y and W-135) conjugate vaccine (MCV4P) 2009-12-01 00:00:00 Completed [facility] TDAP 2009-12-01 00:00:00 Completed [facility] Meningococcal Polysaccharide (groups A, C, Y and W-135) conjugate vaccine (MCV4P) 2009-12-01 00:00:00 Completed [facility] TDAP 2009-12-01 00:00:00 Completed [facility] Meningococcal Polysaccharide (groups A, C, Y and W-135) conjugate vaccine (MCV4P) 2009-12-01 00:00:00 Completed [facility] TDAP 2009-12-01 00:00:00 Completed [facility] Meningococcal Polysaccharide (groups A, C, Y and W-135) conjugate vaccine (MCV4P) 2009-12-01 00:00:00 Completed [facility] TDAP 2009-12-01 00:00:00 Completed [facility] Meningococcal Polysaccharide (groups A, C, Y and W-135) conjugate vaccine (MCV4P) 2009-12-01 00:00:00 Completed [facility] TDAP 2009-12-01 00:00:00 Completed [facility] Meningococcal Polysaccharide (groups A, C, Y and W-135) conjugate vaccine (MCV4P) 2009-12-01 00:00:00 Completed [facility] TDAP 2009-12-01 00:00:00 Completed [facility] Meningococcal Polysaccharide (groups A, C, Y and W-135) conjugate vaccine (MCV4P) 2009-12-01 00:00:00 Completed [facility] TDAP 2009-12-01 00:00:00 Completed [facility] Meningococcal Polysaccharide (groups A, C, Y and W-135) conjugate vaccine (MCV4P) 2009-12-01 00:00:00 Completed [facility] TDAP 2009-12-01 00:00:00 Completed [facility] Meningococcal Polysaccharide (groups A, C, Y and W-135) conjugate vaccine (MCV4P) 2009-12-01 00:00:00 Completed [facility] TDAP 2009-12-01 00:00:00 Completed [facility] Meningococcal Polysaccharide (groups A, C, Y and W-135) conjugate vaccine (MCV4P) 2009-12-01 00:00:00 Completed [facility] TDAP 2009-12-01 00:00:00 Completed [facility] Meningococcal Polysaccharide (groups A, C, Y and W-135) conjugate vaccine (MCV4P) 2009-12-01 00:00:00 Completed [facility] TDAP 2009-12-01 00:00:00 Completed [facility] Meningococcal Polysaccharide (groups A, C, Y and W-135) conjugate vaccine (MCV4P) 2009-12-01 00:00:00 Completed [facility] TDAP 2009-12-01 00:00:00 Completed [facility] Meningococcal Polysaccharide (groups A, C, Y and W-135) conjugate vaccine (MCV4P) 2009-12-01 00:00:00 Completed [facility] TDAP 2009-12-01 00:00:00 Completed [facility] Meningococcal Polysaccharide (groups A, C, Y and W-135) conjugate vaccine (MCV4P) 2009-12-01 00:00:00 Completed [facility] TDAP 2009-12-01 00:00:00 Completed [facility] Meningococcal Polysaccharide (groups A, C, Y and W-135) conjugate vaccine (MCV4P) 2009-12-01 00:00:00 Completed [facility] TDAP 2009-12-01 00:00:00 Completed [facility] Meningococcal Polysaccharide (groups A, C, Y and W-135) conjugate vaccine (MCV4P) 2009-12-01 00:00:00 Completed [facility] TDAP 2009-12-01 00:00:00 Completed [facility] Meningococcal Polysaccharide (groups A, C, Y and W-135) conjugate vaccine (MCV4P) 2009-12-01 00:00:00 Completed [facility] TDAP 2009-12-01 00:00:00 Completed [facility] Meningococcal Polysaccharide (groups A, C, Y and W-135) conjugate vaccine (MCV4P) 2009-12-01 00:00:00 Completed [facility] TDAP 2009-12-01 00:00:00 Completed [facility] Meningococcal Polysaccharide (groups A, C, Y and W-135) conjugate vaccine (MCV4P) 2009-12-01 00:00:00 Completed [facility] TDAP 2009-12-01 00:00:00 Completed [facility] Meningococcal Polysaccharide (groups A, C, Y and W-135) conjugate vaccine (MCV4P) 2009-12-01 00:00:00 Completed [facility] TDAP 2009-12-01 00:00:00 Completed [facility] Meningococcal Polysaccharide (groups A, C, Y and W-135) conjugate vaccine (MCV4P) 2009-12-01 00:00:00 Completed [facility] TDAP 2009-12-01 00:00:00 Completed [facility] Meningococcal Polysaccharide (groups A, C, Y and W-135) conjugate vaccine (MCV4P) 2009-12-01 00:00:00 Completed [facility] TDAP 2009-12-01 00:00:00 Completed [facility] Meningococcal Polysaccharide (groups A, C, Y and W-135) conjugate vaccine (MCV4P) 2009-12-01 00:00:00 Completed [facility] TDAP 2009-12-01 00:00:00 Completed [facility] Meningococcal Polysaccharide (groups A, C, Y and W-135) conjugate vaccine (MCV4P) 2009-12-01 00:00:00 Completed [facility] TDAP 2009-12-01 00:00:00 Completed [facility] Meningococcal Polysaccharide (groups A, C, Y and W-135) conjugate vaccine (MCV4P) 2009-12-01 00:00:00 Completed [facility] TDAP 2009-12-01 00:00:00 Completed [facility] Meningococcal Polysaccharide (groups A, C, Y and W-135) conjugate vaccine (MCV4P) 2009-12-01 00:00:00 Completed [facility] TDAP 2009-12-01 00:00:00 Completed [facility] Meningococcal Polysaccharide (groups A, C, Y and W-135) conjugate vaccine (MCV4P) 2009-12-01 00:00:00 Completed [facility] TDAP 2009-12-01 00:00:00 Completed [facility] HIB 4 Dose Schedule 1998 00:00:00 Completed [facility] IPV 1998 00:00:00 Completed [facility] DTaP, Unspecified Formulation 1998 00:00:00 Completed [facility] Hep B, Adol or Pedi Dosage 1998 00:00:00 Completed [facility] HIB 4 Dose Schedule 1998 00:00:00 Completed [facility] IPV 1998 00:00:00 Completed [facility] DTaP, Unspecified Formulation 1998 00:00:00 Completed [facility] Hep B, Adol or Pedi Dosage 1998 00:00:00 Completed [facility] HIB 4 Dose Schedule 1998 00:00:00 Completed [facility] IPV 1998 00:00:00 Completed [facility] DTaP, Unspecified Formulation 1998 00:00:00 Completed [facility] Hep B, Adol or Pedi Dosage 1998 00:00:00 Completed [facility] HIB 4 Dose Schedule 1998 00:00:00 Completed [facility] IPV 1998 00:00:00 Completed [facility] DTaP, Unspecified Formulation 1998 00:00:00 Completed [facility] Hep B, Adol or Pedi Dosage 1998 00:00:00 Completed [facility] HIB 4 Dose Schedule 1998 00:00:00 Completed [facility] IPV 1998 00:00:00 Completed [facility] DTaP, Unspecified Formulation 1998 00:00:00 Completed [facility] Hep B, Adol or Pedi Dosage 1998 00:00:00 Completed [facility] HIB 4 Dose Schedule 1998 00:00:00 Completed [facility] IPV 1998 00:00:00 Completed [facility] DTaP, Unspecified Formulation 1998 00:00:00 Completed [facility] Hep B, Adol or Pedi Dosage 1998 00:00:00 Completed [facility] HIB 4 Dose Schedule 1998 00:00:00 Completed [facility] IPV 1998 00:00:00 Completed [facility] DTaP, Unspecified Formulation 1998 00:00:00 Completed [facility] Hep B, Adol or Pedi Dosage 1998 00:00:00 Completed [facility] HIB 4 Dose Schedule 1998 00:00:00 Completed [facility] IPV 1998 00:00:00 Completed [facility] DTaP, Unspecified Formulation 1998 00:00:00 Completed [facility] Hep B, Adol or Pedi Dosage 1998 00:00:00 Completed [facility] HIB 4 Dose Schedule 1998 00:00:00 Completed [facility] IPV 1998 00:00:00 Completed [facility] DTaP, Unspecified Formulation 1998 00:00:00 Completed [facility] Hep B, Adol or Pedi Dosage 1998 00:00:00 Completed [facility] HIB 4 Dose Schedule 1998 00:00:00 Completed [facility] IPV 1998 00:00:00 Completed [facility] DTaP, Unspecified Formulation 1998 00:00:00 Completed [facility] Hep B, Adol or Pedi Dosage 1998 00:00:00 Completed [facility] HIB 4 Dose Schedule 1998 00:00:00 Completed [facility] IPV 1998 00:00:00 Completed [facility] DTaP, Unspecified Formulation 1998 00:00:00 Completed [facility] Hep B, Adol or Pedi Dosage 1998 00:00:00 Completed [facility] HIB 4 Dose Schedule 1998 00:00:00 Completed [facility] IPV 1998 00:00:00 Completed [facility] DTaP, Unspecified Formulation 1998 00:00:00 Completed [facility] Hep B, Adol or Pedi Dosage 1998 00:00:00 Completed [facility] HIB 4 Dose Schedule 1998 00:00:00 Completed [facility] IPV 1998 00:00:00 Completed [facility] DTaP, Unspecified Formulation 1998 00:00:00 Completed [facility] Hep B, Adol or Pedi Dosage 1998 00:00:00 Completed [facility] HIB 4 Dose Schedule 1998 00:00:00 Completed [facility] IPV 1998 00:00:00 Completed [facility] DTaP, Unspecified Formulation 1998 00:00:00 Completed [facility] Hep B, Adol or Pedi Dosage 1998 00:00:00 Completed [facility] HIB 4 Dose Schedule 1998 00:00:00 Completed [facility] IPV 1998 00:00:00 Completed [facility] DTaP, Unspecified Formulation 1998 00:00:00 Completed [facility] Hep B, Adol or Pedi Dosage 1998 00:00:00 Completed [facility] HIB 4 Dose Schedule 1998 00:00:00 Completed [facility] IPV 1998 00:00:00 Completed [facility] DTaP, Unspecified Formulation 1998 00:00:00 Completed [facility] Hep B, Adol or Pedi Dosage 1998 00:00:00 Completed [facility] HIB 4 Dose Schedule 1998 00:00:00 Completed [facility] IPV 1998 00:00:00 Completed [facility] DTaP, Unspecified Formulation 1998 00:00:00 Completed [facility] Hep B, Adol or Pedi Dosage 1998 00:00:00 Completed [facility] HIB 4 Dose Schedule 1998 00:00:00 Completed [facility] IPV 1998 00:00:00 Completed [facility] DTaP, Unspecified Formulation 1998 00:00:00 Completed [facility] Hep B, Adol or Pedi Dosage 1998 00:00:00 Completed [facility] HIB 4 Dose Schedule 1998 00:00:00 Completed [facility] IPV 1998 00:00:00 Completed [facility] DTaP, Unspecified Formulation 1998 00:00:00 Completed [facility] Hep B, Adol or Pedi Dosage 1998 00:00:00 Completed [facility] HIB 4 Dose Schedule 1998 00:00:00 Completed [facility] IPV 1998 00:00:00 Completed [facility] DTaP, Unspecified Formulation 1998 00:00:00 Completed [facility] Hep B, Adol or Pedi Dosage 1998 00:00:00 Completed [facility] HIB 4 Dose Schedule 1998 00:00:00 Completed [facility] IPV 1998 00:00:00 Completed [facility] DTaP, Unspecified Formulation 1998 00:00:00 Completed [facility] Hep B, Adol or Pedi Dosage 1998 00:00:00 Completed [facility] HIB 4 Dose Schedule 1998 00:00:00 Completed [facility] IPV 1998 00:00:00 Completed [facility] DTaP, Unspecified Formulation 1998 00:00:00 Completed [facility] Hep B, Adol or Pedi Dosage 1998 00:00:00 Completed [facility] HIB 4 Dose Schedule 1998 00:00:00 Completed [facility] IPV 1998 00:00:00 Completed [facility] DTaP, Unspecified Formulation 1998 00:00:00 Completed [facility] Hep B, Adol or Pedi Dosage 1998 00:00:00 Completed [facility] HIB 4 Dose Schedule 1998 00:00:00 Completed [facility] IPV 1998 00:00:00 Completed [facility] DTaP, Unspecified Formulation 1998 00:00:00 Completed [facility] Hep B, Adol or Pedi Dosage 1998 00:00:00 Completed [facility] HIB 4 Dose Schedule 1998 00:00:00 Completed [facility] IPV 1998 00:00:00 Completed [facility] DTaP, Unspecified Formulation 1998 00:00:00 Completed [facility] Hep B, Adol or Pedi Dosage 1998 00:00:00 Completed [facility] HIB 4 Dose Schedule 1998 00:00:00 Completed [facility] IPV 1998 00:00:00 Completed [facility] DTaP, Unspecified Formulation 1998 00:00:00 Completed [facility] Hep B, Adol or Pedi Dosage 1998 00:00:00 Completed [facility] HIB 4 Dose Schedule 1998 00:00:00 Completed [facility] IPV 1998 00:00:00 Completed [facility] DTaP, Unspecified Formulation 1998 00:00:00 Completed [facility] Hep B, Adol or Pedi Dosage 1998 00:00:00 Completed [facility] HIB 4 Dose Schedule 1998 00:00:00 Completed [facility] IPV 1998 00:00:00 Completed [facility] DTaP, Unspecified Formulation 1998 00:00:00 Completed [facility] Hep B, Adol or Pedi Dosage 1998 00:00:00 Completed [facility] HIB 4 Dose Schedule 1998 00:00:00 Completed [facility] IPV 1998 00:00:00 Completed [facility] DTaP, Unspecified Formulation 1998 00:00:00 Completed [facility] Hep B, Adol or Pedi Dosage 1998 00:00:00 Completed [facility] HIB 4 Dose Schedule 1998 00:00:00 Completed [facility] IPV 1998 00:00:00 Completed [facility] DTaP, Unspecified Formulation 1998 00:00:00 Completed [facility] Hep B, Adol or Pedi Dosage 1998 00:00:00 Completed [facility] HIB 4 Dose Schedule 1998 00:00:00 Completed [facility] IPV 1998 00:00:00 Completed [facility] DTaP, Unspecified Formulation 1998 00:00:00 Completed [facility] Hep B, Adol or Pedi Dosage 1998 00:00:00 Completed [facility] HIB 4 Dose Schedule 1998 00:00:00 Completed [facility] IPV 1998 00:00:00 Completed [facility] DTaP, Unspecified Formulation 1998 00:00:00 Completed [facility] Hep B, Adol or Pedi Dosage 1998 00:00:00 Completed [facility] HIB 4 Dose Schedule 1998 00:00:00 Completed [facility] IPV 1998 00:00:00 Completed [facility] DTaP, Unspecified Formulation 1998 00:00:00 Completed [facility] Hep B, Adol or Pedi Dosage 1998 00:00:00 Completed [facility] HIB 4 Dose Schedule 1998 00:00:00 Completed [facility] IPV 1998 00:00:00 Completed [facility] DTaP, Unspecified Formulation 1998 00:00:00 Completed [facility] Hep B, Adol or Pedi Dosage 1998 00:00:00 Completed [facility] HIB 4 Dose Schedule 1998 00:00:00 Completed [facility] IPV 1998 00:00:00 Completed [facility] DTaP, Unspecified Formulation 1998 00:00:00 Completed [facility] Hep B, Adol or Pedi Dosage 1998 00:00:00 Completed [facility] HIB 4 Dose Schedule 1998 00:00:00 Completed [facility] IPV 1998 00:00:00 Completed [facility] DTaP, Unspecified Formulation 1998 00:00:00 Completed [facility] Hep B, Adol or Pedi Dosage 1998 00:00:00 Completed [facility] Hep B, Adol or Pedi Dosage 1998 00:00:00 Completed [facility] Hep B, Adol or Pedi Dosage 1998 00:00:00 Completed [facility] Hep B, Adol or Pedi Dosage 1998 00:00:00 Completed [facility] Hep B, Adol or Pedi Dosage 1998 00:00:00 Completed [facility] Hep B, Adol or Pedi Dosage 1998 00:00:00 Completed [facility] Hep B, Adol or Pedi Dosage 1998 00:00:00 Completed [facility] Hep B, Adol or Pedi Dosage 1998 00:00:00 Completed [facility] Hep B, Adol or Pedi Dosage 1998 00:00:00 Completed [facility] Hep B, Adol or Pedi Dosage 1998 00:00:00 Completed [facility] Hep B, Adol or Pedi Dosage 1998 00:00:00 Completed [facility] Hep B, Adol or Pedi Dosage 1998 00:00:00 Completed [facility] Hep B, Adol or Pedi Dosage 1998 00:00:00 Completed [facility] Hep B, Adol or Pedi Dosage 1998 00:00:00 Completed [facility] Hep B, Adol or Pedi Dosage 1998 00:00:00 Completed [facility] Hep B, Adol or Pedi Dosage 1998 00:00:00 Completed [facility] Hep B, Adol or Pedi Dosage 1998 00:00:00 Completed [facility] Hep B, Adol or Pedi Dosage 1998 00:00:00 Completed [facility] Hep B, Adol or Pedi Dosage 1998 00:00:00 Completed [facility] Hep B, Adol or Pedi Dosage 1998 00:00:00 Completed [facility] Hep B, Adol or Pedi Dosage 1998 00:00:00 Completed [facility] Hep B, Adol or Pedi Dosage 1998 00:00:00 Completed [facility] Hep B, Adol or Pedi Dosage 1998 00:00:00 Completed [facility] Hep B, Adol or Pedi Dosage 1998 00:00:00 Completed [facility] Hep B, Adol or Pedi Dosage 1998 00:00:00 Completed [facility] Hep B, Adol or Pedi Dosage 1998 00:00:00 Completed [facility] Hep B, Adol or Pedi Dosage 1998 00:00:00 Completed [facility] Hep B, Adol or Pedi Dosage 1998 00:00:00 Completed [facility] Hep B, Adol or Pedi Dosage 1998 00:00:00 Completed [facility] Hep B, Adol or Pedi Dosage 1998 00:00:00 Completed [facility] Hep B, Adol or Pedi Dosage 1998 00:00:00 Completed [facility] Hep B, Adol or Pedi Dosage 1998 00:00:00 Completed [facility] Hep B, Adol or Pedi Dosage 1998 00:00:00 Completed [facility] Hep B, Adol or Pedi Dosage 1998 00:00:00 Completed [facility] Hep B, Adol or Pedi Dosage 1998 00:00:00 Completed [facility] Hep B, Adol or Pedi Dosage 1998 00:00:00 Completed [facility] Hep B, Adol or Pedi Dosage 1998 00:00:00 Completed [facility] Influenza Virus Vaccine Quad .5 mL IM 6+ MO (FLUZONE/FLULAVAL/FLU ARIX) Unknown Completed [facility] TDAP (ADACEL) VACCINE Unknown Completed [facility] SARS-COV-2 COVID-19 MODERNA 12+ YRS VACCINE Unknown Completed [facility] SARS-COV-2 COVID-19 MODERNA 12+ YRS VACCINE Unknown Completed [facility] HPV9 Unknown Completed [facility] SARS-COV-2 COVID-19 MODERNA 0.25ML BOOSTER VACCINE Unknown Completed [facility] DTaP, Unspecified Formulation Unknown Completed [facility] Influenza Virus Vaccine Quad Nasal (Flumist) Unknown Completed [facility] Influenza Virus Vaccine - Whole Unknown Completed [facility] Influenza Virus Vaccine Nasal Unknown Completed [facility] Hep B, Adol or Pedi Dosage Unknown Completed [facility] Hep B, Adol or Pedi Dosage Unknown Completed [facility] HIB 4 Dose Schedule Unknown Completed [facility] HPV Unspecified Unknown Completed [facility] HPV Unspecified Unknown Completed [facility] HPV Unknown Completed [facility] HPV Unknown Completed [facility] Meningococcal Oligosaccharide (groups A, C, Y and W-135) conjugate vaccine (MCV4O) Unknown Completed [facility] Meningococcal Oligosaccharide (groups A, C, Y and W-135) conjugate vaccine (MCV4O) Unknown Completed [facility] Meningococcal Polysaccharide (groups A, C, Y and W-135) conjugate vaccine (MCV4P) Unknown Completed [facility] IPV Unknown Completed [facility] TDAP Unknown Completed [facility] Influenza Virus Vaccine Quad .5 mL IM 6+ MO (FLUZONE/FLULAVAL/FLU ARIX) Unknown Completed [facility] TDAP (ADACEL) VACCINE Unknown Completed [facility] SARS-COV-2 COVID-19 MODERNA 12+ YRS VACCINE Unknown Completed [facility] SARS-COV-2 COVID-19 MODERNA 12+ YRS VACCINE Unknown Completed [facility] HPV9 Unknown Completed [facility] SARS-COV-2 COVID-19 MODERNA 0.25ML BOOSTER VACCINE Unknown Completed [facility] DTaP, Unspecified Formulation Unknown Completed [facility] Influenza Virus Vaccine Quad Nasal (Flumist) Unknown Completed [facility] Influenza Virus Vaccine - Whole Unknown Completed [facility] Influenza Virus Vaccine Nasal Unknown Completed [facility] Hep B, Adol or Pedi Dosage Unknown Completed [facility] Hep B, Adol or Pedi Dosage Unknown Completed [facility] HIB 4 Dose Schedule Unknown Completed [facility] HPV Unspecified Unknown Completed [facility] HPV Unspecified Unknown Completed [facility] HPV Unknown Completed [facility] HPV Unknown Completed [facility] Meningococcal Oligosaccharide (groups A, C, Y and W-135) conjugate vaccine (MCV4O) Unknown Completed [facility] Meningococcal Oligosaccharide (groups A, C, Y and W-135) conjugate vaccine (MCV4O) Unknown Completed [facility] Meningococcal Polysaccharide (groups A, C, Y and W-135) conjugate vaccine (MCV4P) Unknown Completed [facility] IPV Unknown Completed [facility] TDAP Unknown Completed [facility] Influenza Virus Vaccine Quad .5 mL IM 6+ MO (FLUZONE/FLULAVAL/FLU ARIX) Unknown Completed [facility] TDAP (ADACEL) VACCINE Unknown Completed [facility] SARS-COV-2 COVID-19 MODERNA 12+ YRS VACCINE Unknown Completed [facility] SARS-COV-2 COVID-19 MODERNA 12+ YRS VACCINE Unknown Completed [facility] HPV9 Unknown Completed [facility] SARS-COV-2 COVID-19 MODERNA 0.25ML BOOSTER VACCINE Unknown Completed [facility] DTaP, Unspecified Formulation Unknown Completed [facility] Influenza Virus Vaccine Quad Nasal (Flumist) Unknown Completed [facility] Influenza Virus Vaccine - Whole Unknown Completed [facility] Influenza Virus Vaccine Nasal Unknown Completed [facility] Hep B, Adol or Pedi Dosage Unknown Completed [facility] Hep B, Adol or Pedi Dosage Unknown Completed [facility] HIB 4 Dose Schedule Unknown Completed [facility] HPV Unspecified Unknown Completed [facility] HPV Unspecified Unknown Completed [facility] HPV Unknown Completed [facility] HPV Unknown Completed [facility] Meningococcal Oligosaccharide (groups A, C, Y and W-135) conjugate vaccine (MCV4O) Unknown Completed [facility] Meningococcal Oligosaccharide (groups A, C, Y and W-135) conjugate vaccine (MCV4O) Unknown Completed [facility] Meningococcal Polysaccharide (groups A, C, Y and W-135) conjugate vaccine (MCV4P) Unknown Completed [facility] IPV Unknown Completed [facility] TDAP Unknown Completed [facility] Influenza Virus Vaccine Quad .5 mL IM 6+ MO (FLUZONE/FLULAVAL/FLU ARIX) Unknown Completed [facility] TDAP (ADACEL) VACCINE Unknown Completed [facility] SARS-COV-2 COVID-19 MODERNA 12+ YRS VACCINE Unknown Completed [facility] SARS-COV-2 COVID-19 MODERNA 12+ YRS VACCINE Unknown Completed [facility] HPV9 Unknown Completed [facility] SARS-COV-2 COVID-19 MODERNA 0.25ML BOOSTER VACCINE Unknown Completed [facility] DTaP, Unspecified Formulation Unknown Completed [facility] Influenza Virus Vaccine Quad Nasal (Flumist) Unknown Completed [facility] Influenza Virus Vaccine - Whole Unknown Completed [facility] Influenza Virus Vaccine Nasal Unknown Completed [facility] Hep B, Adol or Pedi Dosage Unknown Completed [facility] Hep B, Adol or Pedi Dosage Unknown Completed [facility] HIB 4 Dose Schedule Unknown Completed [facility] HPV Unspecified Unknown Completed [facility] HPV Unspecified Unknown Completed [facility] HPV Unknown Completed [facility] HPV Unknown Completed [facility] Meningococcal Oligosaccharide (groups A, C, Y and W-135) conjugate vaccine (MCV4O) Unknown Completed [facility] Meningococcal Oligosaccharide (groups A, C, Y and W-135) conjugate vaccine (MCV4O) Unknown Completed [facility] Meningococcal Polysaccharide (groups A, C, Y and W-135) conjugate vaccine (MCV4P) Unknown Completed [facility] IPV Unknown Completed [facility] TDAP Unknown Completed [facility] Influenza Virus Vaccine Quad .5 mL IM 6+ MO (FLUZONE/FLULAVAL/FLU ARIX) Unknown Completed [facility] TDAP (ADACEL) VACCINE Unknown Completed [facility] SARS-COV-2 COVID-19 MODERNA 12+ YRS VACCINE Unknown Completed [facility] SARS-COV-2 COVID-19 MODERNA 12+ YRS VACCINE Unknown Completed [facility] HPV9 Unknown Completed [facility] SARS-COV-2 COVID-19 MODERNA 0.25ML BOOSTER VACCINE Unknown Completed [facility] DTaP, Unspecified Formulation Unknown Completed [facility] Influenza Virus Vaccine Quad Nasal (Flumist) Unknown Completed [facility] Influenza Virus Vaccine - Whole Unknown Completed [facility] Influenza Virus Vaccine Nasal Unknown Completed [facility] Hep B, Adol or Pedi Dosage Unknown Completed [facility] Hep B, Adol or Pedi Dosage Unknown Completed [facility] HIB 4 Dose Schedule Unknown Completed [facility] HPV Unspecified Unknown Completed [facility] HPV Unspecified Unknown Completed [facility] HPV Unknown Completed [facility] HPV Unknown Completed [facility] Meningococcal Oligosaccharide (groups A, C, Y and W-135) conjugate vaccine (MCV4O) Unknown Completed [facility] Meningococcal Oligosaccharide (groups A, C, Y and W-135) conjugate vaccine (MCV4O) Unknown Completed [facility] Meningococcal Polysaccharide (groups A, C, Y and W-135) conjugate vaccine (MCV4P) Unknown Completed [facility] IPV Unknown Completed [facility] TDAP Unknown Completed [facility] Influenza Virus Vaccine Quad .5 mL IM 6+ MO (FLUZONE/FLULAVAL/FLU ARIX) Unknown Completed [facility] TDAP (ADACEL) VACCINE Unknown Completed [facility] SARS-COV-2 COVID-19 MODERNA 12+ YRS VACCINE Unknown Completed [facility] SARS-COV-2 COVID-19 MODERNA 12+ YRS VACCINE Unknown Completed [facility] HPV9 Unknown Completed [facility] SARS-COV-2 COVID-19 MODERNA 0.25ML BOOSTER VACCINE Unknown Completed [facility] DTaP, Unspecified Formulation Unknown Completed [facility] Influenza Virus Vaccine Quad Nasal (Flumist) Unknown Completed [facility] Influenza Virus Vaccine - Whole Unknown Completed [facility] Influenza Virus Vaccine Nasal Unknown Completed [facility] Hep B, Adol or Pedi Dosage Unknown Completed [facility] Hep B, Adol or Pedi Dosage Unknown Completed [facility] HIB 4 Dose Schedule Unknown Completed [facility] HPV Unspecified Unknown Completed [facility] HPV Unspecified Unknown Completed [facility] HPV Unknown Completed [facility] HPV Unknown Completed [facility] Meningococcal Oligosaccharide (groups A, C, Y and W-135) conjugate vaccine (MCV4O) Unknown Completed [facility] Meningococcal Oligosaccharide (groups A, C, Y and W-135) conjugate vaccine (MCV4O) Unknown Completed [facility] Meningococcal Polysaccharide (groups A, C, Y and W-135) conjugate vaccine (MCV4P) Unknown Completed [facility] IPV Unknown Completed [facility] TDAP Unknown Completed [facility] Vital Signs Vital Name Observation Time Observation Value Comments S ource Heart rate 2023-09-05 00:57:32 110 /min [facility] Body temperature 2023-09-05 00:57:32 37.67 Kimber [facility] Respiratory rate 2023-09-05 00:57:32 18 /min [facility] Oxygen saturation in Arterial blood by Pulse oximetry 2023-09-05 00:57:32 97 /min [facility] Systolic blood pressure 2023-09-05 00:11:22 112 mm[Hg] [facility] Diastolic blood pressure 2023-09-05 00:11:22 79 mm[Hg] [facility] Body height 2023-09-04 23:08:00 154.9 cm [facility] Body weight 2023-09-04 23:08:00 47.628 kg [facility] BMI 2023-09-04 23:08:00 19.84 kg/m2 [facility] Systolic blood pressure 2023-08-07 00:16:00 121 mm[Hg] [facility] Diastolic blood pressure 2023-08-07 00:16:00 81 mm[Hg] [facility] Heart rate 2023-08-07 00:16:00 88 /min [facility] Body temperature 2023-08-07 00:16:00 36.89 Kimber [facility] Respiratory rate 2023-08-07 00:16:00 16 /min [facility] Body height 2023-08-07 00:16:00 154.9 cm [facility] Body weight 2023-08-07 00:16:00 47.628 kg [facility] BMI 2023-08-07 00:16:00 19.84 kg/m2 [facility] Oxygen saturation in Arterial blood by Pulse oximetry 2023-08-07 00:16:00 100 /min [facility] Systolic blood pressure 2022-10-12 13:54:00 104 mm[Hg] [facility] Diastolic blood pressure 2022-10-12 13:54:00 74 mm[Hg] [facility] Heart rate 2022-10-12 13:54:00 71 /min [facility] Respiratory rate 2022-10-12 13:54:00 18 /min [facility] Body weight 2022-10-12 13:54:00 48.444 kg [facility] BMI 2022-10-12 13:54:00 20.18 kg/m2 [facility] Oxygen saturation in Arterial blood by Pulse oximetry 2022-10-12 13:54:00 100 /min [facility] Systolic blood pressure 2022-10-10 18:13:00 111 mm[Hg] [facility] Diastolic blood pressure 2022-10-10 18:13:00 57 mm[Hg] [facility] Heart rate 2022-10-10 18:13:00 77 /min [facility] Body temperature 2022-10-10 18:13:00 36.72 Kimber [facility] Respiratory rate 2022-10-10 18:13:00 16 /min [facility] Body height 2022-10-10 18:13:00 154.9 cm [facility] Body weight 2022-10-10 18:13:00 48.49 kg [facility] BMI 2022-10-10 18:13:00 20.20 kg/m2 [facility] Oxygen saturation in Arterial blood by Pulse oximetry 2022-10-10 18:13:00 95 /min [facility] Systolic blood pressure 2022-08-30 19:04:00 99 mm[Hg] [facility] Diastolic blood pressure 2022-08-30 19:04:00 49 mm[Hg] [facility] Heart rate 2022-08-30 19:04:00 85 /min [facility] Body temperature 2022-08-30 19:04:00 36.11 Kimber [facility] Respiratory rate 2022-08-30 19:04:00 18 /min [facility] Body height 2022-08-30 19:04:00 154.9 cm [facility] Body weight 2022-08-30 19:04:00 48.671 kg [facility] BMI 2022-08-30 19:04:00 20.27 kg/m2 [facility] Systolic blood pressure 2022-08-16 15:06:00 119 mm[Hg] [facility] Diastolic blood pressure 2022-08-16 15:06:00 87 mm[Hg] [facility] Heart rate 2022-08-16 15:06:00 95 [facility] Body temperature 2022-08-16 15:06:00 36.44 Kimber [facility] Respiratory rate 2022-08-16 15:06:00 18 /min [facility] Body height 2022-08-16 15:06:00 154.9 cm [facility] Body weight 2022-08-16 15:06:00 49.079 kg [facility] BMI 2022-08-16 15:06:00 20.44 kg/m2 [facility] Heart rate 2022-07-19 05:03:00 110 /min [facility] Systolic blood pressure 2022-07-19 05:02:00 107 mm[Hg] [facility] Diastolic blood pressure 2022-07-19 05:02:00 54 mm[Hg] [facility] Respiratory rate 2022-07-19 05:02:00 18 /min [facility] Oxygen saturation in Arterial blood by Pulse oximetry 2022-07-19 05:02:00 96 /min [facility] Body height 2022-07-19 01:58:00 154.9 cm [facility] Body weight 2022-07-19 01:58:00 49.896 kg [facility] BMI 2022-07-19 01:58:00 20.78 kg/m2 [facility] Body temperature 2022-07-19 01:57:00 36.72 Kimber [facility] Systolic blood pressure 2022-04-06 16:23:00 104 mm[Hg] [facility] Diastolic blood pressure 2022-04-06 16:23:00 58 mm[Hg] [facility] Heart rate 2022-04-06 16:23:00 107 /min [facility] Body temperature 2022-04-06 16:23:00 37.06 Kimber [facility] Respiratory rate 2022-04-06 16:23:00 16 /min [facility] Body height 2022-04-06 16:23:00 154.9 cm [facility] Body weight 2022-04-06 16:23:00 50.349 kg [facility] BMI 2022-04-06 16:23:00 20.97 kg/m2 [facility] Oxygen saturation in Arterial blood by Pulse oximetry 2022-04-06 16:23:00 99 /min [facility] Systolic blood pressure 2018-06-27 20:20:00 115 mm[Hg] [facility] Diastolic blood pressure 2018-06-27 20:20:00 78 mm[Hg] [facility] Heart rate 2018-06-27 20:20:00 98 /min [facility] Body temperature 2018-06-27 20:20:00 36.78 Kimber [facility] Respiratory rate 2018-06-27 20:20:00 18 /min [facility] Body height 2018-06-27 20:20:00 154.9 cm [facility] Body weight 2018-06-27 20:20:00 46.72 kg [facility] BMI 2018-06-27 20:20:00 19.46 kg/m2 [facility] Procedures Procedure Date / Time Performed Performing Clinician Source RAPID STREP SCREEN FOR GROUP A 2023-09-04 23:26:00 Jameel Rose [facility] POCT TEST 2023-08-07 01:23:00 Anita Locke [facility] CONSENT FOR CONTRACEPTION 2022-10-12 05:01:00 Doctor Unassigned, [place] [facility] POCT TEST 2022-08-30 19:06:00 Mack Macdonald [facility] GC & CHLAMYDIA AMPLIFIED ASSAY 2022-08-16 16:29:00 Berny Macdonald [facility] PAP SMEAR-LIQUID BASED-CP 2022-08-16 16:29:00 Berny Macdonald [facility] REPORT OF 2022-08-16 05:01:00 Doctor Luis Eduardo gomezsigned, [place] [facility] [id number] CONSENT 2022-08-16 05:01:00 Doctor Unas signed, [place] [facility] COMP. METABOLIC PANEL ([id number]) 2022-07-19 02:32:00 Víctor Benson [facility] CBC WITH DIFF 2022-07-19 02:32:00 Víctor Benson [facility] POCT TEST 2022-07-19 02:29:00 Víctor Benson [facility] URINALYSIS 2022-07-19 02:26:00 Víctor Benson [facility] RAPID STREP SCREEN FOR GROUP A 2022-07-19 02:26:00 Víctor Benson [facility] RAPID INFLUENZA A/B 2022-07-19 02:26:00 Víctor Benson [facility] COVID-19 (ID NOW RAPID TESTING) 2022-07-19 02:26:00 Víctor Benson [facility] NOTICE OF PRIVACY PRACTICES 2022-07-19 01:49:51 Doctor Unassigned, [place] [facility] CONSENT/REFUSAL FOR DIAGNOSIS AND TREATMENT 2022-07-19 01:49:21 Doctor Unassigned, [place] [facility] POCT MOLECULAR FLU 2022-04-06 16:31:00 Unknown, Attend ing [facility] POCT MOLECULAR STREP 2022-04-06 16:29:00 Unknown, Atte nding [facility] POCT URINALYSIS W/O SPECIFIC GRAVITY 2018-06-27 00:00:00 Andrea Mclaughlin [facility] Encounters Start Date/Time End Date/Time Encounter Type Admission Type Attending [facility] Care Department Encounter ID Source 2023-09-04 18:10:00 2023-09-04 19:59:00 Emergency X JAMEEL ROSE [facility] [id number] [facility] 2023-09-04 18:10:00 2023-09-04 19:59:00 Emergency Jameel Rose [facility] 1.2.840.114 350.1.13.10 4.2.7.2.686 [id number] [facility] 2023-08-06 19:20:00 2023-08-06 22:30:00 Emergency X CHACHA LOCKE [facility] ERT [id number] [facility] 2023-08-06 19:20:00 2023-08-06 22:30:00 Emergency Chacha Locke [facility] 1.2.840.114 350.1.13.10 4.2.7.2.686 [id number] [facility] 2023-01-04 09:30:00 2023-01-04 09:30:00 Outpatient R VICKEY JOHNSON CHERYAL [facility] [id number] [facility] 2022-10-12 08:30:00 2022-10-12 09:07:50 Outpatient R VICKEY JOHNSON CHERYAL [facility] [id number] [facility] 2022-10-12 08:30:00 2022-10-12 09:07:50 [facility] 1.2840.114 350.1.13.10 4.2.7.2.686 [id number] [facility] 2022-10-12 00:00:00 2022-10-12 00:00:00 Orders Only Doctor Unassigned, [place] [facility] 1.2840.114 350.1.13.10 4.2.7.2.686 [id number] [facility] 2022-10-10 14:15:00 2022-10-10 14:30:00 Customer Assistant Visit Lab, Yvon Johnson [facility] 1.2840.114 350.1.13.10 4.2.7.2.686 [id number] [facility] 2022-10-10 13:00:00 2022-10-10 13:24:00 Outpatient R VICKEY JOHNSON [facility] [id number] [facility] 2022-10-10 13:00:00 2022-10-10 13:24:00 [facility] 1.2840.114 350.1.13.10 4.2.7.2.686 [id number] [facility] 2022-10-10 00:00:00 2022-10-10 00:00:00 Patient Secure Msg [facility] 1.2840.114 350.1.13.10 4.2.7.2.686 [id number] [facility] 2022-09-12 08:00:00 2022-09-12 08:00:00 Outpatient R BERNY MACDONALD [facility] [id number] [facility] 2022-09-05 00:00:00 2022-09-05 00:00:00 Telephone Aroldorodrigoal Berny Santana [facility] QC TECH [facility] 1.2.840.114 350.1.13.10 4.2.7.2.686 [id number] [facility] 2022-09-05 00:00:00 2022-09-05 00:00:00 Patient Secure Msg MaloualJuaquinBerny C [facility] QC TECH [facility] 1.2.840.114 350.1.13.10 4.2.7.2.686 [id number] 107 [id number] [facility] 2022-09-04 08:30:00 2022-09-04 08:39:15 Customer Assistant Visit Lab, Berny Garcia [facility] QC TECH [facility] 1.2.840.114 350.1.13.10 4.2.7.2.686 [id number] [facility] 2022-09-04 08:30:00 2022-09-04 08:30:00 Outpatient R BERNY MACDONALD [facility] [id number] [facility] 2022-09-01 08:30:00 2022-09-01 08:53:31 Customer Assistant Visit Lab, Berny Garcia [facility] QC TECH [facility] 1.2.840.114 350.1.13.10 4.2.7.2.686 [id number] [facility] 2022-09-01 08:30:00 2022-09-01 08:30:00 Outpatient R BERNY MACDONALD [facility] [id number] [facility] 2022-08-30 13:45:00 2022-08-30 14:46:30 Outpatient R SUSY MACDONALDOLA [facility] [id number] [facility] 2022-08-30 13:45:00 2022-08-30 14:46:30 Office Visit Berny Macdonald [facility] QC TECH [facility] 1..840.114 350.1.13.10 4.2.7.2.686 [id number] [facility] 2022-08-18 08:00:00 2022-08-18 08:00:00 Outpatient R BERNY MACDONALD [facility] [id number] [facility] 2022-08-16 09:45:00 2022-08-16 11:22:49 Outpatient R BERNY MACDONALD [facility] [id number] [facility] 2022-08-16 09:45:00 2022-08-16 11:22:49 Office Visit Berny Macdonald [facility] QC TECH [facility] 1.840.114 350.1.13.10 4.2.7.2.686 [id number] [facility] 2022-08-16 00:00:00 2022-08-16 00:00:00 Orders Only Doctor Unassigned, [place] [facility] 1.840.114 350.1.13.10 4.2.7.2.686 [id number] [facility] 2022-08-04 10:30:00 2022-08-04 10:30:00 Outpatient R LEBRON HENSLEY [facility] [id number] [facility] 2022-07-18 21:02:00 2022-07-19 00:23:00 Emergency X VÍCTOR BENSON [facility] E[facility] [id number] [facility] 2022-07-18 21:02:00 2022-07-19 00:23:00 Emergency Víctor Benson [facility] 1.840.114 350.1.13.10 4.2.7.2.686 [id number] [facility] 2022-07-19 00:00:00 2022-07-19 00:00:00 Patient Secure Msg Doctor Unassigned, [place] [facility] 1.2.840.114 350.1.13.10 4.2.7.2.686 [id number] [facility] 2022-07-18 00:00:00 2022-07-18 00:00:00 Patient Secure Msg Doctor Unassigned, [place] [facility] 1.2840.114 350.1.13.10 4.2.7.2.686 [id number] [facility] 2022-04-06 09:20:00 2022-04-06 10:51:30 Outpatient R MARINA BEARDEN [facility] [id number] [facility] 2022-04-06 09:20:00 2022-04-06 09:40:00 Urgent Care Marina Bearden Unknown, Attending [facility] 1.2.840.114 350.1.13.10 4.2.7.2.686 [id number] [facility] 2022-04-06 00:00:00 2022-04-06 00:00:00 Letter (Out) Marina Bearden [facility] 1.2.840.114 350.1.13.10 4.2.7.2.686 [id number] [facility] 2022-03-07 14:40:00 2022-03-07 14:40:00 Outpatient R BASIL DAVIS [facility] [id number] [facility] 2022-02-20 08:30:00 2022-02-20 08:30:00 Outpatient R LEBRON HENSLEY [facility] [id number] [facility] 2022-01-27 15:20:00 2022-01-27 15:20:00 Outpatient R BASIL DAVIS [facility] [id number] [facility] 2022-01-26 10:40:00 2022-01-26 10:40:00 Outpatient R BASIL DAVIS [facility] [id number] [facility] 2022-01-26 00:00:00 2022-01-26 00:00:00 Refill Rasheed [facility] 1..840.114 350.1.13.10 4.2.7.2.686 [id number] [facility] 2022-01-03 08:00:00 2022-01-03 09:15:41 Outpatient R BARBARAMOON BASIL [facility] [id number] [facility] 2022-01-03 08:00:00 2022-01-03 09:15:41 Telemedici ne Visit Rasheed Basil [facility] 1..840.114 350.1.13.10 4.2.7.2.686 [id number] [facility] 2022-01-03 08:00:00 2022-01-03 08:00:00 Outpatient R RASHEED BASIL [facility] [id number] [facility] 2022-01-03 00:00:00 2022-01-03 00:00:00 Telephone Barbaragumeviry Basil [facility] 1..840.114 350.1.13.10 4.2.7.2.686 [id number] [facility] 2021-12-31 00:00:00 2021-12-31 00:00:00 Patient Secure Msg Doctor Unassigned, [place] [facility] 1.840.114 350.1.13.10 4.2.7.2.686 [id number] [facility] 2021-12-12 00:00:00 2021-12-12 00:00:00 Patient Secure [facility] 1..840.114 350.1.13.10 4.2.7.2.686 [id number] [facility] 2021-12-11 00:00:00 2021-12-11 00:00:00 Telephone Shemar [facility] EULOGIO?[facility] 1..840.114 350.1.13.10 4.2.7.2.686 [id number] [facility] 2021-12-09 19:40:00 2021-12-09 20:00:00 Urgent Care EbMatthew pereira [facility] 1.840.114 350.1.13.10 4.2.7.2.686 [id number] [facility] 2021-12-09 19:40:00 2021-12-09 19:40:00 Outpatient R SHEMAR [facility] [id number] [facility] 2021-12-02 16:15:00 2021-12-02 16:30:00 Customer Assistant Visit 2, [facility] Rachna Rubio [facility] 1..840.114 350.1.13.10 4.2.7.2.686 [id number] [facility] 2021-12-02 13:00:00 2021-12-02 16:13:48 Imm/Inj Visit Vaccine, [facility] Rachna Rubio [facility] 1..840.114 350.1.13.10 4.2.7.2.686 [id number] [facility] 2021-12-02 14:30:00 2021-12-02 16:11:03 Outpatient R RACHNA RUBIO OGECHUKWU [facility] [id number] [facility] 2021-12-02 14:30:00 2021-12-02 16:11:03 Office Visit Basil Davis Ogechukwu [facility] 1.2840.114 350.1.13.10 4.2.7.2.686 [id number] [facility] 2021-12-02 00:00:00 2021-12-02 00:00:00 Refill Lebron Hensley [facility] 1.2.114 350.1.13.10 4.2.7.2.686 [id number] [facility] 2021-10-25 08:14:00 2021-10-25 08:45:00 Emergency Pascual Ron [facility] 1.20.114 350.1.13.10 4.2.7.2.686 [id number] [facility] 2021-10-25 08:14:00 2021-10-25 08:45:00 Emergency X PASCUAL RON [facility] ERT [id number] [facility] 2021-10-25 00:00:00 2021-10-25 00:00:00 Orders Only Doctor Unassigned, [place] [facility] 1.20.114 350.1.13.10 4.2.7.2.686 [id number] [facility] 2021-08-17 13:15:00 2021-08-17 13:59:35 Office Visit Lebron Hensley [facility] 1.2840.114 350.1.13.10 4.2.7.2.686 [id number] [facility] 2021-08-17 13:15:00 2021-08-17 13:59:35 Outpatient R LEBRON HENSLEY [facility] [id number] [facility] 2021-08-17 13:15:00 2021-08-17 13:15:00 Outpatient R LEBRON HENSLEY [facility] [id number] [facility] 2021-08-17 00:00:00 2021-08-17 00:00:00 Orders Only Doctor Unassigned, [place] [facility] 1.84.114 350.1.13.10 4.2.7.2.686 [id number] [facility] 2021-07-08 00:00:00 2021-07-08 00:00:00 Telephone Lebron Hensley [facility] 1.84.114 350.1.13.10 4.2.7.2.686 [id number] [facility] 2020-07-06 00:00:00 2020-07-06 00:00:00 Patient Outreach Wilber Swanson [facility] 1.84.114 350.1.13.10 4.2.7.2.686 [id number] 2020-03-17 13:40:00 2020-03-17 13:40:00 Outpatient R BASIL DAVIS [facility] [id number] [facility] 2020-02-17 00:00:00 2020-02-17 00:00:00 Basil Fox [facility] 1.84.114 350.1.13.10 4.2.7.2.686 [id number] 2020-01-20 00:00:00 2020-01-20 00:00:00 Refill Basil Davis [facility] 1.84.114 350.1.13.10 4.2.7.2.686 [id number] 2020-01-17 00:00:00 2020-01-17 00:00:00 Refill Basil Davis [facility] 1.2.840.114 350.1.13.10 4.2.7.2.686 [id number] 2020-01-05 00:00:00 2020-01-05 00:00:00 Telephone Basil Davis [facility] 1.2.840.114 350.1.13.10 4.2.7.2.686 [id number] 2019-12-29 00:00:00 2019-12-29 00:00:00 Refill Basil Davis [facility] Building 1.2.840.114 350.1.13.10 4.2.7.2.686 [id number] 044 [id number] 2019-12-25 09:51:03 2019-12-25 10:55:51 Office Visit Basil Davis [facility] Building 1.2.840.114 350.1.13.10 4.2.7.2.686 [id number] 2019-12-25 10:00:00 2019-12-25 10:00:00 Outpatient BASIL GARNER [facility] [id number] [facility] 2019-09-24 14:40:00 2019-09-24 14:40:00 Outpatient ANGELA GUERRERO [facility] [id number] [facility] 2018-06-27 15:15:00 2018-06-27 16:29:04 Outpatient ANDREA CAPELLAN MICHAEL [facility] [id number] [facility] 2018-06-27 15:15:00 2018-06-27 16:29:04 Routine Visit Andrea Mclaughlin [facility] 1.2.840.114 350.1.13.10 4.2.7.2.686 [id number] [facility] Results Test Description Test Time Test Comments Results Result Co mments Source [facility] [id number] 19:06:00* Test Item Value Reference Range Interpretation Comme nts POCT PREG (test code = 1605) Positive On board controls acceptable with C Line (test code = 3574) Yes POCT PREG LOT # (test code = 3575) POCT PREG TEST DATE ( test code = 3576) [facility] [id number] 19:06:00* Test Item Value Reference Range Interpretation Comme nts POCT PREG (test code = 1605) Positive On board controls acceptable with C Line (test code = 3574) Yes POCT PREG LOT # (test code = 3575) POCT PREG TEST DATE ( test code = 3576) [facility] [id number] 19:06:00* Test Item Value Reference Range Interpretation Comme nts POCT PREG (test code = 1605) Positive On board controls acceptable with C Line (test code = 3574) Yes POCT PREG LOT # (test code = 3575) POCT PREG TEST DATE ( test code = 3576) [facility] [id number] 19:06:00* Test Item Value Reference Range Interpretation Comme nts POCT PREG (test code = 1605) Positive On board controls acceptable with C Line (test code = 3574) Yes POCT PREG LOT # (test code = 3575) POCT PREG TEST DATE ( test code = 3576) [facility] [id number] 19:06:00* Test Item Value Reference Range Interpretation Comme nts POCT PREG (test code = 1605) Positive On board controls acceptable with C Line (test code = 3574) Yes POCT PREG LOT # (test code = 3575) POCT PREG TEST DATE ( test code = 3576) [facility] [id number] 19:06:00* Test Item Value Reference Range Interpretation Comme nts POCT PREG (test code = 1605) Positive On board controls acceptable with C Line (test code = 3574) Yes POCT PREG LOT # (test code = 3575) POCT PREG TEST DATE ( test code = 3576) [facility] [id number] 19:06:00* Test Item Value Reference Range Interpretation Comme nts POCT PREG (test code = 1605) Positive On board controls acceptable with C Line (test code = 3574) Yes POCT PREG LOT # (test code = 3575) POCT PREG TEST DATE ( test code = 3576) [facility] [id number] 19:06:00* Test Item Value Reference Range Interpretation Comme nts POCT PREG (test code = 1605) Positive On board controls acceptable with C Line (test code = 3574) Yes POCT PREG LOT # (test code = 3575) POCT PREG TEST DATE ( test code = 3576) [facility] [id number] 19:06:00* Test Item Value Reference Range Interpretation Comme nts POCT PREG (test code = 1605) Positive On board controls acceptable with C Line (test code = 3574) Yes POCT PREG LOT # (test code = 3575) POCT PREG TEST DATE ( test code = 3576) [facility] [id number] 19:06:00* Test Item Value Reference Range Interpretation Comme nts POCT PREG (test code = 1605) Positive On board controls acceptable with C Line (test code = 3574) Yes POCT PREG LOT # (test code = 3575) POCT PREG TEST DATE ( test code = 3576) [facility] [id number] 19:06:00* Test Item Value Reference Range Interpretation Comme nts POCT PREG (test code = 1605) Positive On board controls acceptable with C Line (test code = 3574) Yes POCT PREG LOT # (test code = 3575) POCT PREG TEST DATE ( test code = 3576) [facility] [id number] 19:06:00* Test Item Value Reference Range Interpretation Comme nts POCT PREG (test code = 1605) Positive On board controls acceptable with C Line (test code = 3574) Yes POCT PREG LOT # (test code = 3575) POCT PREG TEST DATE ( test code = 3576) [facility] WITH [id number] 03:32:20* Test Item Value Reference Range Interpretation Comme nts WBC (test code = 6690-2) 21.07 See_Comment H [Automated message] The system which generated this result transmitted reference range: 4.30 - 11.10 10*3/?L. The reference range was not used to interpret this result as normal/abnormal. RBC (test code = 789-8) 4.71 See_Comment [Automated message] The system which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
[2023-12-30] MEDS ORDERED: DIAZEPAM 5 MG TABLET ONE (21:00)
--- NOTE | 2023-12-30 22:35 | ER ---
Nurse's Notes [facility] Name: Mckenna Lou Age: 23 yrs Sex: Female : 2000 Arrival Date: 12/30/2023 Time: 20:22 Bed 5 Private MD: Diagnosis: Anxiety disorder Presentation: 12/29 21:10 Chief complaint: Patient states: Pt states "I'm trying not to do something impulsive. tl4 It only takes 2 seconds". Pt denies desire to harm self, but states she has in the past. Pt states she is struggling, feels overwhelmed and does not have a great support system. Coronavirus screen: At this time, the client does not indicate any symptoms associated with coronavirus-19. Ebola Screen: No symptoms or risks identified at this time. Initial Sepsis Screen: Does the patient meet any 2 criteria? No. Patient's initial sepsis screen is negative. Does the patient have a suspected source of infection? No. Patient's initial sepsis screen is negative. Risk Assessment: Do you want to hurt yourself or someone else? Patient reports no desire to harm self or others. Onset of symptoms is unknown. 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 - Infectious Disease History:: Denies. - Family history:: not pertinent. - Social history:: Smoking status: Patient denies any tobacco usage or history of. Screenin:57 [facility] ED Fall Risk Assessment (Adult) History of falling in the last 3 months, bm8 including since admission No falls in past 3 months (0 pts) Confusion or Disorientation No (0 pts) Intoxicated or Sedated No (0 pts) Impaired Gait No (0 pts) Mobility Assist Device Used No (0 pt) Altered Elimination Score/Fall Risk Level 0 - 2 = Low Risk Oriented to surroundings, Maintained a safe environment, Educated pt \\T\\ family on fall prevention, incl call for assistance when getting out of bed, Assessed \\T\\ reinforced patient's understanding of fall precautions, Hourly rounding (assess needs \\T\\ fall precautionary measures) done, Used ambulatory aids as needed (educated on \\T\\ assisted with), Used gait belt as appropriate. Abuse screen: Denies threats or abuse. Nutritional screening: No deficits noted. Tuberculosis screening: No symptoms or risk factors identified. Assessment: 20:57 General: Appears distressed, slender, well groomed, well developed, well nourished, bm8 Behavior is cooperative, appropriate for age, crying. Pain: Denies pain. Neuro: No deficits noted. Level of Consciousness is awake, alert, obeys commands, Oriented to person, place, time, situation, Appropriate for age. Cardiovascular: No deficits noted. Capillary refill < 3 seconds Patient's skin is warm and dry. Respiratory: Airway is patent Trachea midline Respiratory effort is even, unlabored, Respiratory pattern is regular, symmetrical. GI: No signs and/or symptoms were reported involving the gastrointestinal system. : No signs and/or symptoms were reported regarding the genitourinary system. EENT: No signs and/or symptoms were reported regarding the EENT system. Derm: No signs and/or symptoms reported regarding the dermatologic system. Musculoskeletal: No signs and/or symptoms reported regarding the musculoskeletal system. 22:25 Reassessment: Patient appears in no apparent distress at this time. Patient and/or bm8 family updated on plan of care and expected duration. Pain level reassessed. Patient is alert, oriented x 3, equal unlabored respirations, skin warm/dry/pink. Pt has a supportive adult at bedside. Patient denies pain at this time. Patient states feeling better. 22:52 Reassessment: No changes from previously documented assessment. Patient denies pain at bm8 this time. Patient states feeling better. Patient states symptoms have improved. 22:52 Reassessment: pt going home with mother in law, care plan and resources provided to pt bm8 for follow up. Vital Signs: 21:10 BP 133 / 71; Pulse 120; Resp 24; Temp 98.6(O); Pulse Ox 97% on R/A; Weight 47.63 kg; tl4 Height 5 ft. 0 in. ; Pain 0/10; 22:25 BP 105 / 77; Pulse 65; Resp 17; Temp 98.6; Pulse Ox 98% ; Pain 0/10; bm8 22:52 BP 105 / 74; Pulse 83; Resp 17; Temp 98.6; Pulse Ox 97% ; Pain 0/10; bm8 21:10 Body Mass Index 20.51 (47.63 kg, 152.4 cm) tl4 21:10 Pain Scale: Adult tl4 22:25 Pain Scale: Adult bm8 22:52 Pain Scale: Adult bm8 Surprise Coma Score: 20:57 Eye Response: spontaneous(4). Motor Response: obeys commands(6). Verbal Response: bm8 oriented(5). Total: 15. 22:25 Eye Response: spontaneous(4). Motor Response: obeys commands(6). Verbal Response: bm8 oriented(5). Total: 15. 22:52 Eye Response: spontaneous(4). Motor Response: obeys commands(6). Verbal Response: bm8 oriented(5). Total: 15. ED Course: 20:29 Patient arrived in ED. im 20:30 Micheal Arechiga MD is Attending Physician. rt 20:57 Remi Garza, RN is Primary Nurse. bm8 20:57 Patient has correct armband on for positive identification. Bed in low position. Call bm8 light in reach. Client placed on continuous cardiac and pulse oximetry monitoring. NIBP monitoring applied. Pulse ox on. NIBP on. Door closed. Noise minimized. Pillow given. Verbal reassurance given. Head of bed elevated. 20:57 No provider procedures requiring assistance completed. bm8 21:13 Triage completed. tl4 21:14 Arm band placed on right wrist. tl4 22:52 Provided Education on: post er care. bm8 22:52 Patient did not have IV access during this emergency room visit. bm8 Administered Medications: 21:03 Drug: Diazepam PO 5 mg PO once Route: PO; bm8 22:54 Follow up: Response: No adverse reaction bm8 Medication: 20:57 VIS not applicable for this client. bm8 Outcome: 22:34 Discharge ordered by . rt 22:52 Discharged to home ambulatory, bm8 22:52 Condition: stable 22:52 Discharge instructions given to patient, family, Instructed on discharge instructions, follow up and referral plans. no drinking with medication, no driving heavy equipment, medication usage, safety practices, Demonstrated understanding of instructions, follow-up care, medications, Prescriptions given X 1, 22:54 Patient left the ED. bm8 Signatures: Micheal Arechiga MD MD rt Margarette Lyle Toni RN RN tl4 Remi Garza RN RN bm8 Corrections: (The following items were deleted from the chart) 21:14 21:13 PSHx: ; tl4 tl4
--- NOTE | 2023-12-30 22:35 | EDPHYS ---
Physician Documentation [facility] Name: Mckenna Lou Age: 23 yrs Sex: Female : 2000 Arrival Date: 12/30/2023 Time: 20:22 Bed 5 Private MD: ED Physician Micheal Arechiga HPI: 12/29 21:07 This 23 yrs old Female presents to ER via Unassigned with complaints of Anxiety. rt 21:07 Patient presents to the ED with reported anxiety. Patient states that she occasionally rt suicidal thoughts, no overt plan. Patient came in today because she was worried about her doing "something impulsive". She adamantly states that she does not wish to . Patient attributes this to bowling that she is receiving. Patient lives alone but does have a daughter in town. The patient denies physical symptoms at this time. States that she has been previously on medications for major depressive disorder but is not on any medicines currently but did recently receive insurance. She denies other acute complaints at this time, symptoms are moderate in severity, no other aggravating or alleviating factors.. 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 - Infectious Disease History:: Denies. - Family history:: not pertinent. - Social history:: Smoking status: Patient denies any tobacco usage or history of. ROS: 21:07 Constitutional: Negative for fever, chills, and weight loss, Cardiovascular: Negative rt for chest pain, palpitations, and edema, Respiratory: Negative for shortness of breath, cough, wheezing, and pleuritic chest pain, Abdomen/GI: Negative for abdominal pain, nausea, vomiting, diarrhea, and constipation, Skin: Negative for injury, rash, and discoloration, Neuro: Negative for headache, weakness, numbness, tingling, and seizure, 21:07 Psych: Positive for anxiety, depression, Exam: 21:07 Constitutional: This is a well developed, well nourished patient who is awake, alert, rt and in no acute distress. Head/Face: Normocephalic, atraumatic. Chest/axilla: Normal chest wall appearance and motion. Nontender with no deformity. No lesions are appreciated. Cardiovascular: Regular rate and rhythm with a normal S1 and S2. No gallops, murmurs, or rubs. Normal PMI, no JVD. No pulse deficits. Respiratory: Lungs have equal breath sounds bilaterally, clear to auscultation and percussion. No rales, rhonchi or wheezes noted. No increased work of breathing, no retractions or nasal flaring. Abdomen/GI: Soft, non-tender, with normal bowel sounds. No distension or tympany. No guarding or rebound. No evidence of tenderness throughout. Skin: Warm, dry with normal turgor. Normal color with no rashes, no lesions, and no evidence of cellulitis. MS/ Extremity: Pulses equal, no cyanosis. Neurovascular intact. Full, normal range of motion. 21:07 Psych: Mood anxious, affect is tearful. Denies active suicidal ideation, homicidal ideation, audiovisual hallucinations. Vital Signs: 21:10 BP 133 / 71; Pulse 120; Resp 24; Temp 98.6(O); Pulse Ox 97% on R/A; Weight 47.63 kg; tl4 Height 5 ft. 0 in. ; Pain 0/10; 22:25 BP 105 / 77; Pulse 65; Resp 17; Temp 98.6; Pulse Ox 98% ; Pain 0/10; bm8 22:52 BP 105 / 74; Pulse 83; Resp 17; Temp 98.6; Pulse Ox 97% ; Pain 0/10; bm8 21:10 Body Mass Index 20.51 (47.63 kg, 152.4 cm) tl4 21:10 Pain Scale: Adult tl4 22:25 Pain Scale: Adult bm8 22:52 Pain Scale: Adult bm8 Jamshid Coma Score: 20:57 Eye Response: spontaneous(4). Motor Response: obeys commands(6). Verbal Response: bm8 oriented(5). Total: 15. 22:25 Eye Response: spontaneous(4). Motor Response: obeys commands(6). Verbal Response: bm8 oriented(5). Total: 15. 22:52 Eye Response: spontaneous(4). Motor Response: obeys commands(6). Verbal Response: bm8 oriented(5). Total: 15. MDM: 20:42 Patient medically screened. rt 23:20 Differential Diagnosis Anxiety disorder. Data reviewed: vital signs, nurses notes. Care rt significantly affected by the following chronic conditions: Major depressive disorder. Care significantly affected by the following Social Determinants of Health: Problems related to primary support group. Counseling: I had a detailed discussion with the patient and/or guardian regarding the historical points, exam findings, and any diagnostic results supporting the discharge/admit diagnosis, the need for outpatient follow up, to return to the emergency department if symptoms worsen or persist or if there are any questions or concerns that arise at home. ED course: Had a long discussion with the patient. I do not believe that the patient is actively suicidal nor did she represent an imminent threat to herself or others. Patient states that she does not wish to be hospitalized and she meets no criteria for involuntary hospitalization nor do I believe that inpatient psychiatric hospitalization is likely to benefit the patient. Patient called someone who she describes as a [id number]. I spoke with this individual, she agrees to be with the patient. Believe that safety plan is most appropriate for this patient. Patient agrees to call 911 or return to emergency department should she develop any suicidal thoughts. Patient will follow-up with her counselor and psychiatrist as an outpatient. Patient is cooperative, has goal-directed thought, good insight into her disease process.. Administered Medications: 21:03 Drug: Diazepam PO 5 mg PO once Route: PO; bm8 22:54 Follow up: Response: No adverse reaction bm8 Disposition Summary: 12/30/23 22:34 Discharge Ordered Notes: Location: Home rt Problem: an acute exacerbation rt Symptoms: have improved rt Condition: Stable rt Diagnosis - Anxiety disorder rt Followup: rt - With: Private Physician - When: 2 - 3 days - Reason: Followup: rt - With: Emergency Department - When: As needed - Reason: Worsening of condition Discharge Instructions: - Discharge Summary Sheet rt - Generalized Anxiety Disorder, Adult rt - Managing Anxiety, Adult rt Forms: - Medication Reconciliation Form rt - Antibiotic Education rt - Prescription Opioid Use rt - Patient Portal Instructions rt - Leadership Thank You Letter rt Prescriptions: - Hydroxyzine HCl 25 mg Oral tablet - take 1 tablet ORAL route every 6 hours As needed; 18 tablet; Refills: 0, rt Product Selection Permitted Signatures: Micheal Arechiga MD MD rt LogGuilherme hodge RN RN tl4 Remi Garza RN RN bm8 Corrections: (The following items were deleted from the chart) 21:14 21:13 PSHx: ; tl4 tl4
[2023-12-30 22:59] VITALS: TEMP 98.6
[2023-12-30 23:02] VITALS: BP 105/74; O2SAT 97
== END 2023-12-30 22:54 | disposition home or self-care (01) ==
LOC: ER 20:22
DX: F41.9 Anxiety disorder, unspecified (principal)
CPT/HCPCS: 99284

== ENCOUNTER 2024-03-31 16:28 | Emergency (ER) | payer OTHER ==
--- OUTSIDE RECORDS SUMMARY | 2024-03-31 16:33 | XMS REPORT | Continuity of Care Document ---
Author Name Unknown Address [address] [facility] [place] [address] [facility] thconnect Address [address] [facility] [place] [address] Care Team Providers Care Felter Tennis Balls Name Role Phone BASIL DAVIS Primary Care Physician Unavaila JAMEEL Katz Attending Clinician Unavailable Jameel Dennison Attending Clinician [phone] NELA LOCKE Attending Clinician Unavailab JAVI Huber Attending Clinician UnavailJAVI Haro Attending Clinician Unavaila josey Doctor Unassigned, [place] Attending Clinician U navailable Lab, Ang - Db Attending Clinician Unavailable GILMA MACDONALD Attending Clinician Unavail able Torres WHCNGilma Colon Attending Clinician + Lab, Ang-Rmchp Attending Clinician Unavailable LEBRON HENSLEY Attending Clinician Unavailable VÍCTOR BENSON Attending Clinician Unavailable Víctor Benson MD Attending Clinician [phone] BRENDA BEARDEN Attending Clinician UnavailBrenda Prasad Attending Clinician [phone] Unknown, Attending Attending Clinician Unavailab BAISL Vaughn Attending Clinician Unavailable Basil Davis MD Attending Clinician [phone] Stephanie Dean Attending Clinician [phone] Josee SCHULZ Rania Attending Clinician [phone] STEPHANIE HOWARD Attending Clinician Unavailable 2, [facility] Attending Clinician Unavailable Lisa LORD, Rachna Attending Clinician [phone] Vaccine, [facility] Attending Clinician Unavailable RACHNA RUBIO Attending Clinician UnavailLebron Finnegan MD Attending Clinician [phone] Licha Ron DO Attending Clinician [phone] LICHA RON Attending Clinician Unavailable Wilber Swanson DO Attending Clinician ANGELA MAHONEY Attending Clinician Unavailable ANDREA MCLAUGHLIN Attending Clinician UnavailANDREA Warren Attending Clinician UnavailAndrea Warren MD Attending Clinician NELA LOCKE Admitting Clinician Unavailab lashae Payers Payer Name Policy Type Policy Number Effective Date Expirati on Date Source [facility] [id number] 2018 00:00:00 Problems Condition Name Condition Details Condition Category Status Onset Date Resolution Date Last Treatment Date Treating Clinician Comments Source examinatio n or test, negative result examinatio n or test, negative result Disease Active 10-12 00:00: 00 [facility] History of miscarriag e History of miscarriag e Disease Active 10-12 00:00: 00 [facility] Nexplanon insertion Nexplanon insertion Disease Active - 00:00: 00 [facility] Need for prophylact ic vaccinatio n against human papillomav irus (HPV) types 6, 11, 16, and 18 Need for prophylact ic vaccinatio n against human papillomav irus (HPV) types 6, 11, 16, and 18 Disease Active 8- 00:00: 00 [facility] ADHD (attention deficit hyperactiv ity disorder), combined type ADHD (attention deficit hyperactiv ity disorder), combined type Disease Active 9- 00:00: 00 [facility] PTSD (post-trau matic stress disorder) PTSD (post-trau matic stress disorder) Disease Active 12-24 00:00: 00 [facility] Primary insomnia Primary insomnia Disease Active 12-24 00:00: 00 [facility] Mild depression Mild depression Disease Active 12-24 00:00: 00 [facility] Anxiety Anxiety Disease Active 12-24 00:00: 00 [facility] Screening for diabetes mellitus (DM) Screening for diabetes mellitus (DM) Disease Active 12-24 00:00: 00 [facility] Suicide attempt Suicide attempt Disease Active 12-24 00:00: 00 [facility] Insomnia, unspecifie d type Insomnia, unspecifie d type Disease Active 12-24 00:00: 00 [facility] Allergies, Adverse Reactions, Alerts Allergy Name Allergy Type Status Severity Reaction(s) Onset Date Inactive Date Treating Clinician Comments Source NO KNOWN ALLERGIE S Drug Class Active [facility] Social History Social Habit Start Date Stop Date Quantity Comments Source [facility] Alcoholic beverage intake 2023-09-04 00:00:00 2023-09-04 00:00:00 .29 /d [facility] Alcohol intake 2023-08-06 00:00:00 2023-08-06 00:00:00 .29 /d [facility] History of Social function 2022-10-12 00:00:00 2022-10-12 00:00:00 [facility] Exposure to SARS-CoV-2 (event) 2022-09-30 00:00:00 2022-10-10 14:54:00 Not sure [facility] Tobacco use and exposure 2021-12-09 00:00:00 2021-12-09 00:00:00 Smokeless tobacco non-user [facility] Sex assigned at 2000 00:00:00 2000 00:00:00 [facility] Smoking Status Start Date Stop Date Source Never smoked tobacco [facility] Medications Ordered Medication Name Filled Medication Name Start Date Stop Date Current Medication? Ordering Clinician Indication Dosage Frequency Signature (SIG) Comments Components Source dexamethaso ne sod phos PF injection 10 mg 09-03 23:30: 00 09-04 00:12 :00 No 10mg 10 mg, Intramuscu lar, ONCE, 1 dose, On Sun09/04/23 at 1830, 1 mL [facility] ibuprofen (IBU) tablet 600 mg 09-03 23:30: 00 09-04 00:14 :00 No 600mg 600 mg, Oral, ONCE, 1 dose, On Sun09/04/23 at 1830, RAHAT [facility] amoxicillin 500 mg capsule 09-03 00:00: 00 09-14 04:59 :00 No [id number] 500mg Take 1 capsule by mouth in the morning and 1 capsule in the evening. Do all this for 10 days. [facility] ondansetron (ZOFRAN-ODT ) disintegrat ing tablet 4 mg 08-06 01:30: 00 08-06 01:27 :00 No 4mg 4 mg, Oral, ONCE, 1 dose, On Sun08/06/23 at 2030, Routine [facility] acetaminoph en (TYLENOL) tablet 1,000 mg 08-06 00:45: 00 08-06 01:27 :00 No 1000mg 1,000 mg, Oral, ONCE, 1 dose, On Sun08/06/23 at 1945, Routine [facility] ondansetron 4 mg disintegrat ing tablet 08-05 00:00: 00 Yes [id number] 4mg Take 1 tablet by mouth every 8 (eight) hours as needed for Nausea and Vomiting (N/V). [facility] etonogestre L (NEXPLANON) implant 68 mg 10-12 16:45: 00 10-12 15:54 :00 No [id number] 68mg [facility] NaCl 0.9% (NS) IV infusion 1,000 mL 07-19 04:15: 00 Yes 1000mL at 999 mL/hr, Intravenou s, CONTINUOUS , Starting on Sun07/18/22 at 2315, Until Discontinu ed, Routine [facility] amoxicillin 500 mg capsule 07-18 00:00: 00 08-16 00:00 :00 No [id number] 500mg Take 1 capsule by mouth in the morning and 1 capsule at noon and 1 capsule in the evening. [facility] FLUoxetine 20 mg capsule 05-19 00:00: 00 Yes [facility] vit calc,iron,f olic ( VITAMIN ORAL) 2021-04 13:14: 13 12-16 00:00 :00 No Take by mouth. [facility] ondansetron 4 mg disintegrat ing tablet 2021-04 00:00: 00 08-16 00:00 :00 No [id number] 4mg Take 1 tablet by mouth every 8 (eight) hours as needed for Nausea and Vomiting (N/V). [facility] traZODone 50 mg tablet 2021-04 00:00: 00 Yes [id number] 50mg Take 1 tablet by mouth at bedtime. [facility] dextroamphe tamine-amph etamine (ADDERALL) 10 mg tablet 01-03 00:00: 00 Yes [id number] 5mg Take 0.5 tablets by mouth in the morning. [facility] QUEtiapine 25 mg tablet 01-03 00:00: 00 Yes [id number] 25mg Take 1 tablet by mouth at bedtime. [facility] traZODone 50 mg tablet 01-03 00:00: 00 Yes [id number] 50mg Take 1 tablet by mouth at bedtime. [facility] fluconazole (DIFLUCAN) 200 mg tablet 12-11 00:00: 00 Yes [id number] 200mg Take 1 tablet by mouth in the morning. [facility] metroNIDAZO LE (FLAGYL) 500 mg tablet 12-11 00:00: 00 12-19 04:59 :00 No [id number] 500mg Take 1 tablet by mouth every 12 (twelve) hours for 7 days. [facility] Nitrofurant oin&Nit. Macrocryst (MACROBID) 100 mg capsule 8 00:00: 00 12-17 04:59 :00 No [id number] 100mg Take 1 capsule by mouth in the morning and 1 capsule in the evening. Do all this for 7 days. [facility] dextroamphe tamine-amph etamine (ADDERALL) 5 mg tablet 8 00:00: 00 Yes [id number] 5mg Take 1 tablet by mouth in the morning. [facility] QUEtiapine 25 mg tablet 12-03 00:00: 00 Yes [id number] 25mg Take 1 tablet by mouth in the morning. [facility] NUVARING 0.12-0.015 mg/24 hr vaginal insert 08-17 00:00: 00 08-16 00:00 :00 No [id number] 1{each} Insert 1 Each into vagina once every month. Insert vaginally and leave in place for 3 consecutiv e weeks, then remove for 1 week. [facility] Immunizations Ordered Immunization Name Filled Immunization Name Date Status Comments Source 9 2021-12-02 00:00:00 Completed [facility] SARS-COV-2 COVID-19 MODERNA 0.25ML BOOSTER VACCINE 2021-12-02 00:00:00 Completed [facility] HPV9 2021-12-02 00:00:00 Completed [facility] SARS-COV-2 COVID-19 MODERNA 0.25ML BOOSTER VACCINE 2021-12-02 00:00:00 Completed [facility] HPV9 2021-12-02 00:00:00 Completed [facility] SARS-COV-2 COVID-19 MODERNA 0.25ML BOOSTER VACCINE 2021-12-02 00:00:00 Completed [facility] HPV9 2021-12-02 00:00:00 Completed [facility] SARS-COV-2 COVID-19 MODERNA 0.25ML BOOSTER VACCINE 2021-12-02 00:00:00 Completed [facility] HPV9 2021-12-02 00:00:00 Completed [facility] SARS-COV-2 COVID-19 MODERNA 0.25ML BOOSTER VACCINE 2021-12-02 00:00:00 Completed [facility] HPV9 2021-12-02 00:00:00 Completed [facility] SARS-COV-2 COVID-19 MODERNA 0.25ML BOOSTER VACCINE 2021-12-02 00:00:00 Completed [facility] HPV9 2021-12-02 00:00:00 Completed [facility] SARS-COV-2 COVID-19 MODERNA 0.25ML BOOSTER VACCINE 2021-12-02 00:00:00 Completed [facility] HPV9 2021-12-02 00:00:00 Completed [facility] SARS-COV-2 COVID-19 MODERNA 0.25ML BOOSTER VACCINE 2021-12-02 00:00:00 Completed [facility] HPV9 2021-12-02 00:00:00 Completed [facility] SARS-COV-2 COVID-19 MODERNA 0.25ML BOOSTER VACCINE 2021-12-02 00:00:00 Completed [facility] HPV9 2021-12-02 00:00:00 Completed [facility] SARS-COV-2 COVID-19 MODERNA 0.25ML BOOSTER VACCINE 2021-12-02 00:00:00 Completed [facility] HPV9 2021-12-02 00:00:00 Completed [facility] SARS-COV-2 COVID-19 MODERNA 0.25ML BOOSTER VACCINE 2021-12-02 00:00:00 Completed [facility] HPV9 2021-12-02 00:00:00 Completed [facility] SARS-COV-2 COVID-19 MODERNA 0.25ML BOOSTER VACCINE 2021-12-02 00:00:00 Completed [facility] HPV9 2021-12-02 00:00:00 Completed [facility] SARS-COV-2 COVID-19 MODERNA 0.25ML BOOSTER VACCINE 2021-12-02 00:00:00 Completed [facility] HPV9 2021-12-02 00:00:00 Completed [facility] SARS-COV-2 COVID-19 MODERNA 0.25ML BOOSTER VACCINE 2021-12-02 00:00:00 Completed [facility] HPV9 2021-12-02 00:00:00 Completed [facility] SARS-COV-2 COVID-19 MODERNA 0.25ML BOOSTER VACCINE 2021-12-02 00:00:00 Completed [facility] HPV9 2021-12-02 00:00:00 Completed [facility] SARS-COV-2 COVID-19 MODERNA 0.25ML BOOSTER VACCINE 2021-12-02 00:00:00 Completed [facility] HPV9 2021-12-02 00:00:00 Completed [facility] SARS-COV-2 COVID-19 MODERNA 0.25ML BOOSTER VACCINE 2021-12-02 00:00:00 Completed [facility] HPV9 2021-12-02 00:00:00 Completed [facility] SARS-COV-2 COVID-19 MODERNA 0.25ML BOOSTER VACCINE 2021-12-02 00:00:00 Completed [facility] SARS-COV-2 COVID-19 MODERNA 12+ YRS VACCINE 2020-12-23 00:00:00 Completed [facility] SARS-COV-2 COVID-19 MODERNA 12+ YRS VACCINE 2020-12-23 00:00:00 Completed [facility] SARS-COV-2 COVID-19 MODERNA 12+ YRS VACCINE 2020-12-23 00:00:00 Completed [facility] SARS-COV-2 COVID-19 MODERNA 12+ YRS VACCINE 2020-12-23 00:00:00 Completed [facility] SARS-COV-2 COVID-19 MODERNA 12+ YRS VACCINE 2020-12-23 00:00:00 Completed [facility] SARS-COV-2 COVID-19 MODERNA 12+ YRS VACCINE 2020-12-23 00:00:00 Completed [facility] SARS-COV-2 COVID-19 MODERNA 12+ YRS VACCINE 2020-12-23 00:00:00 Completed [facility] SARS-COV-2 COVID-19 MODERNA 12+ YRS VACCINE 2020-12-23 00:00:00 Completed [facility] SARS-COV-2 COVID-19 MODERNA 12+ YRS VACCINE 2020-12-23 00:00:00 Completed [facility] SARS-COV-2 COVID-19 MODERNA 12+ YRS VACCINE 2020-12-23 00:00:00 Completed [facility] SARS-COV-2 COVID-19 MODERNA 12+ YRS VACCINE 2020-12-23 00:00:00 Completed [facility] SARS-COV-2 COVID-19 MODERNA 12+ YRS VACCINE 2020-12-23 00:00:00 Completed [facility] SARS-COV-2 COVID-19 MODERNA 12+ YRS VACCINE 2020-12-23 00:00:00 Completed [facility] SARS-COV-2 COVID-19 MODERNA 12+ YRS VACCINE 2020-12-23 00:00:00 Completed [facility] SARS-COV-2 COVID-19 MODERNA 12+ YRS VACCINE 2020-12-23 00:00:00 Completed [facility] SARS-COV-2 COVID-19 MODERNA 12+ YRS VACCINE 2020-12-23 00:00:00 Completed [facility] SARS-COV-2 COVID-19 MODERNA 12+ YRS VACCINE 2020-12-23 00:00:00 Completed [facility] SARS-COV-2 COVID-19 MODERNA 12+ YRS VACCINE 2020-12-23 00:00:00 Completed [facility] SARS-COV-2 COVID-19 MODERNA 12+ YRS VACCINE 2020-11-25 00:00:00 Completed [facility] SARS-COV-2 COVID-19 MODERNA 12+ YRS VACCINE 2020-11-25 00:00:00 Completed [facility] SARS-COV-2 COVID-19 MODERNA 12+ YRS VACCINE 2020-11-25 00:00:00 Completed [facility] SARS-COV-2 COVID-19 MODERNA 12+ YRS VACCINE 2020-11-25 00:00:00 Completed [facility] SARS-COV-2 COVID-19 MODERNA 12+ YRS VACCINE 2020-11-25 00:00:00 Completed [facility] SARS-COV-2 COVID-19 MODERNA 12+ YRS VACCINE 2020-11-25 00:00:00 Completed [facility] SARS-COV-2 COVID-19 MODERNA 12+ YRS VACCINE 2020-11-25 00:00:00 Completed [facility] SARS-COV-2 COVID-19 MODERNA 12+ YRS VACCINE 2020-11-25 00:00:00 Completed [facility] SARS-COV-2 COVID-19 MODERNA 12+ YRS VACCINE 2020-11-25 00:00:00 Completed [facility] SARS-COV-2 COVID-19 MODERNA 12+ YRS VACCINE 2020-11-25 00:00:00 Completed [facility] SARS-COV-2 COVID-19 MODERNA 12+ YRS VACCINE 2020-11-25 00:00:00 Completed [facility] SARS-COV-2 COVID-19 MODERNA 12+ YRS VACCINE 2020-11-25 00:00:00 Completed [facility] SARS-COV-2 COVID-19 MODERNA 12+ YRS VACCINE 2020-11-25 00:00:00 Completed [facility] SARS-COV-2 COVID-19 MODERNA 12+ YRS VACCINE 2020-11-25 00:00:00 Completed [facility] SARS-COV-2 COVID-19 MODERNA 12+ YRS VACCINE 2020-11-25 00:00:00 Completed [facility] SARS-COV-2 COVID-19 MODERNA 12+ YRS VACCINE 2020-11-25 00:00:00 Completed [facility] SARS-COV-2 COVID-19 MODERNA 12+ YRS VACCINE 2020-11-25 00:00:00 Completed [facility] SARS-COV-2 COVID-19 MODERNA 12+ YRS VACCINE 2020-11-25 00:00:00 Completed [facility] TDAP (ADACEL) VACCINE 2018-10-15 00:00:00 Completed [facility] TDAP (ADACEL) VACCINE 2018-10-15 00:00:00 Completed [facility] TDAP (ADACEL) VACCINE 2018-10-15 00:00:00 Completed [facility] TDAP (ADACEL) VACCINE 2018-10-15 00:00:00 Completed [facility] TDAP (ADACEL) VACCINE 2018-10-15 00:00:00 Completed [facility] TDAP (ADACEL) VACCINE 2018-10-15 00:00:00 Completed [facility] TDAP (ADACEL) VACCINE 2018-10-15 00:00:00 Completed [facility] TDAP (ADACEL) VACCINE 2018-10-15 00:00:00 Completed [facility] TDAP (ADACEL) VACCINE 2018-10-15 00:00:00 Completed [facility] TDAP (ADACEL) VACCINE 2018-10-15 00:00:00 Completed [facility] TDAP (ADACEL) VACCINE 2018-10-15 00:00:00 Completed [facility] TDAP (ADACEL) VACCINE 2018-10-15 00:00:00 Completed [facility] TDAP (ADACEL) VACCINE 2018-10-15 00:00:00 Completed [facility] TDAP (ADACEL) VACCINE 2018-10-15 00:00:00 Completed [facility] TDAP (ADACEL) VACCINE 2018-10-15 00:00:00 Completed [facility] TDAP (ADACEL) VACCINE 2018-10-15 00:00:00 Completed [facility] TDAP (ADACEL) VACCINE 2018-10-15 00:00:00 Completed [facility] TDAP (ADACEL) VACCINE 2018-10-15 00:00:00 Completed [facility] Influenza Virus Vaccine Quad .5 mL IM 6+ MO 2018-06-12 00:00:00 Completed [facility] Influenza Virus Vaccine Quad .5 mL IM 6+ MO 2018-06-12 00:00:00 Completed [facility] Influenza Virus Vaccine Quad .5 mL IM 6+ MO 2018-06-12 00:00:00 Completed [facility] Influenza Virus Vaccine Quad .5 mL IM 6+ MO 2018-06-12 00:00:00 Completed [facility] Influenza Virus Vaccine Quad .5 mL IM 6+ MO 2018-06-12 00:00:00 Completed [facility] Influenza Virus Vaccine Quad .5 mL IM 6+ MO 2018-06-12 00:00:00 Completed [facility] Influenza Virus Vaccine Quad .5 mL IM 6+ MO 2018-06-12 00:00:00 Completed [facility] Influenza Virus Vaccine Quad .5 mL IM 6+ MO 2018-06-12 00:00:00 Completed [facility] Influenza Virus Vaccine Quad .5 mL IM 6+ MO 2018-06-12 00:00:00 Completed [facility] Influenza Virus Vaccine Quad .5 mL IM 6+ MO 2018-06-12 00:00:00 Completed [facility] Influenza Virus Vaccine Quad .5 mL IM 6+ MO 2018-06-12 00:00:00 Completed [facility] Influenza Virus Vaccine Quad .5 mL IM 6+ MO 2018-06-12 00:00:00 Completed [facility] Influenza Virus Vaccine Quad .5 mL IM 6+ MO 2018-06-12 00:00:00 Completed [facility] Influenza Virus Vaccine Quad .5 mL IM 6+ MO 2018-06-12 00:00:00 Completed [facility] Influenza Virus Vaccine Quad .5 mL IM 6+ MO 2018-06-12 00:00:00 Completed [facility] Influenza Virus Vaccine Quad .5 mL IM 6+ MO 2018-06-12 00:00:00 Completed [facility] Influenza Virus Vaccine Quad .5 mL IM 6+ MO 2018-06-12 00:00:00 Completed [facility] Influenza Virus Vaccine Quad .5 mL IM 6+ MO 2018-06-12 00:00:00 Completed [facility] Influenza Virus Vaccine Quad .5 mL IM 6+ MO 2018-06-12 00:00:00 Completed [facility] Influenza Virus Vaccine Nasal 2015-04-27 00:00:00 Completed [facility] Influenza Virus Vaccine Nasal 2015-04-27 00:00:00 Completed [facility] Influenza Virus Vaccine Nasal 2015-04-27 00:00:00 Completed [facility] Influenza Virus Vaccine Nasal 2015-04-27 00:00:00 Completed [facility] Influenza Virus Vaccine Nasal 2015-04-27 00:00:00 Completed [facility] Influenza Virus Vaccine Nasal 2015-04-27 00:00:00 Completed [facility] Influenza Virus Vaccine Nasal 2015-04-27 00:00:00 Completed [facility] Influenza Virus Vaccine Nasal 2015-04-27 00:00:00 Completed [facility] Influenza Virus Vaccine Nasal 2015-04-27 00:00:00 Completed [facility] Influenza Virus Vaccine Nasal 2015-04-27 00:00:00 Completed [facility] Influenza Virus Vaccine Nasal 2015-04-27 00:00:00 Completed [facility] HPV 2015-01-07 00:00:00 Completed [facility] Meningococcal Oligosaccharide (groups A, C, Y and W-135) conjugate vaccine (MCV4O) 2015-01-07 00:00:00 Completed [facility] HPV 2015-01-07 00:00:00 Completed [facility] Meningococcal Oligosaccharide (groups A, C, Y and W-135) conjugate vaccine (MCV4O) 2015-01-07 00:00:00 Completed [facility] HPV 2015-01-07 00:00:00 Completed [facility] Meningococcal Oligosaccharide (groups A, C, Y and W-135) conjugate vaccine (MCV4O) 2015-01-07 00:00:00 Completed [facility] HPV 2015-01-07 00:00:00 Completed [facility] Meningococcal Oligosaccharide (groups A, C, Y and W-135) conjugate vaccine (MCV4O) 2015-01-07 00:00:00 Completed [facility] HPV 2015-01-07 00:00:00 Completed [facility] Meningococcal Oligosaccharide (groups A, C, Y and W-135) conjugate vaccine (MCV4O) 2015-01-07 00:00:00 Completed [facility] HPV 2015-01-07 00:00:00 Completed [facility] Meningococcal Oligosaccharide (groups A, C, Y and W-135) conjugate vaccine (MCV4O) 2015-01-07 00:00:00 Completed [facility] HPV 2015-01-07 00:00:00 Completed [facility] Meningococcal Oligosaccharide (groups A, C, Y and W-135) conjugate vaccine (MCV4O) 2015-01-07 00:00:00 Completed [facility] HPV 2015-01-07 00:00:00 Completed [facility] Meningococcal Oligosaccharide (groups A, C, Y and W-135) conjugate vaccine (MCV4O) 2015-01-07 00:00:00 Completed [facility] HPV 2015-01-07 00:00:00 Completed [facility] Meningococcal Oligosaccharide (groups A, C, Y and W-135) conjugate vaccine (MCV4O) 2015-01-07 00:00:00 Completed [facility] HPV 2015-01-07 00:00:00 Completed [facility] Meningococcal Oligosaccharide (groups A, C, Y and W-135) conjugate vaccine (MCV4O) 2015-01-07 00:00:00 Completed [facility] HPV 2015-01-07 00:00:00 Completed [facility] Meningococcal Oligosaccharide (groups A, C, Y and W-135) conjugate vaccine (MCV4O) 2015-01-07 00:00:00 Completed [facility] Meningococcal Oligosaccharide (groups A, C, Y and W-135) conjugate vaccine (MCV4O) 2014-02-23 00:00:00 Completed [facility] Influenza Virus Vaccine Quad Nasal 2014-02-23 00:00:00 Completed [facility] Influenza Virus Vaccine Quad Nasal 2014-02-23 00:00:00 Completed [facility] Meningococcal Oligosaccharide (groups A, C, Y and W-135) conjugate vaccine (MCV4O) 2014-02-23 00:00:00 Completed [facility] Influenza Virus Vaccine Quad Nasal 2014-02-23 00:00:00 Completed [facility] Meningococcal Oligosaccharide (groups A, C, Y and W-135) conjugate vaccine (MCV4O) 2014-02-23 00:00:00 Completed [facility] Influenza Virus Vaccine Quad Nasal 2014-02-23 00:00:00 Completed [facility] Meningococcal Oligosaccharide (groups A, C, Y and W-135) conjugate vaccine (MCV4O) 2014-02-23 00:00:00 Completed [facility] Influenza Virus Vaccine Quad Nasal 2014-02-23 00:00:00 Completed [facility] Meningococcal Oligosaccharide (groups A, C, Y and W-135) conjugate vaccine (MCV4O) 2014-02-23 00:00:00 Completed [facility] Influenza Virus Vaccine Quad Nasal 2014-02-23 00:00:00 Completed [facility] Meningococcal Oligosaccharide (groups A, C, Y and W-135) conjugate vaccine (MCV4O) 2014-02-23 00:00:00 Completed [facility] Influenza Virus Vaccine Quad Nasal 2014-02-23 00:00:00 Completed [facility] Meningococcal Oligosaccharide (groups A, C, Y and W-135) conjugate vaccine (MCV4O) 2014-02-23 00:00:00 Completed [facility] Influenza Virus Vaccine Quad Nasal 2014-02-23 00:00:00 Completed [facility] Meningococcal Oligosaccharide (groups A, C, Y and W-135) conjugate vaccine (MCV4O) 2014-02-23 00:00:00 Completed [facility] Influenza Virus Vaccine Quad Nasal 2014-02-23 00:00:00 Completed [facility] Meningococcal Oligosaccharide (groups A, C, Y and W-135) conjugate vaccine (MCV4O) 2014-02-23 00:00:00 Completed [facility] Influenza Virus Vaccine Quad Nasal 2014-02-23 00:00:00 Completed [facility] Meningococcal Oligosaccharide (groups A, C, Y and W-135) conjugate vaccine (MCV4O) 2014-02-23 00:00:00 Completed [facility] Influenza Virus Vaccine Quad Nasal 2014-02-23 00:00:00 Completed [facility] Meningococcal Oligosaccharide (groups A, C, Y and W-135) conjugate vaccine (MCV4O) 2014-02-23 00:00:00 Completed [facility] HPV 2012-01-01 00:00:00 Completed [facility] Influenza Virus Vaccine - Whole 2012-01-01 00:00:00 Completed [facility] Influenza Virus Vaccine - Whole 2012-01-01 00:00:00 Completed [facility] HPV 2012-01-01 00:00:00 Completed [facility] Influenza Virus Vaccine - Whole 2012-01-01 00:00:00 Completed [facility] HPV 2012-01-01 00:00:00 Completed [facility] Influenza Virus Vaccine - Whole 2012-01-01 00:00:00 Completed [facility] HPV 2012-01-01 00:00:00 Completed [facility] Influenza Virus Vaccine - Whole 2012-01-01 00:00:00 Completed [facility] HPV 2012-01-01 00:00:00 Completed [facility] Influenza Virus Vaccine - Whole 2012-01-01 00:00:00 Completed [facility] HPV 2012-01-01 00:00:00 Completed [facility] Influenza Virus Vaccine - Whole 2012-01-01 00:00:00 Completed [facility] HPV 2012-01-01 00:00:00 Completed [facility] Influenza Virus Vaccine - Whole 2012-01-01 00:00:00 Completed [facility] HPV 2012-01-01 00:00:00 Completed [facility] Influenza Virus Vaccine - Whole 2012-01-01 00:00:00 Completed [facility] HPV 2012-01-01 00:00:00 Completed [facility] Influenza Virus Vaccine - Whole 2012-01-01 00:00:00 Completed [facility] HPV 2012-01-01 00:00:00 Completed [facility] Influenza Virus Vaccine - Whole 2012-01-01 00:00:00 Completed [facility] HPV 2012-01-01 00:00:00 Completed [facility] HPV Unspecified 2011-10-31 00:00:00 Completed [facility] HPV Unspecified 2011-10-31 00:00:00 Completed [facility] HPV Unspecified 2011-10-31 00:00:00 Completed [facility] HPV Unspecified 2011-10-31 00:00:00 Completed [facility] HPV Unspecified 2011-10-31 00:00:00 Completed [facility] HPV Unspecified 2011-10-31 00:00:00 Completed [facility] HPV Unspecified 2011-10-31 00:00:00 Completed [facility] HPV Unspecified 2011-10-31 00:00:00 Completed [facility] HPV Unspecified 2011-10-31 00:00:00 Completed [facility] HPV Unspecified 2011-10-31 00:00:00 Completed [facility] HPV Unspecified 2011-10-31 00:00:00 Completed [facility] HPV Unspecified 2011-05-18 00:00:00 Completed [facility] HPV Unspecified 2011-05-18 00:00:00 Completed [facility] HPV Unspecified 2011-05-18 00:00:00 Completed [facility] HPV Unspecified 2011-05-18 00:00:00 Completed [facility] HPV Unspecified 2011-05-18 00:00:00 Completed [facility] HPV Unspecified 2011-05-18 00:00:00 Completed [facility] HPV Unspecified 2011-05-18 00:00:00 Completed [facility] HPV Unspecified 2011-05-18 00:00:00 Completed [facility] HPV Unspecified 2011-05-18 00:00:00 Completed [facility] HPV Unspecified 2011-05-18 00:00:00 Completed [facility] HPV Unspecified 2011-05-18 00:00:00 Completed [facility] Meningococcal Polysaccharide (groups A, C, Y and W-135) conjugate vaccine (MCV4P) 2009-12-01 00:00:00 Completed [facility] TDAP 2009-12-01 00:00:00 Completed [facility] Meningococcal Polysaccharide (groups A, C, Y and W-135) conjugate vaccine (MCV4P) 2009-12-01 00:00:00 Completed [facility] TDAP 2009-12-01 00:00:00 Completed [facility] Meningococcal Polysaccharide (groups A, C, Y and W-135) conjugate vaccine (MCV4P) 2009-12-01 00:00:00 Completed [facility] TDAP 2009-12-01 00:00:00 Completed [facility] Meningococcal Polysaccharide (groups A, C, Y and W-135) conjugate vaccine (MCV4P) 2009-12-01 00:00:00 Completed [facility] TDAP 2009-12-01 00:00:00 Completed [facility] Meningococcal Polysaccharide (groups A, C, Y and W-135) conjugate vaccine (MCV4P) 2009-12-01 00:00:00 Completed [facility] TDAP 2009-12-01 00:00:00 Completed [facility] Meningococcal Polysaccharide (groups A, C, Y and W-135) conjugate vaccine (MCV4P) 2009-12-01 00:00:00 Completed [facility] TDAP 2009-12-01 00:00:00 Completed [facility] Meningococcal Polysaccharide (groups A, C, Y and W-135) conjugate vaccine (MCV4P) 2009-12-01 00:00:00 Completed [facility] TDAP 2009-12-01 00:00:00 Completed [facility] Meningococcal Polysaccharide (groups A, C, Y and W-135) conjugate vaccine (MCV4P) 2009-12-01 00:00:00 Completed [facility] TDAP 2009-12-01 00:00:00 Completed [facility] Meningococcal Polysaccharide (groups A, C, Y and W-135) conjugate vaccine (MCV4P) 2009-12-01 00:00:00 Completed [facility] TDAP 2009-12-01 00:00:00 Completed [facility] Meningococcal Polysaccharide (groups A, C, Y and W-135) conjugate vaccine (MCV4P) 2009-12-01 00:00:00 Completed [facility] TDAP 2009-12-01 00:00:00 Completed [facility] Meningococcal Polysaccharide (groups A, C, Y and W-135) conjugate vaccine (MCV4P) 2009-12-01 00:00:00 Completed [facility] TDAP 2009-12-01 00:00:00 Completed [facility] HIB 4 Dose Schedule 1998 00:00:00 Completed [facility] IPV 1998 00:00:00 Completed [facility] DTaP, Unspecified Formulation 1998 00:00:00 Completed [facility] Hep B, Adol or Pedi Dosage 1998 00:00:00 Completed [facility] DTaP, Unspecified Formulation 1998 00:00:00 Completed [facility] Hep B, Adol or Pedi Dosage 1998 00:00:00 Completed [facility] HIB 4 Dose Schedule 1998 00:00:00 Completed [facility] IPV 1998 00:00:00 Completed [facility] DTaP, Unspecified Formulation 1998 00:00:00 Completed [facility] Hep B, Adol or Pedi Dosage 1998 00:00:00 Completed [facility] HIB 4 Dose Schedule 1998 00:00:00 Completed [facility] IPV 1998 00:00:00 Completed [facility] DTaP, Unspecified Formulation 1998 00:00:00 Completed [facility] Hep B, Adol or Pedi Dosage 1998 00:00:00 Completed [facility] HIB 4 Dose Schedule 1998 00:00:00 Completed [facility] IPV 1998 00:00:00 Completed [facility] DTaP, Unspecified Formulation 1998 00:00:00 Completed [facility] Hep B, Adol or Pedi Dosage 1998 00:00:00 Completed [facility] HIB 4 Dose Schedule 1998 00:00:00 Completed [facility] IPV 1998 00:00:00 Completed [facility] DTaP, Unspecified Formulation 1998 00:00:00 Completed [facility] Hep B, Adol or Pedi Dosage 1998 00:00:00 Completed [facility] HIB 4 Dose Schedule 1998 00:00:00 Completed [facility] IPV 1998 00:00:00 Completed [facility] DTaP, Unspecified Formulation 1998 00:00:00 Completed [facility] Hep B, Adol or Pedi Dosage 1998 00:00:00 Completed [facility] HIB 4 Dose Schedule 1998 00:00:00 Completed [facility] IPV 1998 00:00:00 Completed [facility] DTaP, Unspecified Formulation 1998 00:00:00 Completed [facility] Hep B, Adol or Pedi Dosage 1998 00:00:00 Completed [facility] HIB 4 Dose Schedule 1998 00:00:00 Completed [facility] IPV 1998 00:00:00 Completed [facility] DTaP, Unspecified Formulation 1998 00:00:00 Completed [facility] Hep B, Adol or Pedi Dosage 1998 00:00:00 Completed [facility] HIB 4 Dose Schedule 1998 00:00:00 Completed [facility] IPV 1998 00:00:00 Completed [facility] DTaP, Unspecified Formulation 1998 00:00:00 Completed [facility] Hep B, Adol or Pedi Dosage 1998 00:00:00 Completed [facility] HIB 4 Dose Schedule 1998 00:00:00 Completed [facility] IPV 1998 00:00:00 Completed [facility] DTaP, Unspecified Formulation 1998 00:00:00 Completed [facility] Hep B, Adol or Pedi Dosage 1998 00:00:00 Completed [facility] HIB 4 Dose Schedule 1998 00:00:00 Completed [facility] IPV 1998 00:00:00 Completed [facility] Hep B, Adol or Pedi Dosage 1998 00:00:00 Completed [facility] Hep B, Adol or Pedi Dosage 1998 00:00:00 Completed [facility] Hep B, Adol or Pedi Dosage 1998 00:00:00 Completed [facility] Hep B, Adol or Pedi Dosage 1998 00:00:00 Completed [facility] Hep B, Adol or Pedi Dosage 1998 00:00:00 Completed [facility] Hep B, Adol or Pedi Dosage 1998 00:00:00 Completed [facility] Hep B, Adol or Pedi Dosage 1998 00:00:00 Completed [facility] Hep B, Adol or Pedi Dosage 1998 00:00:00 Completed [facility] Hep B, Adol or Pedi Dosage 1998 00:00:00 Completed [facility] Hep B, Adol or Pedi Dosage 1998 00:00:00 Completed [facility] Hep B, Adol or Pedi Dosage 1998 00:00:00 Completed [facility] Influenza Virus Vaccine Quad .5 mL IM 6+ MO (FLUZONE/FLULAVAL/FLU ARIX) Unknown Completed [facility] TDAP (ADACEL) VACCINE Unknown Completed [facility] SARS-COV-2 COVID-19 MODERNA 12+ YRS VACCINE Unknown Completed [facility] HPV9 Unknown Completed [facility] DTaP, Unspecified Formulation Unknown Completed [facility] Influenza Virus Vaccine Quad Nasal (Flumist) Unknown Completed [facility] Influenza Virus Vaccine - Whole Unknown Completed [facility] Influenza Virus Vaccine Nasal Unknown Completed [facility] Hep B, Adol or Pedi Dosage Unknown Completed [facility] HIB 4 Dose Schedule Unknown Completed [facility] HPV Unspecified Unknown Completed [facility] HPV Unknown Completed [facility] Meningococcal Oligosaccharide (groups A, C, Y and W-135) conjugate vaccine (MCV4O) Unknown Completed [facility] Meningococcal Polysaccharide (groups A, C, Y and W-135) conjugate vaccine (MCV4P) Unknown Completed [facility] IPV Unknown Completed [facility] Influenza Virus Vaccine Quad .5 mL IM 6+ MO (FLUZONE/FLULAVAL/FLU ARIX) Unknown Completed [facility] TDAP (ADACEL) VACCINE Unknown Completed [facility] SARS-COV-2 COVID-19 MODERNA 12+ YRS VACCINE Unknown Completed [facility] HPV9 Unknown Completed [facility] DTaP, Unspecified Formulation Unknown Completed [facility] Influenza Virus Vaccine Quad Nasal (Flumist) Unknown Completed [facility] Influenza Virus Vaccine - Whole Unknown Completed [facility] Influenza Virus Vaccine Nasal Unknown Completed [facility] Hep B, Adol or Pedi Dosage Unknown Completed [facility] HIB 4 Dose Schedule Unknown Completed [facility] HPV Unspecified Unknown Completed [facility] HPV Unknown Completed [facility] Meningococcal Oligosaccharide (groups A, C, Y and W-135) conjugate vaccine (MCV4O) Unknown Completed [facility] Meningococcal Polysaccharide (groups A, C, Y and W-135) conjugate vaccine (MCV4P) Unknown Completed [facility] IPV Unknown Completed [facility] Influenza Virus Vaccine Quad .5 mL IM 6+ MO (FLUZONE/FLULAVAL/FLU ARIX) Unknown Completed [facility] TDAP (ADACEL) VACCINE Unknown Completed [facility] SARS-COV-2 COVID-19 MODERNA 12+ YRS VACCINE Unknown Completed [facility] HPV9 Unknown Completed [facility] DTaP, Unspecified Formulation Unknown Completed [facility] Influenza Virus Vaccine Quad Nasal (Flumist) Unknown Completed [facility] Influenza Virus Vaccine - Whole Unknown Completed [facility] Influenza Virus Vaccine Nasal Unknown Completed [facility] Hep B, Adol or Pedi Dosage Unknown Completed [facility] HIB 4 Dose Schedule Unknown Completed [facility] HPV Unspecified Unknown Completed [facility] HPV Unknown Completed [facility] Meningococcal Oligosaccharide (groups A, C, Y and W-135) conjugate vaccine (MCV4O) Unknown Completed [facility] Meningococcal Polysaccharide (groups A, C, Y and W-135) conjugate vaccine (MCV4P) Unknown Completed [facility] IPV Unknown Completed [facility] Influenza Virus Vaccine Quad .5 mL IM 6+ MO (FLUZONE/FLULAVAL/FLU ARIX) Unknown Completed [facility] TDAP (ADACEL) VACCINE Unknown Completed [facility] SARS-COV-2 COVID-19 MODERNA 12+ YRS VACCINE Unknown Completed [facility] HPV9 Unknown Completed [facility] DTaP, Unspecified Formulation Unknown Completed [facility] Influenza Virus Vaccine Quad Nasal (Flumist) Unknown Completed [facility] Influenza Virus Vaccine - Whole Unknown Completed [facility] Influenza Virus Vaccine Nasal Unknown Completed [facility] Hep B, Adol or Pedi Dosage Unknown Completed [facility] HIB 4 Dose Schedule Unknown Completed [facility] HPV Unspecified Unknown Completed [facility] HPV Unknown Completed [facility] Meningococcal Oligosaccharide (groups A, C, Y and W-135) conjugate vaccine (MCV4O) Unknown Completed [facility] Meningococcal Polysaccharide (groups A, C, Y and W-135) conjugate vaccine (MCV4P) Unknown Completed [facility] IPV Unknown Completed [facility] Influenza Virus Vaccine Quad .5 mL IM 6+ MO (FLUZONE/FLULAVAL/FLU ARIX) Unknown Completed [facility] TDAP (ADACEL) VACCINE Unknown Completed [facility] SARS-COV-2 COVID-19 MODERNA 12+ YRS VACCINE Unknown Completed [facility] HPV9 Unknown Completed [facility] DTaP, Unspecified Formulation Unknown Completed [facility] Influenza Virus Vaccine Quad Nasal (Flumist) Unknown Completed [facility] Influenza Virus Vaccine - Whole Unknown Completed [facility] Influenza Virus Vaccine Nasal Unknown Completed [facility] Hep B, Adol or Pedi Dosage Unknown Completed [facility] HIB 4 Dose Schedule Unknown Completed [facility] HPV Unspecified Unknown Completed [facility] HPV Unknown Completed [facility] Meningococcal Oligosaccharide (groups A, C, Y and W-135) conjugate vaccine (MCV4O) Unknown Completed [facility] Meningococcal Polysaccharide (groups A, C, Y and W-135) conjugate vaccine (MCV4P) Unknown Completed [facility] IPV Unknown Completed [facility] Influenza Virus Vaccine Quad .5 mL IM 6+ MO (FLUZONE/FLULAVAL/FLU ARIX) Unknown Completed [facility] TDAP (ADACEL) VACCINE Unknown Completed [facility] SARS-COV-2 COVID-19 MODERNA 12+ YRS VACCINE Unknown Completed [facility] HPV9 Unknown Completed [facility] DTaP, Unspecified Formulation Unknown Completed [facility] Influenza Virus Vaccine Quad Nasal (Flumist) Unknown Completed [facility] Influenza Virus Vaccine - Whole Unknown Completed [facility] Influenza Virus Vaccine Nasal Unknown Completed [facility] Hep B, Adol or Pedi Dosage Unknown Completed [facility] HIB 4 Dose Schedule Unknown Completed [facility] HPV Unspecified Unknown Completed [facility] HPV Unknown Completed [facility] Meningococcal Oligosaccharide (groups A, C, Y and W-135) conjugate vaccine (MCV4O) Unknown Completed [facility] Meningococcal Polysaccharide (groups A, C, Y and W-135) conjugate vaccine (MCV4P) Unknown Completed [facility] IPV Unknown Completed [facility] Vital Signs Vital Name Observation Time Observation Value Comments S ource Heart rate 2023-09-05 00:57:32 110 /min [facility] Body temperature 2023-09-05 00:57:32 37.67 [facility] Respiratory rate 2023-09-05 00:57:32 18 /min [facility] Oxygen saturation in Arterial blood by Pulse oximetry 2023-09-05 00:57:32 97 /min [facility] Systolic blood pressure 2023-09-05 00:11:22 112 mm[Hg] [facility] Diastolic blood pressure 2023-09-05 00:11:22 79 mm[Hg] [facility] Body height 2023-09-04 23:08:00 154.9 cm [facility] Body weight 2023-09-04 23:08:00 47.628 kg [facility] BMI 2023-09-04 23:08:00 19.84 kg/m2 [facility] Systolic blood pressure 2023-08-07 00:16:00 121 mm[Hg] [facility] Diastolic blood pressure 2023-08-07 00:16:00 81 mm[Hg] [facility] Heart rate 2023-08-07 00:16:00 88 /min [facility] Body temperature 2023-08-07 00:16:00 36.89 [facility] Respiratory rate 2023-08-07 00:16:00 16 /min [facility] Body height 2023-08-07 00:16:00 154.9 cm [facility] Body weight 2023-08-07 00:16:00 47.628 kg [facility] BMI 2023-08-07 00:16:00 19.84 kg/m2 [facility] Oxygen saturation in Arterial blood by Pulse oximetry 2023-08-07 00:16:00 100 /min [facility] Systolic blood pressure 2022-10-12 13:54:00 104 mm[Hg] [facility] Diastolic blood pressure 2022-10-12 13:54:00 74 mm[Hg] [facility] Heart rate 2022-10-12 13:54:00 71 /min [facility] Respiratory rate 2022-10-12 13:54:00 18 /min [facility] Body weight 2022-10-12 13:54:00 48.444 kg [facility] BMI 2022-10-12 13:54:00 20.18 kg/m2 [facility] Oxygen saturation in Arterial blood by Pulse oximetry 2022-10-12 13:54:00 100 /min [facility] Systolic blood pressure 2022-10-10 18:13:00 111 mm[Hg] [facility] Diastolic blood pressure 2022-10-10 18:13:00 57 mm[Hg] [facility] Heart rate 2022-10-10 18:13:00 77 /min [facility] Body temperature 2022-10-10 18:13:00 36.72 [facility] Respiratory rate 2022-10-10 18:13:00 16 /min [facility] Body height 2022-10-10 18:13:00 154.9 cm [facility] Body weight 2022-10-10 18:13:00 48.49 kg [facility] BMI 2022-10-10 18:13:00 20.20 kg/m2 [facility] Oxygen saturation in Arterial blood by Pulse oximetry 2022-10-10 18:13:00 95 /min [facility] Systolic blood pressure 2022-08-30 19:04:00 99 mm[Hg] [facility] Diastolic blood pressure 2022-08-30 19:04:00 49 mm[Hg] [facility] Heart rate 2022-08-30 19:04:00 85 /min [facility] Body temperature 2022-08-30 19:04:00 36.11 [facility] Respiratory rate 2022-08-30 19:04:00 18 /min [facility] Body height 2022-08-30 19:04:00 154.9 cm [facility] Body weight 2022-08-30 19:04:00 48.671 kg [facility] BMI 2022-08-30 19:04:00 20.27 kg/m2 [facility] Systolic blood pressure 2022-08-16 15:06:00 119 mm[Hg] [facility] Diastolic blood pressure 2022-08-16 15:06:00 87 mm[Hg] [facility] Heart rate 2022-08-16 15:06:00 95 /min [facility] Body temperature 2022-08-16 15:06:00 36.44 [facility] Respiratory rate 2022-08-16 15:06:00 18 /min [facility] Body height 2022-08-16 15:06:00 154.9 cm [facility] Body weight 2022-08-16 15:06:00 49.079 kg [facility] BMI 2022-08-16 15:06:00 20.44 kg/m2 [facility] Heart rate 2022-07-19 05:03:00 110 /min [facility] Systolic blood pressure 2022-07-19 05:02:00 107 mm[Hg] [facility] Diastolic blood pressure 2022-07-19 05:02:00 54 mm[Hg] [facility] Respiratory rate 2022-07-19 05:02:00 18 /min [facility] Oxygen saturation in Arterial blood by Pulse oximetry 2022-07-19 05:02:00 96 /min [facility] Body height 2022-07-19 01:58:00 154.9 cm [facility] Body weight 2022-07-19 01:58:00 49.896 kg [facility] BMI 2022-07-19 01:58:00 20.78 kg/m2 [facility] Body temperature 2022-07-19 01:57:00 36.72 [facility] Systolic blood pressure 2022-04-06 16:23:00 104 mm[Hg] [facility] Diastolic blood pressure 2022-04-06 16:23:00 58 mm[Hg] [facility] Heart rate 2022-04-06 16:23:00 107 /min [facility] Body temperature 2022-04-06 16:23:00 37.06 [facility] Respiratory rate 2022-04-06 16:23:00 16 /min [facility] Body height 2022-04-06 16:23:00 154.9 [facility] 2022-04-06 16:23:00 50.349 kg [facility] BMI 2022-04-06 16:23:00 20.97 kg/m2 [facility] Oxygen saturation in Arterial blood by Pulse oximetry 2022-04-06 16:23:00 99 /min [facility] Systolic blood pressure 2018-06-27 20:20:00 115 mm[Hg] [facility] Diastolic blood pressure 2018-06-27 20:20:00 78 mm[Hg] [facility] Heart rate 2018-06-27 20:20:00 98 /min [facility] Body temperature 2018-06-27 20:20:00 36.78 [facility] Respiratory rate 2018-06-27 20:20:00 18 /min [facility] Body height 2018-06-27 20:20:00 154.9 cm [facility] Body weight 2018-06-27 20:20:00 46.72 kg [facility] BMI 2018-06-27 20:20:00 19.46 kg/m2 [facility] Procedures Procedure Date / Time Performed Performing Clinician Source RAPID STREP SCREEN FOR GROUP A 2023-09-04 23:26:00 Jameel Rose [facility] POCT TEST 2023-08-07 01:23:00 Anita Locke [facility] CONSENT FOR CONTRACEPTION 2022-10-12 05:01:00 Doctor Unassigned, [place] [facility] POCT TEST 2022-08-30 19:06:00 Mack Macdonald [facility] GC & CHLAMYDIA AMPLIFIED ASSAY 2022-08-16 16:29:00 Gilma Macdonald [facility] PAP SMEAR-LIQUID BASED-CP 2022-08-16 16:29:00 Gilma Macdonald [facility] REPORT OF 2022-08-16 05:01:00 Doctor Luis Eduardo odonnell, [place] [facility] [id number] CONSENT 2022-08-16 05:01:00 Doctor Lyndseys signed, [place] [facility] COMP. METABOLIC PANEL ([id number]) 2022-07-19 02:32:00 Víctor Benson [facility] CBC WITH DIFF 2022-07-19 02:32:00 Víctor Benson [facility] POCT TEST 2022-07-19 02:29:00 Víctor Benson [facility] URINALYSIS 2022-07-19 02:26:00 Víctor Benson [facility] RAPID STREP SCREEN FOR GROUP A 2022-07-19 02:26:00 Víctor Benson [facility] RAPID INFLUENZA A/B 2022-07-19 02:26:00 Víctor Benson [facility] COVID-19 (ID NOW RAPID TESTING) 2022-07-19 02:26:00 Víctor Benson [facility] NOTICE OF PRIVACY PRACTICES 2022-07-19 01:49:51 Doctor Unassigned, [place] [facility] CONSENT/REFUSAL FOR DIAGNOSIS AND TREATMENT 2022-07-19 01:49:21 Doctor Unassigned, [place] [facility] POCT MOLECULAR FLU 2022-04-06 16:31:00 Unknown, Attend ing [facility] POCT MOLECULAR STREP 2022-04-06 16:29:00 Unknown, Atte ever [facility] POCT URINALYSIS W/O SPECIFIC GRAVITY 2018-06-27 00:00:00 Andrea Mclaughlin [facility] Encounters Start Date/Time End Date/Time Encounter Type Admission Type Attending [facility] Care Facility Care Department Encounter ID Source 2023-09-04 18:10:00 2023-09-04 19:59:00 Emergency X JAMEEL ROSE [facility] ERT [id number] [facility] 2023-09-04 18:10:00 2023-09-04 19:59:00 Emergency Jameel Rose [facility] [id number] [id number] [id number] [facility] 2023-08-06 19:20:00 2023-08-06 22:30:00 Emergency X NELA LOCKE [facility] ERT [id number] [facility] 2023-08-06 19:20:00 2023-08-06 22:30:00 Emergency Nela Locke [facility] [id number] [id number] [id number] [id number] [facility] 2023-01-04 09:30:00 2023-01-04 09:30:00 Outpatient R JAVI JOHNSON [facility]ERYAL [facility] [id number] [facility] 2022-10-12 08:30:00 2022-10-12 09:07:50 Outpatient JAVI GARRIDO [facility] [id number] [facility] 2022-10-12 08:30:00 2022-10-12 09:07:50 Office [address] Javi Johnson 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, Yvon - Javi Holland [facility] 1.84.114 350.1.13.10 4.2.7.2.686 [id number] [facility] 2022-10-10 13:00:00 2022-10-10 13:24:00 Outpatient JAVI GARRIDO CHERYAL [facility] [id number] [facility] 2022-10-10 13:00:00 2022-10-10 13:24:00 Office Visit Javi Johnson [facility][1] [id number] [id number] 4.2.7.2.686 [id number] [facility] 2022-10-10 00:00:00 2022-10-10 00:00:00 Patient Secure Msg Javi Johnson [facility][1] [id number] [id number] 4.2.7.2.686 [id number] [facility] 2022-09-12 08:00:00 2022-09-12 08:00:00 Outpatient R GILMA MACDONALD [facility] [id number] [facility] 2022-09-05 00:00:00 2022-09-05 00:00:00 Telephone Gilma Macdonald [facility] ADMINISTRATION & CHILD [facility] 1.2.840.114 350.1.13.10 4.2.7.2.686 [id number] [facility] 2022-09-05 00:00:00 2022-09-05 00:00:00 Patient Secure Msg Gilma Macdonald [facility] 1.2.840.114 350.1.13.10 4.2.7.2.686 [id number] [facility] 2022-09-04 08:30:00 2022-09-04 08:39:15 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, Yvon-Rmchp Gilma Macdonald [facility] 1.2.840.114 350.1.13.10 4.2.7.2.686 [id number] [facility] 2022-09-04 08:30:00 2022-09-04 08:30:00 Outpatient R GILMA MACDONALD [facility] [id number] [facility] 2022-09-01 08:30:00 2022-09-01 08:53:31 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, Ang-Rmchp TorresJuaquinGilma C PRR[place]ERTO R[facility]TE [facility] 1.2840.114 350.1.13.10 4.2.7.2.686 [id number] [facility] 2022-09-01 08:30:00 2022-09-01 08:30:00 Outpatient R MELIRODRIGOKAYLINGILMA [facility] [id number] [facility] 2022-08-30 13:45:00 2022-08-30 14:46:30 Outpatient R MELIRODRIGOKAYLINGILMA [facility] [id number] [facility] 2022-08-30 13:45:00 2022-08-30 14:46:30 Office Visit MelirodrigokaylinGilma Max [facility] R[facility]TE AGENT [facility] CHILD [facility] 1.840.114 350.1.13.10 4.2.7.2.686 [id number] [facility] 2022-08-18 08:00:00 2022-08-18 08:00:00 Outpatient R COREYKAYLINGILMA [facility] [id number] [facility] 2022-08-16 09:45:00 2022-08-16 11:22:49 Outpatient R COREYKAYLINGILMA [facility] [id number] [facility] 2022-08-16 09:45:00 2022-08-16 11:22:49 Office Visit TorresJuaquinGilma Max [facility] 1..840.114 350.1.13.10 4.2.7.2.686 [id number] [facility] 2022-08-16 00:00:00 2022-08-16 00:00:00 Orders Only Doctor Unassigned, [place] [facility] 1..114 350.1.13.10 4.2.7.2.686 [id number] [facility] 2022-08-04 10:30:00 2022-08-04 10:30:00 Outpatient R LEBRON HENSLEY [facility] [id number] [facility] 2022-07-18 21:02:00 2022-07-19 00:23:00 Emergency X VÍCTOR BENSON [facility] ERT [id number] [facility] 2022-07-18 21:02:00 2022-07-19 00:23:00 Emergency Víctor Benson S [facility] 1..114 350.1.13.10 4.2.7.2.686 [id number] [facility] 2022-07-19 00:00:00 2022-07-19 00:00:00 Patient Secure Msg Doctor Unassigned, [place] [facility] 1..114 350.1.13.10 4.2.7.2.686 [id number] [facility] 2022-07-18 00:00:00 2022-07-18 00:00:00 Patient Secure Msg Doctor Unassigned, [place] [facility] 1.20.114 350.1.13.10 4.2.7.2.686 [id number] [facility] 2022-04-06 09:20:00 2022-04-06 10:51:30 Outpatient R BRENDA BEARDEN [facility] [id number] [facility] 2022-04-06 09:20:00 2022-04-06 09:40:00 Urgent Care Brenda Bearden Unknown, Attending [facility] 1.84.114 350.1.13.10 4.2.7.2.686 [id number] [facility] 2022-04-06 00:00:00 2022-04-06 00:00:00 Letter (Out) Brenda Bearden [facility]OG[facility] 1..840.114 350.1.13.10 4.2.7.2.686 [id number] [facility] 2022-03-07 14:40:00 2022-03-07 14:40:00 Outpatient R BASIL DAVIS [facility] [id number] [facility] 2022-02-20 08:30:00 2022-02-20 08:30:00 Outpatient R LEBRON HENSLEY [facility] [id number] [facility] 2022-01-27 15:20:00 2022-01-27 15:20:00 Outpatient R BASIL DAVIS [facility] [id number] [facility] 2022-01-26 10:40:00 2022-01-26 10:40:00 Outpatient R BASIL DAVIS [facility] [id number] [facility] 2022-01-26 00:00:00 2022-01-26 00:00:00 Refill Basil Davis [facility] 1..840.114 350..13.10 4.2.7.2.686 [id number] [facility] 2022-01-03 08:00:00 2022-01-03 09:15:41 Outpatient R BASIL DAVIS [facility] [id number] [facility] 2022-01-03 08:00:00 2022-01-03 09:15:41 Telemedici ne Visit Basil Davis [facility] 1..840.114 350.1.13.10 4.2.7.2.686 [id number] [facility] 2022-01-03 08:00:00 2022-01-03 08:00:00 Outpatient R BASIL DAVIS [facility] [id number] [facility] 2022-01-03 00:00:00 2022-01-03 00:00:00 Telephone Ryan [facility] BUILDING 1..840.114 350.1.13.10 4.2.7.2.686 [id number] [facility] 2021-12-31 00:00:00 2021-12-31 00:00:00 Patient Secure Msg Doctor Unassigned, [place] [facility] 1..840.114 350.1.13.10 4.2.7.2.686 [id number] [facility] 2021-12-12 00:00:00 2021-12-12 00:00:00 Patient Secure Msg Basil Davis [facility] 1..840.114 350.1.13.10 4.2.7.2.686 [id number] [facility] 2021-12-11 00:00:00 2021-12-11 00:00:00 Telephone Lee [facility] EULOGIO?[facility] 1..840.114 350.1.13.10 4.2.7.2.686 [id number] [facility] 2021-12-09 19:40:00 2021-12-09 20:00:00 Urgent Care Matthew Tripp [facility] EULOGIO?JOSEYMarilee [facility] 1..840.114 350.1.13.10 4.2.7.2.686 [id number] [facility] 2021-12-09 19:40:00 2021-12-09 19:40:00 Outpatient R LEESTEPHANIE [facility] [id number] [facility] 2021-12-02 16:15:00 2021-12-02 16:30:00 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, [facility] Lab Alexandre [facility] PROFESSIO NAL BUILDING 1.2.840.114 350.1.13.10 4.2.7.2.686 [id number] [facility] 2021-12-02 13:00:00 2021-12-02 16:13:48 Imm/Inj Visit Vaccine, [facility] Family Medicine Lisa [facility] BUILDING 1.2.840.114 350.1.13.10 4.2.7.2.686 [id number] [facility] 2021-12-02 14:30:00 2021-12-02 16:11:03 Outpatient R RACHNA RUBIO [facility] [id number] [facility] 2021-12-02 14:30:00 2021-12-02 16:11:03 Office Visit Basil Davis Lisa [facility] BUILDING 1.2.840.114 350.1.13.10 4.2.7.2.686 [id number] [facility] 2021-12-02 00:00:00 2021-12-02 00:00:00 [facility] 1.2.840.114 350.1.13.10 4.2.7.2.686 [id number] [facility] 2021-10-25 08:14:00 2021-10-25 08:45:00 Emergency Licha Ron [facility] 1.2.840.114 350.1.13.10 4.2.7.2.686 [id number] [facility] 2021-10-25 08:14:00 2021-10-25 08:45:00 Emergency X ILCHA RON [facility] ERT [id number] [facility] 2021-10-25 00:00:00 2021-10-25 00:00:00 Orders Only Doctor Unassigned, [place] [facility] 1.840.114 350.1.13.10 4.2.7.2.686 [id number] [facility] 2021-08-17 13:15:00 2021-08-17 13:59:35 Office Visit Lebron Hensley [facility] 1.840.114 350.1.13.10 4.2.7.2.686 [id number] [facility] 2021-08-17 13:15:00 2021-08-17 13:59:35 Outpatient R LEBRON HENSLEY [facility] [id number] [facility] 2021-08-17 13:15:00 2021-08-17 13:15:00 Outpatient R LEBRON HENSLEY [facility] [id number] [facility] 2021-08-17 00:00:00 2021-08-17 00:00:00 Orders Only Doctor Unassigned, [place] [facility] 1.840.114 350.1.13.10 4.2.7.2.686 [id number] [facility] 2021-07-08 00:00:00 2021-07-08 00:00:00 Telephone Lebron Hensley [facility] 1.840.114 350.1.13.10 4.2.7.2.686 [id number] [facility] 2020-07-06 00:00:00 2020-07-06 00:00:00 Patient Outreach Wilber Swanson [facility] 1.2.840.114 350.1.13.10 4.2.7.2.686 [id number] 2020-03-17 13:40:00 2020-03-17 13:40:00 Outpatient R BASIL DAVIS [facility] [id number] [facility] 2020-02-17 00:00:00 2020-02-17 00:00:00 Refill Basil Davis [facility] Building 1.2.840.114 350.1.13.10 4.2.7.2.686 [id number] 2020-01-20 00:00:00 2020-01-20 00:00:00 Refill Basil Davis [facility] Building 1.2.840.114 350.1.13.10 4.2.7.2.686 [id number] 2020-01-17 00:00:00 2020-01-17 00:00:00 Refill Basil Davis [facility] Building 1.2.840.114 350.1.13.10 4.2.7.2.686 [id number] 2020-01-05 00:00:00 2020-01-05 00:00:00 Telephone Basil Davis [facility] Building 1.2.840.114 350.1.13.10 4.2.7.2.686 [id number] 2019-12-29 00:00:00 2019-12-29 00:00:00 Refill Basli Davis [facility] Building 1.2.840.114 350.1.13.10 4.2.7.2.686 [id number] 2019-12-25 09:51:03 2019-12-25 10:55:51 Office Visit Basil Davis [facility] Building 1.2.840.114 350.1.13.10 4.2.7.2.686 [id number] 2019-12-25 10:00:00 2019-12-25 10:00:00 Outpatient Naomy DAVIS BASIL [facility] [id number] [facility] 2019-09-24 14:40:00 2019-09-24 14:40:00 Outpatient Naomy SILVAANGELA DE LUNA [facility] [id number] [facility] 2018-06-27 15:15:00 2018-06-27 16:29:04 Outpatient ANDREA CAPELLAN MICHAEL [facility] [id number] [facility] 2018-06-27 15:15:00 2018-06-27 16:29:04 Routine Visit Andrea Mclaughlin [facility] 1.2.840.114 350.1.13.10 4.2.7.2.686 [id number] [facility] Results Test Description Test Time Test Comments Results Result Co mments Source [facility] [id number] 19:06:00* Test Item Value Reference Range Interpretation Comme nts POCT PREG (test code = 1605) Positive On board controls acceptable with C Line (test code = 3574) Yes POCT PREG LOT # (test code = 3575) POCT PREG TEST DATE ( test code = 3576) [facility] [id number] 19:06:00* Test Item Value Reference Range Interpretation Comme nts POCT PREG (test code = 1605) Positive On board controls acceptable with C Line (test code = 3574) Yes POCT PREG LOT # (test code = 3575) POCT PREG TEST DATE ( test code = 3576) [facility] [id number] 19:06:00* Test Item Value Reference Range Interpretation Comme nts POCT PREG (test code = 1605) Positive On board controls acceptable with C Line (test code = 3574) Yes POCT PREG LOT # (test code = 3575) POCT PREG TEST DATE ( test code = 3576) [facility] [id number] 19:06:00* Test Item Value Reference Range Interpretation Comme nts POCT PREG (test code = 1605) Positive On board controls acceptable with C Line (test code = 3574) Yes POCT PREG LOT # (test code = 3575) POCT PREG TEST DATE ( test code = 3576) [facility] [id number] 19:06:00* Test Item Value Reference Range Interpretation Comme nts POCT PREG (test code = 1605) Positive On board controls acceptable with C Line (test code = 3574) Yes POCT PREG LOT # (test code = 3575) POCT PREG TEST DATE ( test code = 3576) [facility] [id number] 19:06:00* Test Item Value Reference Range Interpretation Comme nts POCT PREG (test code = 1605) Positive On board controls acceptable with C Line (test code = 3574) Yes POCT PREG LOT # (test code = 3575) POCT PREG TEST DATE ( test code = 3576) [facility] [id number] 19:06:00* Test Item Value Reference Range Interpretation Comme nts POCT PREG (test code = 1605) Positive On board controls acceptable with C Line (test code = 3574) Yes POCT PREG LOT # (test code = 3575) POCT PREG TEST DATE ( test code = 3576) [facility] [id number] 19:06:00* Test Item Value Reference Range Interpretation Comme nts POCT PREG (test code = 1605) Positive On board controls acceptable with C Line (test code = 3574) Yes POCT PREG LOT # (test code = 3575) POCT PREG TEST DATE ( test code = 3576) [facility] [id number] 19:06:00* Test Item Value Reference Range Interpretation Comme nts POCT PREG (test code = 1605) Positive On board controls acceptable with C Line (test code = 3574) Yes POCT PREG LOT # (test code = 3575) POCT PREG TEST DATE ( test code = 3576) [facility] [id number] 19:06:00* Test Item Value Reference Range Interpretation Comme nts POCT PREG (test code = 1605) Positive On board controls acceptable with C Line (test code = 3574) Yes POCT PREG LOT # (test code = 3575) POCT PREG TEST DATE ( test code = 3576) [facility] [id number] 19:06:00* Test Item Value Reference Range Interpretation Comme nts POCT PREG (test code = 1605) Positive On board controls acceptable with C Line (test code = 3574) Yes POCT PREG LOT # (test code = 3575) POCT PREG TEST DATE ( test code = 3576) [facility] [id number] 19:06:00* Test Item Value Reference Range Interpretation Comme nts POCT PREG (test code = 1605) Positive On board controls acceptable with C Line (test code = 3574) Yes POCT PREG LOT # (test code = 3575) POCT PREG TEST DATE ( test code = 3576) [facility] WITH [id number] 03:32:20* Test Item Value Reference Range Interpretation [...] 34.7 g/dL 31.6-35.1 RDW-SD (test code = 75299-4) 37.8 fL 39.0-49.9 L RDW-CV (test code = 788-0) 12.6 % 12.0-15.5 PLT (test code = 777-3) 238 See_Comment [Automated message] The system which generated this result transmitted reference range: 166 - 358 10*3/?L. The reference range was not used to interpret this result as normal/abnormal. MPV (test code = 71017-5) 10.0 fL 9.5-12.9 NRBC/100 WBC (test code = 2125601186) 0.0 See_Comment [Automated message] The system which generated this result transmitted reference range: 0.0 - 10.0 /100 WBCs. The reference range was not used to interpret this result as normal/abnormal. NRBC x10^3 (test code = 3579243286) See_Comment [Automated message] The system which generated this result transmitted reference range: 10*3/?L. The reference range was not used to interpret this result as normal/abnormal. SEG % (test code = 33585-1) 82 % 33-76 H BAND % (test code = 22285-4) 7 % 0-1 H LYMPH % (test code = 49511-7) 6 % 14-54 L MONO % (test code = 03255-5) 5 % 0-4 H ANC (test code = 753-4) 18.75 10*3/uL 1.88-7.09 H TOXIC CHANGES (test code = 803-7) Present A Lab Interpretation (test code = 99052-1) [id number] 02:58:33* Test Item Value Reference Range Interpretation Comme nts NA (test code = 2818466685) 133 mmol/L 135-145 L K (test code = 0372173832) 3.7 mmol/L 3.5-5.0 CL (test code = 7698601939) 102 mmol/L 98-108 CO2 TOTAL (test code = 9885284009) 21 mmol/L 23-31 L AGAP (test code = 5729582096) 10 2-16 BUN (test code = 1181721667) 9 mg/dL 7-23 GLUCOSE (test code = 2062339221) 81 mg/dL 70-110 CREATININE (test code = 6227911663) 0.47 mg/dL 0.50-1.04 L TOTAL BILI (test code = 9258661381) 0.6 mg/dL 0.1-1.1 CALCIUM (test code = 9295249463) 9.0 mg/dL 8.6-10.6 T PROTEIN (test code = 4305034135) 7.1 g/dL 6.3-8.2 ALBUMIN (test code = 5236995045) 4.2 g/dL 3.5-5.0 ALK PHOS (test code = 5849163514) 52 U/L 34-122 ALTv (test code = 1742-6) 25 U/L 5-35 AST(SGOT) (test code = 3636307495) 27 U/L 13-40 eGFR (test code = 1200504756) 162.8 mL/min/1.73m2 ADARSH (test code = ADARSH) [...] imaging tests). Lab Interpretation (test code = 43734-5) Abnormal [facility] [id number] 02:29:00* Test Item Value Reference Range Interpretation Comme nts POCT PREG (test code = 1605) positive On board controls acceptable with C Line (test code = 3574) present POCT PREG LOT # (test code = 3575) [id number] POCT PREG TEST DATE ( test code = 3576) 2023-05-16 Lab Interpretation (test cod e = 60387-6) Normal [facility] MOLECULAR [id number] 16:42:50* Test Item Value Reference Range Interpretation Comme nts POCT Molecular FluA (test co de = 15735-9) Negative Negative POCT Molecular FluB (test co de = 27935-3) Negative Negative Lab Interpretation (test cod e = 87956-4) Normal [facility] MOLECULAR [id number] 16:37:24* Test Item Value Reference Range Interpretation Comme nts POCT Molecular Strep (test c ode = 21296-9) Negative Negative Lab Interpretation (test cod e = 30538-7) Normal [facility] URINALYSIS W/O SPECIFIC [id number] 21:33:00* Test Item Value Reference Range Interpretation [...] = 3257) Negative Negative - Negati ve [facility] URINALYSIS W/O SPECIFIC [id number] 21:33:00* Test Item Value Reference Range Interpretation Comme nts POCT PH U (test code = 3254) 5 mg/dl 5-8 POCT U LEUK EST (test code = 3263) trace Negative - Negative POCT U NIT (test code = 6542) Negative Negative - Negati ve POCT U PROT (test code = 8379) Negative Negative - Negat yisel POCT U GLU (test code = 2106) Negative Negative - Negati ve POCT U KETONE (test code = 9408) Negative Negative - Neg ative POCT U BLD (test code = 6267) Negative Negative - Negati ve [facility]"
--- NOTE | 2024-03-31 17:11 | EDPHYS ---
Physician Documentation [facility] Name: Mckenna Lou Age: 23 yrs Sex: Female : 2000 Arrival Date: 03/31/2024 Time: 16:28 Bed 16 Private MD: ED Physician Nacho Pro HPI: 03/31 17:01 This 23 yrs old Female presents to ER via Ambulatory with complaints of luis Suicidal Ideation. 17:01 The patient presents to the emergency department with anxiety, depression, suicide luis ideation, but the patient has no formulated plan. Onset: The symptoms/episode began/occurred 3 day(s) ago. Past psychiatric history: Prior diagnosis: depression, SUICIDE ATTEMPT. Associated signs and symptoms: The patient has no apparent associated signs or symptoms. Severity of symptoms: At their worst the symptoms were mild in the emergency department the symptoms are unchanged. The patient has experienced similar episodes in the past, multiple times. 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 - Infectious Disease History:: Denies. - Social history:: Smoking status: Patient denies any tobacco usage or history of. - Family history:: not pertinent. ROS: 17:01 Constitutional: Negative for fever, chills, and weight loss, Eyes: Negative for injury, luis pain, redness, and discharge, ENT: Negative for injury, pain, and discharge, Neck: Negative for injury, pain, and swelling, Cardiovascular: Negative for chest pain, palpitations, and edema, Respiratory: Negative for shortness of breath, cough, wheezing, and pleuritic chest pain, Abdomen/GI: Negative for abdominal pain, nausea, vomiting, diarrhea, and constipation, Back: Negative for injury and pain, : Negative for injury, bleeding, discharge, and swelling, MS/Extremity: Negative for injury and deformity, Skin: Negative for injury, rash, and discoloration, Neuro: Negative for headache, weakness, numbness, tingling, and seizure, Allergy/Immunology: Negative for hives, rash, and allergies, Endocrine: Negative for neck swelling, polydipsia, polyuria, polyphagia, and marked weight changes, Hematologic/Lymphatic: Negative for swollen nodes, abnormal bleeding, and unusual bruising, 17:01 Psych: Positive for anxiety, depression, suicidal ideation, Exam: 17:01 Constitutional: This is a well developed, well nourished patient who is awake, alert, luis and in no acute distress. Head/Face: Normocephalic, atraumatic. Eyes: Pupils equal round and reactive to light, extra-ocular motions intact. Lids and lashes normal. Conjunctiva and sclera are non-icteric and not injected. Cornea within normal limits. Periorbital areas with no swelling, redness, or edema. ENT: Nares patent. No nasal discharge, no septal abnormalities noted. Tympanic membranes are normal and external auditory canals are clear. Oropharynx with no redness, swelling, or masses, exudates, or evidence of obstruction, uvula midline. Mucous membranes moist. Neck: Trachea midline, no thyromegaly or masses palpated, and no cervical lymphadenopathy. Supple, full range of motion without nuchal rigidity, or vertebral point tenderness. No Meningismus. Chest/axilla: Normal chest wall appearance and motion. Nontender with no deformity. No lesions are appreciated. Cardiovascular: Regular rate and rhythm with a normal S1 and S2. No gallops, murmurs, or rubs. Normal PMI, no JVD. No pulse deficits. Respiratory: Lungs have equal breath sounds bilaterally, clear to auscultation and percussion. No rales, rhonchi or wheezes noted. No increased work of breathing, no retractions or nasal flaring. Abdomen/GI: Soft, non-tender, with normal bowel sounds. No distension or tympany. No guarding or rebound. No evidence of tenderness throughout. Back: No spinal tenderness. No costovertebral tenderness. Full range of motion. Skin: Warm, dry with normal turgor. Normal color with no rashes, no lesions, and no evidence of cellulitis. MS/ Extremity: Pulses equal, no cyanosis. Neurovascular intact. Full, normal range of motion., bilateral aka Neuro: Awake and alert, GCS 15, oriented to person, place, time, and situation. Cranial nerves II-XII grossly intact. Motor strength 5/5 in all extremities. Sensory grossly intact. Cerebellar exam normal. Normal gait. 17:01 Psych: Behavior/mood is cooperative, anxious, suicidal, depressed, Affect is animated, Oriented to person, place, time, Patient has no thoughts/intents to harm self or others. Judgement / Insight is normal. Memory is normal. Delusions/hallucinations are not present. 17:35 ECG was reviewed by the Attending Physician. [facility] Vital Signs: 16:42 BP 120 / 101; Pulse 95; Resp 16; Temp 97.8(TE); Pulse Ox 100% on R/A; Weight 47.63 kg; cm10 Height 5 ft. 1 in. ; Pain 0/10; 19:30 BP 142 / 68; Pulse 84; Resp 16; Temp 98.2; Pulse Ox 100% ; me1 04/01 07:30 BP 118 / 66; Pulse 75; Resp 18; Temp 97.5; Pulse Ox 98% on R/A; ph 11:57 BP 127 / 70; Pulse 81; Resp 18; Temp 97.5; Pulse Ox 99% on R/A; ph 03/31 16:42 Body Mass Index 19.84 (47.63 kg, 154.94 cm) cm10 03/31 16:42 Pain Scale: Adult cm10 MDM: 03/31 16:37 Medical Screening Exam initiated luis 17:06 Differential diagnosis: drug withdrawal. acute psychotic break, depression, psychosis luis secondary to non-compliance. Data reviewed: vital signs, nurses notes, lab test result(s), EKG. Consideration of Admission/Observation Escalation of care including admission/observation considered. I considered the following discharge prescriptions or medication management in the emergency department Medications were administered in the Emergency Department. See MAR. Independent interpretation of the following test(s) in the Emergency Department EKG: See my EKG interpretation above. Test considered but Not performed: CT: NO CT HEAD. Historians other than the Patient: PT WELL INFORMED. Care significantly affected by the following chronic conditions: DEPRESSION. Counseling: I had a detailed discussion with the patient and/or guardian regarding the historical points, exam findings, and any diagnostic results supporting the discharge/admit diagnosis, lab results, the need to transfer to another facility, for higher level of care, [facility] does not immediately have the required specialist. 04/01 04:15 ED course: Patient was evaluated and he actually is very upset. Patient was ordered sp4 lorazepam 2 mg p.o. for emotional upset. 08:56 ED course: Patient re-evaluated: Patient is without complaints. Cooperative, in NAD, ms3 resting in bed. Updated patient on plans for transfer.. 03/31 16:37 Order name: Acetaminophen; Complete Time: 18:28 [facility] 03/31 16:37 Order name: Basic Metabolic Panel; Complete Time: 18:28 [facility] 03/31 16:37 Order name: CBC with Diff; Complete Time: 18:28 [facility] 03/31 16:37 Order name: ETOH Level; Complete Time: 18:28 [facility] 03/31 16:37 Order name: Hepatic Function; Complete Time: 18:28 [facility] 03/31 16:37 Order name: PT-INR; Complete Time: 18:28 [facility] 03/31 16:37 Order name: Test, Urine; Complete Time: 20:59 [facility] 03/31 16:37 Order name: Ptt, Activated; Complete Time: 18:28 [facility] 03/31 16:37 Order name: Salicylate; Complete Time: 18:28 [facility] 03/31 16:37 Order name: Urinalysis w/ reflexes; Complete Time: 20:59 [facility] 03/31 16:37 Order name: Urine Drug Screen; Complete Time: 20:59 [facility] 03/31 16:37 Order name: EKG; Complete Time: 16:38 [facility] 03/31 16:37 Order name: EKG - Nurse/Tech; Complete Time: 17:41 [facility] 03/31 16:37 Order name: IV Saline Lock; Complete Time: 17:41 [facility] 03/31 16:37 Order name: Labs collected and sent; Complete Time: 17:41 [facility] 03/31 16:37 Order name: Suicide Precautions; Complete Time: 17:41 [facility] 03/31 16:37 Order name: Suicide Screening ([place]); Complete Time: 17:41 [facility] 03/31 20:59 Order name: Misc. Order: SIMONE PLEASE, NOT VOLUNTARY; Complete Time: 21:07 [facility] EC/16 17:35 Rate is 83 beats/min. Rhythm is regular. QRS [place] is Normal. [place] interval is normal. QRS luis interval is normal. QT interval is normal. No Q waves. T waves are Normal. No ST changes noted. Clinical impression: NSR w/ Non-specific ST/T Changes and No evidence of ischemia. Interpreted by me. Reviewed by me. Administered Medications: 17:50 Drug: NS 0.9% IV 1000 ml IV at 1000 ml once; to be given as a bolus over 60 minutes me1 Route: IV; Rate: 1000 ml; Site: right antecubital; 21:04 Follow up: Response: No adverse reaction; IV Status: Completed infusion; IV Intake: me1 1000ml 17:50 Drug: Ativan IVP 1 mg IVP once Route: IVP; Site: right antecubital; me1 17:55 Follow up: Response: No adverse reaction; Anxiety decreased me1 21:04 Drug: Ativan IVP 1 mg IVP once Route: IVP; Site: right antecubital; me1 22:05 Follow up: Response: No adverse reaction; Anxiety decreased me1 04/01 04:16 Drug: LORazepam PO 2 mg PO once Route: PO; kj2 05:51 Follow up: Response: No adverse reaction; Anxiety decreased kj2 Disposition Summary: 03/31/24 17:10 Transfer Ordered Notes: Transfer Location: Psych Facility luis Reason: Higher level of care luis Condition: Stable luis Problem: new luis Symptoms: have improved luis Accepting Physician: TO PSYCH(04/01/24 12:07) ph Diagnosis - Suicidal ideations luis - Major depressive disorder, recurrent, moderate luis - Adjustment disorder with mixed disturbance of emotions and conduct luis Forms: - Medication Reconciliation Form luis - SBAR form luis Critical care time excluding procedures: 03/31 17:09 Critical care time: Bedside Care: 30 minutes, Consultation: 10 minutes. Total time: 40 luis minutes Signatures: Dispatcher [employer] Ayush Westbrook MD MD cha Hall, Patricia, RN RN Nacho Hart DO DO ms3 Ray Tran MD MD sp4 Chrystal Gomez, RN RN cm10 Anum Cabral RN RN me1 Gayle Duran RN RN kj2 Corrections: (The following items were deleted from the chart) 16:38 16:38 ACETAMINOPHEN+C.LAB.BRZ ordered. EDMS EDMS 16:38 16:38 BASIC METABOLIC PANEL+C.LAB.BRZ ordered. EDMS EDMS 16:38 16:38 CBC+H.LAB.BRZ ordered. EDMS EDMS 16:38 16:38 ETHANOL+C.LAB.BRZ ordered. EDMS EDMS 16:38 16:38 HEPATIC FUNCTION+C.LAB.BRZ ordered. EDMS EDMS 16:38 16:38 PROTIME (+INR)+COAG.LAB.BRZ ordered. EDMS EDMS 16:38 16:38 Test, Urine+UC.LAB.BRZ ordered. EDMS EDMS 16:38 16:38 PTT, ACTIVATED+COAG.LAB.BRZ ordered. EDMS EDMS 16:38 16:38 SALICYLATE+C.LAB.BRZ ordered. EDMS EDMS 16:38 16:38 Urinalysis+U.LAB.BRZ ordered. EDMS EDMS 16:38 16:38 URINE DRUG SCREEN+UC.LAB.BRZ ordered. EDMS EDMS 20:58 20:58 Misc. Order ordered. luis luis 04/01 12:07 03/31 17:10 TO PSYCH luis ph
--- NOTE | 2024-03-31 17:11 | ER ---
Nurse's Notes [facility] Name: Mckenna Lou Age: 23 yrs Sex: Female : 2000 Arrival Date: 03/31/2024 Time: 16:28 Bed 16 Private MD: Diagnosis: Suicidal ideations;Major depressive disorder, recurrent, moderate;Adjustment disorder with mixed disturbance of emotions and conduct Presentation: 03/31 16:42 Chief complaint: Patient states: "IF I GO HOME I AM GOING TO HURT MYSELF." PT STATES cm10 THAT SHE DOES NOT HAVE A PLAN ON HOW SHE WOULD HURT HERSELF. PT STATES THAT SHE WROTE HER DAUGHTER A GOODBYE NOTE. PT STATES THAT SHE HAS BEEN HAVING SUICIDAL THOUGHTS ALL WEEK AND HAVE BEEN PROGRESSIVELY GETTING WORSE. PT STATES THAT SHE HAS HAD AN ATTEMPT ON MAY 2022 WHERE SHE TOOK PILLS. Coronavirus screen: Client denies travel out of the [place] in the last 14 days. Ebola Screen: Patient denies travel to an Ebola-affected area in the 21 days before illness onset. Initial Sepsis Screen: Does the patient meet any 2 criteria? No. Patient's initial sepsis screen is negative. Does the patient have a suspected source of infection? No. Patient's initial sepsis screen is negative. Risk Assessment: Do you want to hurt yourself or someone else? Patient reports no desire to harm self or others. Onset of symptoms was March 31, 2024. 16:42 Method Of Arrival: Ambulatory cm10 16:42 Acuity: VICKY 2 cm10 TOWN JUSTICE: 22:02 LMP N/A - Irregular menses, Not me1 Historical: - Allergies: 16:44 No Known Allergies; cm10 - Home Meds: 16:44 Lexapro Oral [Active]; Hydroxyzine Oral [Active]; cm10 - PMHx: 16:44 Depression; cm10 - PSHx: 16:44 section; cm10 - Immunization history:: Adult Immunizations up to date. - Infectious Disease History:: Denies. - Social history:: Smoking status: Patient denies any tobacco usage or history of. - Family history:: not pertinent. Screenin:46 [facility] ED Fall Risk Assessment (Adult) History of falling in the last 3 months, me1 including since admission No falls in past 3 months (0 pts) Confusion or Disorientation No (0 pts) Intoxicated or Sedated No (0 pts) Impaired Gait No (0 pts) Mobility Assist Device Used No (0 pt) Altered Elimination No (0 pt) Score/Fall Risk Level 0 - 2 = Low Risk Maintained a safe environment, Provided non-skid footwear, Hourly rounding (assess needs \\T\\ fall precautionary measures) done. Abuse screen: Denies threats or abuse. Nutritional screening: No deficits noted. Tuberculosis screening: No symptoms or risk factors identified. Assessment: 16:46 General: Appears well groomed, well developed, well nourished, Behavior is cooperative, me1 appropriate for age, anxious, crying, Reports "IF I GO HOME I AM GOING TO HURT MYSELF." PT STATES THAT SHE DOES NOT HAVE A PLAN ON HOW SHE WOULD HURT HERSELF. PT STATES THAT SHE WROTE HER DAUGHTER A GOODBYE NOTE. PT STATES THAT SHE HAS BEEN HAVING SUICIDAL THOUGHTS ALL WEEK AND HAVE BEEN PROGRESSIVELY GETTING WORSE. PT STATES THAT SHE HAS HAD AN ATTEMPT ON MAY 2022 WHERE SHE TOOK PILLS. Pain: Denies pain. Neuro: Level of Consciousness is awake, alert, obeys commands, Oriented to person, place, time, situation, Appropriate for age. Cardiovascular: Patient's skin is warm and dry. Respiratory: Airway is patent Respiratory effort is even, unlabored, Respiratory pattern is regular, symmetrical. GI: No signs and/or symptoms were reported involving the gastrointestinal system. : No signs and/or symptoms were reported regarding the genitourinary system. EENT: No signs and/or symptoms were reported regarding the EENT system. Derm: Skin is intact, is healthy with good turgor, Skin is pink, warm \\T\\ dry. Musculoskeletal: No signs and/or symptoms reported regarding the musculoskeletal system. 17:00 Reassessment: Patient can keep her cell phone with her per Dr Mari. Other me1 belongings to go home with friends. 19:15 General: Appears well groomed, well developed, well nourished, Behavior is cooperative, me1 appropriate for age, quiet. Pain: Denies pain. Neuro: Level of Consciousness is awake, alert, obeys commands, Oriented to person, place, time, situation, Appropriate for age. Cardiovascular: Patient's skin is warm and dry. Respiratory: Airway is patent Respiratory effort is even, unlabored, Respiratory pattern is regular, symmetrical. GI: No signs and/or symptoms were reported involving the gastrointestinal system. : No signs and/or symptoms were reported regarding the genitourinary system. EENT: No signs and/or symptoms were reported regarding the EENT system. Derm: Skin is intact, is healthy with good turgor, Skin is pink, warm \\T\\ dry. Musculoskeletal: No signs and/or symptoms reported regarding the musculoskeletal system. 20:17 General: nurse to nurse given to Netta at [facility].. me1 20:28 Reassessment: Nurse [facility] nurse with [facility]. me1 21:07 Reassessment: Officer Huy at bedside for SIMONE. me1 04/01 00:00 Reassessment: Pt resting in bed with eyes closed, respirations are even and unlabored jb4 with no s/s of pain or distress noted. 02:05 Reassessment: Patient appears in no apparent distress at this time. Patient and/or jb4 family updated on plan of care and expected duration. Pain level reassessed. Patient is alert, oriented x 3, equal unlabored respirations, skin warm/dry/pink. 02:20 Reassessment: Pt's phone taken and security called. Belongings sheet updated. Phone is jb4 an [employer] iphone 15. Explained hospital policy to pt, pt verbalized understanding of policy and gave up her phone. 02:45 Reassessment: Patient appears in no apparent distress at this time. Patient and/or kj2 family updated on plan of care and expected duration. Pain level reassessed. Patient is alert, oriented x 3, equal unlabored respirations, skin warm/dry/pink. 03:05 Reassessment: Patient appears in no apparent distress at this time. Patient and/or kj2 family updated on plan of care and expected duration. Pain level reassessed. Patient is alert, oriented x 3, equal unlabored respirations, skin warm/dry/pink. 04:05 Reassessment: Patient appears in no apparent distress at this time. Patient and/or kj2 family updated on plan of care and expected duration. Pain level reassessed. Patient is alert, oriented x 3, equal unlabored respirations, skin warm/dry/pink. 05:05 Reassessment: Patient appears in no apparent distress at this time. Patient and/or kj2 family updated on plan of care and expected duration. Pain level reassessed. Patient is alert, oriented x 3, equal unlabored respirations, skin warm/dry/pink. 07:00 Reassessment: Patient appears in no apparent distress at this time. Patient and/or ph family updated on plan of care and expected duration. Pain level reassessed. Patient is alert, oriented x 3, equal unlabored respirations, skin warm/dry/pink. General: Appears in no apparent distress. Behavior is asleep at this time. Cardiovascular: Patient's skin is warm and dry. Respiratory: Airway is patent Respiratory effort is even, unlabored, Respiratory pattern is regular, symmetrical. Psych: 03/31 16:46 [place] Suicide Severity Screening: In the past month, have you wished you were me1 or wished you could go to sleep and not wake up? Patient responds "yes." Based off the client's responses additional C-SSRS screening is required. "In the past month, have you actually had any thoughts of killing yourself?" Patient responds "yes." Based off the client's response additional [place] suicide severity screening questions to be further documented on paper forms. "In your lifetime, have you ever done anything, started to do anything, or prepared to do anything to end your life?" Patient responds "yes." Patient reports suicidal intent occurred greater than 3 months prior. Subjective: Patient's mood is sad, Delusions are denied, Hallucinations are denied Having thoughts of suicide. Denies suicidal plan. Objective: Patient is cooperative, Speech is normal, Affect is appropriate. Interventions: Removed personal items and placed in bag. Patient placed in hospital gown. Searched person for dangerous items. Urine collected and sent for urine drug test. Belonging list filled out. Safety Checks: Personal items have been removed. Pt has been placed in a hallway bed/chair. Visitors are present. Pt denies substance abuse. Commitment: Patient will be a voluntary commitment. 19:15 [place] Suicide Severity Screening: In the past month, have you wished you were me1 or wished you could go to sleep and not wake up? Patient responds "yes." Based off the client's responses additional C-SSRS screening is required. "In the past month, have you actually had any thoughts of killing yourself?" Patient responds "yes." Based off the client's response additional [place] suicide severity screening questions to be further documented on paper forms. "In your lifetime, have you ever done anything, started to do anything, or prepared to do anything to end your life?" Patient responds "yes." Patient reports suicidal intent occurred greater than 3 months prior. Subjective: Patient's mood is sad, Delusions are denied, Hallucinations are denied Having thoughts of suicide. Denies suicidal plan. Objective: Patient is cooperative, Speech is normal, Affect is appropriate. Interventions: Removed personal items and placed in bag. Patient placed in hospital gown. Searched person for dangerous items. Urine collected and sent for urine drug test. Belonging list filled out. Patient reassessed during use of restraints. Patient is physically safe. Safety Checks: Personal items have been removed. Pt has been placed in a hallway bed/chair. Visitors are present. Pt denies substance abuse. Commitment: Patient will be an involuntary commitment. [facility] called for SIMONE as patient had originally been voluntary but is starting to question if she can go home tonight. Vital Signs: 16:42 BP 120 / 101; Pulse 95; Resp 16; Temp 97.8(TE); Pulse Ox 100% on R/A; Weight 47.63 kg; cm10 Height 5 ft. 1 in. ; Pain 0/10; 19:30 BP 142 / 68; Pulse 84; Resp 16; Temp 98.2; Pulse Ox 100% ; me1 04/01 07:30 BP 118 / 66; Pulse 75; Resp 18; Temp 97.5; Pulse Ox 98% on R/A; ph 11:57 BP 127 / 70; Pulse 81; Resp 18; Temp 97.5; Pulse Ox 99% on R/A; ph 03/31 16:42 Body Mass Index 19.84 (47.63 kg, 154.94 cm) cm10 03/31 16:42 Pain Scale: Adult cm10 ED Course: 03/31 16:29 Patient arrived in ED. al6 16:37 Ayush Mari MD is Attending Physician. luis 16:44 Triage completed. cm10 16:45 Arm band placed on left wrist. Patient placed in an exam room, on a stretcher. cm10 16:46 Patient has correct armband on for positive identification. Bed in low position. Call me1 light in reach. Side rails up X2. Provided Education on: POC. Verbalized understanding.. Warm blanket given. 16:46 No provider procedures requiring assistance completed. me1 17:00 Inserted saline lock: 20 gauge in right antecubital area, using aseptic technique. am7 Blood collected. Flushed with 10 mL NS. 17:40 Anum Cabral, RN is Primary Nurse. me1 17:41 Acetaminophen Sent. me1 17:41 Basic Metabolic Panel Sent. me1 17:41 CBC with Diff Sent. me1 17:41 ETOH Level Sent. me1 17:41 Hepatic Function Sent. me1 17:41 PT-INR Sent. me1 17:41 Ptt, Activated Sent. me1 17:41 Salicylate Sent. me1 18:17 faxed chart to [facility]. 19:56 Faxed pt clinicals to the following facilities for placement; [facility], [address] 20:57 Called [facility] for SIMONE per physician request. rv1 21:01 Attending Physician role handed off by Ayush Mari MD sp4 21:01 Ray Tran MD is Attending Physician. sp4 21:07 [place] [facility] at [facility]. rv1 12 02:45 Report received from FLORENCE Aguilar. 2 07:35 informed [facility] that pt will be coming by mental health deputy. bd 08:29 contacted [facility] to have mental health deputy transport pt to [facility]. 08:56 Attending Physician role handed off by Ray Tran MD ms3 08:56 Nacho Pro DO is Attending Physician. ms3 11:56 IV discontinued, intact, bleeding controlled, No redness/swelling at site. Pressure ph dressing applied. Administered Medications: 03/31 17:50 Drug: NS 0.9% IV 1000 ml IV at 1000 ml once; to be given as a bolus over 60 minutes me1 Route: IV; Rate: 1000 ml; Site: right antecubital; 21:04 Follow up: Response: No adverse reaction; IV Status: Completed infusion; IV Intake: me1 1000ml 17:50 Drug: Ativan IVP 1 mg IVP once Route: IVP; Site: right antecubital; me1 17:55 Follow up: Response: No adverse reaction; Anxiety decreased me1 21:04 Drug: Ativan IVP 1 mg IVP once Route: IVP; Site: right antecubital; me1 22:05 Follow up: Response: No adverse reaction; Anxiety decreased me1 04/01 04:16 Drug: LORazepam PO 2 mg PO once Route: PO; kj2 05:51 Follow up: Response: No adverse reaction; Anxiety decreased kj2 Medication: 03/31 16:46 VIS not applicable for this client. me1 Intake: 21:04 IV: 1000ml; Total: 1000ml. me1 Outcome: 17:10 ER care complete, transfer ordered by . luis 04/01 11:56 [facility]red [facility] to other acute [facility]: [facility]. ph Condition: good 12:07 Patient left the ED. ph Signatures: Karyna aG Corey, MD MD cha Blanchard, Shelby, RN RN ss Devika Fischer RN RN ph Diego Duarte, RN RN jb4 Nacho Pro DO DO ms3 Kadi Hernandez rv1 Ray Tran MD MD sp4 Chrystal Gomez RN RN cm10 Anum Cabral RN RN me1 Gayle Duran RN RN kj2 Sachi Chawla am7 Giana Dixon6 Corrections: (The following items were deleted from the chart) 03/31 16:44 16:41 Chief complaint: ss cm10 20:59 20:57 Called [facility] for SIMONE rv1 rv1 21:58 16:42 Chief complaint: Patient states: "IF I GO HOME I AM GOING TO HURT MYSELF." PT me1 STATES THAT SHE DOES NOT HAVE A PLAN ON HOW SHE WOULD HURT HERSELF. PT STATES THAT SHE WROTE HER DAUGHTER A GOODBYE NOTE. PT STATES THAT SHE HAS BEEN HAVING SUICIDAL THOUGHTS ALL WEEK AND HAVE BEEN PROGRESSIVELY GETTING WORSE. PT STATES THAT SHE HAS HAD AN ATTEMPT ON MAY 2022 WHERE SHE TOOK PILLS. cm10
[2024-03-31 17:42] LABS: Absolute Eosinophils 0.1 K/uL (0-0.5); Absolute Lymphocytes (CBC) 2.7 K/uL (0.7-4.9); Absolute Monocytes 0.7 K/uL (0.1-1.3); Absolute Neutrophil 7.9 K/uL (1.8-8.0); Basophils % 0.4 % (0-1.3); Hematocrit 46.1 % (36.0-45.0); Hemoglobin 15.5 g/dL (12.0-15.0); Lymphocytes % 23.5 % (15.3-44.8); MCH 28.9 pg (27.0-35.0); MCHC 33.6 g/dL (32.0-36.0); MCV 85.9 fL (80-100); MPV 8.1 fL (7.6-11.3); Monocytes % 6.6 % (3.3-12.3); Neutrophils % 68.5 % (41.7-73.7); Nucleated Red Blood Cells % 0.1 % (0-0); Platelets 245 thou/uL (152-406); RBC Red Blood Cell Count 5.36 M/uL (3.86-4.86)
[2024-03-31] MEDS ORDERED: LORazepam 2 MG/ML VIAL ONE ×2 (17:43→21:02)
[2024-03-31] MEDS ORDERED: NA CHLORIDE 0.9% 1,000 ML ONE (17:45)
[2024-03-31 17:49] LABS: PTT, Activated Partial Thromb 32.5 SECONDS (24.3-36.9); Protime INR 0.98
[2024-03-31 18:01] LABS: ALT/SGPT 25 U/L (13-56); AST/SGOT 18 U/L (15-37); Albumin 4.1 g/dL (3.4-5.0); Albumin/Globulin Ratio 1.1 (1.1-1.8); Alkaline Phosphatase 57 U/L (45-117); Anion Gap 8.5 mEq/L (5.0-15.0); BUN Blood Urea Nitrogen 13 mg/dL (7-18); Bicarbonate 26 mEq/L (21-32); Bilirubin Direct 0.2 mg/dL (0-0.2); Bilirubin Indirect, Calculated 0.4 mg/dL (0.2-0.8); Bilirubin Total 0.6 mg/dL (0.2-1.0); Globulin 3.8 g/dL (2.3-3.5); Glomerular Filtration Rate 127 ml/min (=/>90); Glucose Level 85 mg/dL (74-106); Potassium 3.5 mEq/L (3.5-5.1); Protein, Total 7.9 g/dL (6.4-8.2); Sodium Level 138 mEq/L (136-145)
[2024-03-31 19:02] LABS: Specific Gravity 1.022 (1.005-1.030)
[2024-03-31 19:03] LABS: Specific Gravity 1.022 (1.005-1.030); Sqamous Epithelial <5 /HPF (None Seen); Urine Bacteria None Seen /HPF (<20); Urine Bilirubin NEGATIVE (Negative); Urine Blood Negative (Negative); Urine Clarity Extremely Turbid (Clear); Urine Color Light-Yellow (Yellow); Urine Crystals Unidentified Few /HPF (None Seen); Urine Culture Reflex Order NOT NEEDED; Urine Glucose NEGATIVE (Negative); Urine Ketones 1+ (Negative); Urine Microscopic Reflex YN ORDER UMIC; Urine Mucus Slight /HPF (None Seen); Urine Nitrite NEGATIVE (Negative); Urine Protein NEGATIVE (Negative); Urine RBC <5 /HPF (None Seen); Urine Urobilinogen Normal (Normal); Urine WBC Clump Occasional /HPF (None Seen); Urine Yeast (Budding) Moderate /HPF (None Seen); Urine pH 7.5 (5.0-7.0)
[2024-03-31 19:12] LABS: Barbiturates NEGATIVE (NEGATIVE); Benzodiazepines NEGATIVE (NEGATIVE); Cocaine NEGATIVE (NEGATIVE); METHAMPHETAM NEGATIVE (NEGATIVE); Methadone NEGATIVE (NEGATIVE); Opiates NEGATIVE (NEGATIVE); Phencyclidine NEGATIVE (NEGATIVE); THC Cannibis NEGATIVE (NEGATIVE)
[2024-04-01] MEDS ORDERED: LORAZEPAM 1 MG TABLET ONE (04:13)
[2024-04-01 12:37] VITALS: BP 127/70; TEMP 97.5; O2SAT 99
== END 2024-04-01 12:07 ==
LOC: ER 16:28
DX: R45.851 Suicidal ideations (principal); F33.1 Major depressive disorder, recurrent, moderate; F43.25 Adjustment disorder with mixed disturbance of emotions and conduct
CPT/HCPCS: 85025; 81001; 80048; 36415; 81025; 85610; 80076; 85730; 80307; 80143; 80179; 82077; J7030